=== PATIENT | male | born 1965 | race Caucasian/White ===

== ENCOUNTER 2017-03-15 16:48 | Emergency (ER) | payer SELFPAY ==
[~2017-03-15] VITALS: Ht 177.8 cm; Wt 140.0 kg
[~2017-03-15 16:48] MED LIST: ALLO300T2 PO; BUPR-105 PO; LEVO50TA11 PO; LORA1TAB3 PO; METO25TA6 PO; NITR0.4T39 SL; OMEP20CA10 PO; OXYC-533 PO; PRAV40TA PO; RIVA20TA PO; ZOLP5TAB8 PO
[2017-03-15 16:52] VITALS: Ht 177.8 cm; Wt 140.0 kg
--- OUTSIDE RECORDS SUMMARY | 2017-03-15 16:52 | XMS REPORT ---
Author Author GENERATED, SYSTEM Organization Unknown Address Unknown Phone Unavailable Care Team Providers Care Benefits Manager Name Role Phone UNASSIGNED DOCTOR , DOCTOR PP [phone] Reason For Visit Chief Complaint CHEST PAIN, SOB Social History Functional Status Vital Signs Results Chemistry from 03/23/2015 3:56 AMSODIUM 135 MMOL/L L (136-145 MMOL/L) POTASSIUM 4.2 MMOL/L (3.5-5.1 MMOL/L) CHLORIDE 97 MMOL/L L (98-107 MMOL/L) TCO2 31.4 MMOL/L (21.0-32.0 MMOL/L) ANION GAP 6.6 MMOL/L L (8.0-16.0 MMOL/L) BUN 19 MG/DL H (7-18 MG/DL) CREATININE 1.16 MG/DL H (0.63-1.13 MG/DL) BUN/CREATININE RATIO 16.4 (9.1-17.0 ) GLUCOSE 111 MG/DL H (65-99 MG/DL) GFR EST NON AFR MALAGASY 72 ML/MIN GFRA EST AFR AMER 84 ML/MIN CALCIUM 9.1 MG/DL (8.5-10.1 MG/DL) BILIRUBIN TOTAL 0.38 MG/DL (0.20-1.00 MG/DL) TOTAL PROTEIN 7.5 GM/DL (6.4-8.2 GM/DL) ALBUMIN 3.8 GM/DL (3.4-5.0 GM/DL) GLOBULIN 3.7 GM/DL H (2.3-3.5 GM/DL) A/G RATIO 1.0 MG/DL L (1.5-2.2 MG/DL) ALK PHOS 61 U/L (46-116 U/L) ALT (SGPT) 24 U/L (14-59 U/L) AST (SGOT) 15 U/L (15-37 U/L) TROPONIN-I <0.04 (SEE BELOW ) Hematology from 03/23/2015 3:56 AMWBC 8.9 X10e3/UL (3.6-11.2 X10e3/UL) RBC 4.22 X10e6/UL (4.06-5.63 X10e6/UL) HEMOGLOBIN 13.2 G/DL (12.5-16.3 G/DL) HEMATOCRIT 38.4 % (36.7-47.1 %) MCV 90.9 FL (80.0-100.0 FL) MCH 31.2 PG (27.0-33.0 PG) MCHC 34.3 G/DL (32.0-36.0 G/DL) RDW 13.8 % (12.3-17.0 %) RDWSD 43.3 (37.1-47.8 ) PLATELET 264 X10e3/UL (159-386 X10e3/UL) MPV 7.7 FL (7.4-10.4 FL) AUTOMATED DIFF PERFORMED SEGS 58.1 % LYMPHOCYTES 32.4 % MONOCYTES 7.8 % EOSINOPHILS 1.4 % BASOPHILS 0.3 % ABSOLUTE NEUTROPHILS 5.20 X10e3/UL (1.80-7.80 X10e3/UL) ABSOLUTE LYMPHOCYTES 2.90 X10e3/UL (1.00-3.00 X10e3/UL) ABSOLUTE MONOCYTES 0.70 X10e3/UL (0.30-1.00 X10e3/UL) ABSOLUTE EOSINOPHILS 0.10 X10e3/UL (0.00-0.50 X10e3/UL) ABSOLUTE BASOPHILS 0.00 X10e3/UL (0.00-0.20 X10e3/UL) DX Radiology from 03/23/2015 3:47 AMCHEST 2 VIEWS DATE OF EXAM: Mar 23 2015 4: 02AM Proc: DG 0067 - CHEST 2 VIEWS CPT Code(s): 53952-; ; ; INDICATION / CLINICAL HISTORY: Chest Pain Two views of the chest were obtained and compared to the prior study dated 03/11/2015. FINDINGS: There is unchanged cardiomegaly. The pulmonary vasculature is within normal limits. No consolidating infiltrate, pleural effusion, or pneumothorax is seen. IMPRESSION: Cardiomegaly without acute abnormality. Problems Encounter Diagnosis No relevant problems exist. Additional Problems * Acute Pain Comment:Problem resolved by [facility] Workflow upon Discharge, Status :Resolved. * Atrial Fibrillation Comment:Problem resolved by [facility] Workflow upon Discharge, Status:Resolved. * Chest Pain Comment:Problem resolved by [facility] Workflow upon Discharge, Status :Resolved. * Chest Pain Comment:Problem resolved by [facility] Workflow upon Discharge, Status :Resolved. * Chest Pain Comment:Problem resolved by [facility] Workflow upon Discharge, Status :Resolved. * Chest Pain Comment:Problem resolved by [facility] Workflow upon Discharge, Status :Resolved. * Fall Risk Comment:Problem resolved by [facility] Workflow upon Discharge, Status: Resolved. * Headache Comment:Problem resolved by [facility] Workflow upon Discharge, Status: Resolved. * History of Depression Comment:Problem resolved by [facility] Workflow upon Discharge, Status:Resolved. * History of Gout Comment:Problem resolved by [facility] Workflow upon Discharge, Status:Resolved. * History of Hypertension Comment:Problem resolved by [facility] Workflow upon Discharge, Status:Resolved. * History of Hypertension Comment:Problem resolved by [facility] Workflow upon Discharge, Status:Resolved. * History of Hypothyroidism Comment:Problem resolved by [facility] Workflow upon Discharge, Status:Resolved. * History of Myocardial Infarction Comment:Problem resolved by [facility] Workflow upon Discharge, Status:Resolved. * History of Myocardial Infarction Comment:Problem resolved by [facility] Workflow upon Discharge, Status:Resolved. * History of TIA Comment:Problem resolved by [facility] Workflow upon Discharge, Status:Resolved. * Hx CAD w/ Stent Placement Comment:Problem resolved by [facility] Workflow upon Discharge, Status:Resolved. * Hypercholesterolemia Comment:Problem resolved by [facility] Workflow upon Discharge, Status:Resolved. * Hyperglycemia Comment:Problem resolved by [facility] Workflow upon Discharge, Status:Resolved. * Hyperlipidemia Comment:Problem resolved by [facility] Workflow upon Discharge, Status:Resolved. * Hypothyroidism Comment:Problem resolved by [facility] Workflow upon Discharge, Status:Resolved. * Mobility Impairment Comment:Problem resolved by [facility] Workflow upon Discharge, Status:Resolved. * Rapid Atrial Fibrillation Comment:Problem resolved by [facility] Workflow upon Discharge, Status:Resolved. * Skin Integrity Impairment Risk Comment:Problem resolved by [facility] Workflow upon Discharge, Status:Resolved. * Tobacco Dependence in Remission Comment:Problem resolved by [facility] Workflow upon Discharge, Status:Resolved. Encounters Encounter Diagnosis No relevant problems exist. Plan of Care Procedures * Completed Procedure Code: 37.22 Procedure Name: not valued, on 02/11/2015 12: 00 AM * Completed Procedure Code: 88.53 Procedure Name: not valued, on 02/11/2015 12: 00 AM * Completed Procedure Code: 88.56 Procedure Name: not valued, on 02/11/2015 12: 00 AM Immunizations No immunizations administered or ordered. Hospital Course Hospital Discharge Instructions Allergies, Adverse Reactions, Alerts * Dilaudid causes Itching. * codeine causes Moderate Nausea/Vomiting. * Darvon causes unspecified. * Latex Allergy has not been assessed. * IV Contrast Allergy has not been assessed. * No Known Food Allergies. Medication Medication reconciliation has not been performed.
--- OUTSIDE RECORDS SUMMARY | 2017-03-15 16:53 | XMS REPORT ---
Author Author Stuart Baltazar Organization [facility] Address [address] [place], [place] [address] Care Team Providers Care Brush Finisher Name Role Phone Stuart Baltazar Unavailable [phone] PROBLEMS Type Condition ICD9-CM Code WHB87-DE Code Onset Dates Condition Status SNOMED Code Problem Anxiety 300.00 Active 43731888 Problem Hypothyroidism E03.9 Active 26396124 Problem Hypothyroidism 244.9 Active 87574240 Problem Panic attacks F41.0 Active 14421834 Problem Hyperlipidemia 272.4 Active 21591990 Problem Depression F32.9 Active 073426016 Problem Atrial fibrillation with RVR I48.91 Active 13677090 Problem Chronic anticoagulation Z79.01 Active 156214683 Problem Anxiety about health F41.8 Active 257256445 Problem Insomnia G47.00 Active 444216810 Problem Coronary artery disease 414.00 Active 29885689 Problem Gout 274.9 Active 60669356 Problem Essential hypertension 401.9 Active 57042912 Problem Knee pain, left M25.562 Active 617821800 Problem Coronary artery disease I25.10 Active 47375846 Problem Gout M10.9 Active 48371626 Problem 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 Active 879344172624645 Problem Acute gout 274.01 Active 73031730 Problem Atrial fibrillation 427.31 Active 99392564 Problem Atrial fibrillation with RVR 427.31 Active 69807118 Problem Cellulitis, face 682.0 Active 475938285 Problem Depression 311 Active 565625641 Problem Essential hypertension I10 Active 15310022 Problem Seborrheic dermatitis 690.10 Active 36962695 Problem Chronic anticoagulation V58.61 Active 040559106 ALLERGIES Unknown Allergies SOCIAL HISTORY No smoking Hx information available PLAN OF CARE VITAL SIGNS MEDICATIONS Unknown Medications RESULTS No Results PROCEDURES No Known procedures IMMUNIZATIONS No Known Immunizations
--- OUTSIDE RECORDS SUMMARY | 2017-03-15 16:53 | XMS REPORT ---
Author Author GENERATED, SYSTEM Organization Unknown Address Unknown Phone Unavailable Care Team Providers Care Director Of Physiotherapy Services Name Role Phone UNASSIGNED DOCTOR , DOCTOR PP [phone] Reason For Visit Chief Complaint CHEST PAIN NOS,CHEST PAIN,CHEST PAIN NOS,HISTORY OF TOBACCO USE Social History Functional Status Vital Signs Results Chemistry from 06/03/2015 3:15 PMCOCAINE NEGATIVE (NEG <150 ) PCP NEGATIVE (NEG <25 ) OXYCODONE POSITIVE A (NEG <100 ) *PROPOXYPHENE (NORPROPOXYPHENE) (LAB) NEGATIVE (NEG <300 ) CANNABINOIDS NEGATIVE (NEG <50 ) BENZODIAZEINE POSITIVE A (NEG <150 ) AMPHETAMINE NEGATIVE (NEG <500 ) BARBITURATES NEGATIVE (NEG <200 ) METHAMPHETAMINES POSITIVE A (NEG <500 ) METHADONE (UR) NEGATIVE (NEG <200 ) OPIATES POSITIVE A (NEG <100 ) TRICYCLICS NEGATIVE (NEG <300 ) Chemistry from 06/03/2015 2:43 PMSODIUM 138 MMOL/L (136-145 MMOL/L) POTASSIUM 4.4 MMOL/L (3.5-5.1 MMOL/L) CHLORIDE 103 MMOL/L (98-107 MMOL/L) TCO2 29.7 MMOL/L (21.0-32.0 MMOL/L) ANION GAP 5.3 MMOL/L L (8.0-16.0 MMOL/L) BUN 15 MG/DL (7-18 MG/DL) CREATININE 0.94 MG/DL (0.70-1.30 MG/DL) BUN/CREATININE RATIO 16.0 (9.1-17.0 ) GLUCOSE 112 MG/DL H (65-99 MG/DL) GFR EST NON AFR [place] >90 ML/MIN GFRA EST AFR AMER >90 ML/MIN CALCIUM 8.4 MG/DL L (8.5-10.1 MG/DL) BILIRUBIN TOTAL 0.26 MG/DL (0.20-1.00 MG/DL) TOTAL PROTEIN 7.1 GM/DL (6.4-8.2 GM/DL) ALBUMIN 3.3 GM/DL L (3.4-5.0 GM/DL) GLOBULIN 3.8 GM/DL H (2.3-3.5 GM/DL) A/G RATIO 0.9 MG/DL L (1.5-2.2 MG/DL) ALK PHOS 60 U/L (46-116 U/L) ALT (SGPT) 27 U/L (14-59 U/L) AST (SGOT) 16 U/L (15-37 U/L) LIPASE 79 U/L (73-393 U/L) TROPONIN-I <0.04 (SEE BELOW ) Hematology from 06/03/2015 2:43 PMWBC 9.4 X10e3/UL (3.6-11.2 X10e3/UL) RBC 4.42 X10e6/UL (4.06-5.63 X10e6/UL) HEMOGLOBIN 13.0 G/DL (12.5-16.3 G/DL) HEMATOCRIT 38.8 % (36.7-47.1 %) MCV 87.9 FL (80.0-100.0 FL) MCH 29.4 PG (27.0-33.0 PG) MCHC 33.4 G/DL (32.0-36.0 G/DL) RDW 12.7 % (12.3-17.0 %) PLATELET 280 X10e3/UL (159-386 X10e3/UL) MPV 7.6 FL (7.4-10.4 FL) AUTOMATED DIFF PERFORMED SEGS 66.4 % LYMPHOCYTES 25.3 % MONOCYTES 6.1 % EOSINOPHILS 1.6 % BASOPHILS 0.6 % ABSOLUTE NEUTROPHILS 6.10 X10e3/UL (1.80-7.80 X10e3/UL) ABSOLUTE LYMPHOCYTES 2.40 X10e3/UL (1.00-3.00 X10e3/UL) ABSOLUTE MONOCYTES 0.60 X10e3/UL (0.30-1.00 X10e3/UL) ABSOLUTE EOSINOPHILS 0.20 X10e3/UL (0.00-0.50 X10e3/UL) ABSOLUTE BASOPHILS 0.10 X10e3/UL (0.00-0.20 X10e3/UL) *PLATELET SLIDE REVIEW ADEQUATE (ADEQUATE ) Coagulation from 06/03/2015 2:43 PMPROTHROMBIN TIME 11.1 SECONDS (9.4-11.5 SECONDS) INR 1.1 (0.9-1.1 ) PARTIAL THROMBOPLASTIN TIME <20.0 SECONDS L (23.0-31.0 SECONDS) D-DIMER 0.55 MG/L FEU H (0.00-0.50 MG/L FEU) DX Radiology from 06/03/2015 2:10 PMCHEST 1 VIEW History: Chest Pain Priors: 04/14/2015 Findings: Mild denies cardiomegaly. No acute infiltrate, pneumothorax or pleural effusions identified. Impression: Cardiomegaly without evidence of acute cardiopulmonary process Electronically signed by: Dinh Moeller MD Dictated: 06/03/2015 14:40 CT Scan from 06/03/2015 2:09 PMCT CEREBRAL W/O CONTRAST History: Syncope x3 in the last 3 days. Priors: None. Findings: Ventricles and Extra axial spaces: Normal in size and morphology for the patient's age. Hemorrhage: None. Cerebral parenchyma: Normal. Mass effect/midline shift: None. Brainstem/Cerebellum: Normal. Calvarium: Normal. Visualized Paranasal sinuses/Mastoids: Clear. Impression: Unremarkable CT scan of the head. Electronically signed by: Dinh Moeller MD Dictated: 06/03/2015 14:19 Problems Encounter Diagnosis No relevant problems exist. Additional Problems * Acute Pain Comment:Problem resolved by [facility] Workflow upon Discharge, Status :Resolved. * Acute Pain Comment:Problem resolved by [facility] [...] Discharge Instructions Allergies, Adverse Reactions, Alerts * Percocet causes Mild Itching. * Dilaudid causes Itching. * codeine causes Moderate Nausea/Vomiting. * Darvon causes unspecified. * Latex Allergy has not been assessed. * IV Contrast Allergy has not been assessed. * No Known Food Allergies. Medication Medication reconciliation has not been performed.
--- OUTSIDE RECORDS SUMMARY | 2017-03-15 16:53 | XMS REPORT ---
Author Author GENERATED, SYSTEM Organization Unknown Address Unknown Phone Unavailable Care Team Providers Care Horse And Wagon Driver Name Role Phone UNASSIGNED DOCTOR MD TEZ DOCTOR PP [phone] Reason For Visit Chief Complaint CHEST PAIN/ WEAKNESS Social History Functional Status Vital Signs Results Problems Encounter Diagnosis No relevant problems exist. Additional Problems * Acute Pain Status:Active. * Atrial Fibrillation Status:Active. * Chest Pain Comment:Problem resolved by [facility] Workflow upon Discharge, Status :Resolved. * Chest Pain Comment:Problem resolved by [facility] Workflow upon Discharge, Status :Resolved. * Chest Pain Comment:Problem resolved by [facility] Workflow upon Discharge, Status :Resolved. * Chest Pain Status:Active. * Fall Risk Status:Active. * Headache Comment:Problem resolved by [facility] Workflow [...] Workflow upon Discharge, Status:Resolved. * Mobility Impairment Status:Active. * Rapid Atrial Fibrillation Comment:Problem resolved by [facility] Workflow upon Discharge, Status:Resolved. * Skin Integrity Impairment Risk Status:Active. * Tobacco Dependence in Remission Comment:Problem resolved [...]
--- OUTSIDE RECORDS SUMMARY | 2017-03-15 16:53 | XMS REPORT | Continuity of Care Document ---
Author Author [facility] Organization [facility] Address Unknown Phone Unavailable Support Name Relationship Address Phone JOVAN SUN MD Caregiver [address] [place] [address] Unavailable RACHELE PRYOR MD Caregiver [address] [place] [address] Unavailable SHARMILA VOGT JR Next Of Kin Unknown [phone] Insurance Providers Guarantor Sharmila Vogt Address [address] [place] [address] Email DENIED/NO TO PORTAL Payer Self Pay Subscriber's Name Sharmila Vogt Relationship 18 Self Advance Directives Directive Response Recorded Date/Time Advanced Directives Type None 10/31/16 2:29pm Chief Complaint and Reason for Visit Chief Complaint Psychiatric Problems Reason for Visit [id number] Problems Active Problems Medical Problem Onset Date Status ALLERGIC REACTION TO ROCEPHIN Unknown Acute Medical clearance for psychiatric admission Unknown Acute Past Problems Medical Problem Onset Date Atypical chest pain Unknown Atypical chest pain Unknown Medications Current Home Medications Medication Dose Units Route Directions Days Qty Instructions Start Date Allopurinol 300 Mg Tablet 300 Mg Oral Daily 09/23/16 Bupropion Hcl (Bupropion Hcl Sr) 150 Mg Tablet.er 150 Mg Oral Twice A Day 10/31/16 Levothyroxine Sodium 50 Mcg Tablet 50 Mcg Oral Before Breakfast 09/23/16 Lorazepam 1 Mg Tablet 1 Mg Oral Every 6 Hr Prn as needed for Anxiety 09/23/16 Metoprolol Tartrate 25 Mg Tablet 25 Mg Oral Twice A Day 10/03/16 Nitroglycerin 0.4 Mg Tab.subl 0.4 Mg Sublingual Every 5 Minutes X 3 as needed for Chest Tightness 10/03/16 Omeprazole 20 Mg Capsule.dr 20 Mg Oral Daily 10/03/16 Oxycodone Hcl/Acetaminophen (Oxycodone-Acetaminophen 10-325) 10-325 Tablet 1 Tab Oral Every 6 Hours as needed for Pain 10/03/16 Pravastatin Sodium (Pravachol) 40 Mg Tablet 40 Mg Oral Daily Rivaroxaban (Xarelto) 20 Mg Tablet 20 Mg Oral Daily 10/03/16 Zolpidem Tartrate 5 Mg Tablet 5-10 Mg Oral Bedtime 10/03/16 Past Home Medications Medication Directions Ordered Status Allopurinol 300 Mg Tablet, 300 Mg Oral Daily 10/28/12 Discontinued Allopurinol , 07/25/12 Discontinued Ascorbic Acid (Vitamin C) 1,000 Mg Tablet, 1000 Mg Oral Daily 02/27/13 Discontinued Cholecalciferol (Vitamin D) 1,000 Unit Tablet, 500 Unit Oral Daily 02/27/13 Discontinued Cyanocobalamin (Vitamin B-12) 1,000 Mcg Tablet, 1000 Mcg Oral Daily 02/27/13 Discontinued Ibuprofen 800 Mg Tablet, 800 Mg Oral Every 8 Hours as needed 03/14/13 Discontinued Metoprolol , Oral Daily 07/25/12 Discontinued Prednisone 20 Mg Tablet, 40 Mg Oral Daily 03/14/13 Discontinued Sertraline , 07/25/12 Discontinued Sertraline Hcl (Zoloft) 100 Mg Tablet, 100 Mg Oral Daily 10/28/12 Discontinued Vitamin E Mixed (Vitamin E) 1,000 Unit Capsule, 2000 Unit Oral Daily Discontinued Social History Social History Problem Response Recorded Date/Time Onset Date Status Hx Substance Use No 10/31/2016 2:33pm Not Applicable Not Applicable Hx Alcohol Use Y RARELY 10/31/2016 2:33pm Not Applicable Not Applicable Has the pt used tobacco in the last 12 months Yes 02/27/2013 3:09pm Not Applicable Not Applicable Query Response Start Date Stop Date Smoking Status Former smoker Hospital Discharge Instructions No hospital discharge instructions. Plan of Care Discharge Date 11/01/16 4:37pm Disposition 65 TO PSYCH HOSP/UNIT Condition at Discharge Improved Prescriptions See Medication Section Referrals JOVAN SUN MD Address: [address] [place] [phone] Functional Status No functional status results. Allergies, Adverse Reactions, Alerts Allergen Type Severity Reaction Status Last Updated propoxyphene HCl Allergy Unknown Active 10/31/16 ceftriaxone sodium Allergy Severe TONGUE SWELLING, DIFFICULTY BREATHING Active 10/31/16 Codeine Allergy Unknown Active 10/31/16 Immunizations Query Response on File Recorded Date/Time Hx Influenza Vaccination No 08/05/13 12:44pm Hx Pneumococcal Vaccination No 08/05/13 12:44pm Hx Influenza Vaccination No 08/05/13 12:44pm Influenza Vaccine Hx NO 10/03/16 5:57pm Vital Signs Acute Vital Signs Vital Response Date/Time Temperature (Fahrenheit) 98.1 deg F (96.8 - 99.1) 11/01/2016 4:56pm Temperature (Calculated Celsius) 36.85854 degrees C (36.0 - 37.3) 11/01/2016 4:56pm Pulse Rate (adult) 88 bpm (60 - 100) 11/01/2016 4:56pm Respiratory Rate 16 breaths/min (10 - 20) 11/01/2016 4:56pm O2 Sat by Pulse Oximetry 99 % (90 - 100) 11/01/2016 4:56pm Blood Pressure 146/78 mm Hg 11/01/2016 4:56pm Blood Pressure 136/77 mm Hg 11/01/2016 4:56pm Height (Feet) 5 feet 10/31/2016 2:29pm Height (Inches) 11.00 inches 10/31/2016 2:29pm Weight (Kilograms) 139.300 kg 10/31/2016 2:29pm Body Mass Index (BMI) 42.0 10/31/2016 2:29pm Results Laboratory Results Test Name Result Units Flags Reference Collection Date/Time Result Date/ Time Comments Total Bilirubin 0.40 MG/DL 0.20-1.30 09/23/2016 12:52am 09/23/2016 1: 13am Alkaline Phosphatase 60 U/L 38-126 09/23/2016 12:52am 09/23/2016 1: 13am Total Protein 7.2 G/DL 6.3-8.2 09/23/2016 12:52am 09/23/2016 1:13am Albumin 4.2 G/DL 3.5-5.0 09/23/2016 12:52am 09/23/2016 1:13am Globulin 3.0 G/DL 2.4-3.6 09/23/2016 12:52am 09/23/2016 1:13am Albumin/Globulin Ratio 1.4 RATIO 1.1-2.2 09/23/2016 12:52am 09/23/2016 1:13am Aspartate Amino Transf (AST/SGOT) 34 U/L 17-59 09/23/2016 12:52am 09/23 1:13am Alanine Aminotransferase (ALT/SGPT) 49 U/L 21-72 09/23/2016 12:52am 1:13am Magnesium Level 1.9 MG/DL 1.6-2.3 09/23/2016 12:52am 09/23/2016 1:13am Prothromb Time International Ratio 1.22 H 0.99-1.21 10/03/2016 6:10pm 10/03/2016 6:21pm THERAPUTIC RANGE=2.00-3.00 FOR ANTI-THROMBOSIS THERAPUTIC RANGE=2.50-3.50 FOR IMPLANTED VALVE D-Dimer < 150 NG/ML 0-230 10/03/2016 6:09pm 10/03/2016 7:39pm <230 NG/ ML D-DU=PRESUMPTIVE NEGATIVE FOR PE OR DVT >230 NG/ML D-DU=ADDITIONAL EVAL FOR PE OR DVT RECOMMENDED Troponin I < 0.012 ng/ml 0-0.12 10/03/2016 6:10pm 10/03/2016 6:38pm Troponin values with a difference of 55% increase from orginal troponin value represent a true biological DELTA value. (%increase Calc=Orginal Troponin value, divided by subsequent Troponin value, multiplied by 100) GM-Dyj-C-Type Natriuretic Peptide 75 PG/ML 0-175 10/03/2016 6:10pm 6:38pm Rule in cut points: <50 years old=450; 50-75 years old=900; >75 years old=1800; When utilizing ProBNP rule-in cut points, adjustment for impaired renal function is typically not required. White Blood Count 8.2 T/MM3 4.5-11.0 10/31/2016 3:12pm 10/31/2016 3: 17pm Red Blood Count 4.73 M/MM3 4.50-5.90 10/31/2016 3:12pm 10/31/2016 3: 17pm Hemoglobin 13.9 GM/DL 13.5-17.5 10/31/2016 3:12pm 10/31/2016 3:17pm Hematocrit 41.6 % 41-53 10/31/2016 3:12pm 10/31/2016 3:17pm Mean Corpuscular Volume 87.9 UM3 80-100 10/31/2016 3:10/31/2016 3: 17pm Mean Corpuscular Hemoglobin 29.4 UUG 26-34 10/31/2016 3:2015 3:17pm Mean Corpuscular Hemoglobin Concent 33.4 GM/DL 31-37 10/31/2016 3:10/31/2016 3:17pm RDW Standard Deviation 43.1 FL 36.9-50.2 10/31/2016 3:10/31/2016 3 :17pm Platelet Count 268 T/MM3 130-400 10/31/2016 3:10/31/2016 3:17pm Mean Platelet Volume 9.7 UM3 9.4-12.4 10/31/2016 3:10/31/2016 3: 17pm Neutrophils (%) (Auto) 61.9 % 33-66 10/31/2016 3:10/31/2016 3: 17pm Lymphocytes (%) (Auto) 27.9 % 23-45 10/31/2016 3:10/31/2016 3: 17pm Monocytes (%) (Auto) 8.3 % 0-9.0 10/31/2016 3:10/31/2016 3:17pm Eosinophils (%) (Auto) 1.3 % 0-4 10/31/2016 3:10/31/2016 3:17pm Basophils (%) (Auto) 0.1 % 0-2 10/31/2016 3:10/31/2016 3:17pm Immature Granulocyte % (Auto) 0.5 % 0.0-0.5 10/31/2016 3:2015 3:17pm Absolute Neutrophils (auto) 5.1 T/MM3 1.8-7.7 10/31/2016 3:2015 3:17pm Absolute Lymphocytes (auto) 2.3 T/MM3 1-4.8 10/31/2016 3:2015 3:17pm Absolute Monocytes (auto) 0.7 T/MM3 0-0.8 10/31/2016 3:12p10/31/2016 3:17pm Absolute Eosinophils (auto) 0.1 T/MM3 0-0.5 10/31/2016 3:2015 3:17pm Absolute Basophils (auto) 0.0 T/MM3 0-0.2 10/31/2016 3:10/31/2016 3:17pm Absolute Immature Granulocyte (auto 0.04 T/MM3 H 0.00-0.03 10/31/2016 3: 10/31/2016 3:17pm Icterus Index < 2 0-7 10/31/2016 3:10/31/2016 3:27pm Chemistry Specimen Hemolysis < 15 0-25 10/31/2016 3:10/31/2016 3 :27pm 0-25: Specimen Exhibited No Hemolysis. Turbidity < 20 0-20 10/31/2016 3:10/31/2016 3:27pm Sodium Level 141 MEQ/L 134-144 10/31/2016 3:10/31/2016 3:27pm Potassium Level 4.7 MEQ/L 3.6-5 10/31/2016 3:10/31/2016 3:27pm Chloride Level 103 MEQ/L 98-107 10/31/2016 3:10/31/2016 3:27pm Carbon Dioxide Level 28 MEQ/L 22-30 10/31/2016 3:10/31/2016 3: 27pm Anion Gap 10 MEQ/L 5-15 10/31/2016 3:10/31/2016 3:27pm Blood Urea Nitrogen 14.0 MG/DL 9-10/31/2016 3:10/31/2016 3: 27pm Creatinine 1.0 MG/DL 0.8-1.5 10/31/2016 3:10/31/2016 3:27pm BUN/Creatinine Ratio 14 RATIO 6-10/31/2016 3:10/31/2016 3:27pm Glomerular Filtration Rate Calc 78 10/31/2016 3:10/31/2016 3: 27pm Glucose Level 101 MG/DL 75-110 10/31/2016 3:10/31/2016 3:27pm Calculated Osmolality 272 MOSM/KG 261-280 10/31/2016 3:10/31/2016 3:27pm Calcium Level 9.6 MG/DL 8.4-10.2 10/31/2016 3:12pm 10/31/2016 3:27pm Acetaminophen Level < 10 UG/ML L 10-30 10/31/2016 3:12pm 10/31/2016 4: 47pm TOXIC <4 HR POST INGESTION: >150 MG/L; TOXIC <12 HR POST INGESTION: >50 MG/L Salicylates Level < 1.0 MG/DL L 2-20 10/31/2016 3:12pm 10/31/2016 4: 47pm Alcohol, Quantitative <10 MG/DL <10 10/31/2016 3:12pm 10/31/2016 4: 47pm Thyroid Stimulating Hormone (TSH) 1.97 MIU/L 0.47-4.68 10/31/2016 3: 12pm 10/31/2016 3:56pm Urine Collection Type [place] 10/31/2016 3:56pm 2015 4:05pm Urine Color YELLOW YELLOW 10/31/2016 3:56pm 10/31/2016 4:05pm Urine Turbidity CLEAR CLEAR 10/31/2016 3:56pm 10/31/2016 4:05pm Urine Specific [place] 1.020 1.015-1.025 10/31/2016 3:56pm 2015 4:05pm Urine pH 6.5 5.0-8.0 10/31/2016 3:56pm 10/31/2016 4:05pm Urine Leukocyte Esterase NEGATIVE NEGATIVE 10/31/2016 3:56pm 2015 4:05pm Urine Nitrite NEGATIVE NEGATIVE 10/31/2016 3:56pm 10/31/2016 4:05pm Urine Protein TRACE A NEGATIVE 10/31/2016 3:56pm 10/31/2016 4:05pm Urine Glucose (UA) NEGATIVE NEGATIVE 10/31/2016 3:56pm 10/31/2016 4: 05pm Urine Ketones NEGATIVE NEGATIVE 10/31/2016 3:56pm 10/31/2016 4:05pm Urine Urobilinogen 0.2 EU/DL NORMAL 10/31/2016 3:56pm 10/31/2016 4: 05pm Urine Bilirubin NEGATIVE NEGATIVE 10/31/2016 3:56pm 10/31/2016 4: 05pm Urine Blood NEGATIVE NEGATIVE 10/31/2016 3:56pm 10/31/2016 4:05pm Urinalysis Comment MICROSCOPIC NOT IND. 10/31/2016 3:56pm 2015 4:05pm Procedures Procedure Status Date Provider(s) MRI JNT OF [facility]WR SANDI W/O DYE Completed 08/08/16 THER/PROPH/DIAG INJ IV PUSH Completed 09/23/16 TX/PRO/DX INJ NEW DRUG ADDON Completed 09/23/16 TX/PRO/DX INJ SAME DRUG TERRITORY MANAGER Completed 09/23/16 THER/PROPH/DIAG INJ IV PUSH Completed 10/03/16 TX/PRO/DX INJ NEW DRUG ADDON Completed 10/03/16 Encounters Encounter Location Arrival/Admit Date Discharge/Depart Date Attending Provider Departed Emergency Room [facility] 10/31/16 2:24pm 11/01/16 4: 37pm RACHELE PRYOR MD Departed Emergency Room [facility] 10/03/16 5:48pm 10/03/16 8: 50pm MARCHAVINASH DO Departed Emergency Room [facility] 09/23/16 12:40am 09/23/16 2: 51am JODY PARTIDA MD Registered Clinic [facility] 08/08/16 3:02pm JOVAN SUN MD Recent Diagnosis
--- OUTSIDE RECORDS SUMMARY | 2017-03-15 16:53 | XMS REPORT ---
Author Author GENERATED, SYSTEM Organization Unknown Address Unknown Phone Unavailable Care Team Providers Care Buckram Sewer Name Role Phone UNASSIGNED DOCTOR , DOCTOR PP [phone] Reason For Visit Reason for Visit from 03/12/2015 1:32 AM:* Pt Stated Reason for Adm : Afib and chest pain Chief Complaint AFIB CP Social History Social History from 03/13/2015 10:34 AM:* Tobacco Use? : Former Smoker Social History from 03/12/2015 1:32 AM:* Tobacco Use? : Former Smoker Functional Status Functional Status from 03/13/2015 7:45 AM:* LOC : Alert * Oriented To : Person,Place,Time,Event * Weight Bearing Status : Full * Assist Level : Independent * # Assists : Independent Functional Status from 03/12/2015 7:54 PM:* LOC : Alert * Oriented To : Person,Place,Time,Event * Weight Bearing Status : Full * Assist Level : Independent * # Assists : Independent Functional Status from 03/12/2015 8:10 AM:* LOC : Alert * Oriented To : Person,Place,Time,Event * Weight Bearing Status : Full * Assist Level : Independent * # Assists : Independent Functional Status from 03/12/2015 1:32 AM:* LOC : Alert * Oriented To : Person,Place,Time,Event * Weight Bearing Status : Full * Assist Level : Partial * # Assists : 1 Vital Signs Hospital Vital Signs from 03/13/2015 7:28 AM:* Height : 5/11 ft,in * Temperature : 97.6 F * Pulse : 52 * Respirations : 20 * BP : 151/79 Hospital Vital Signs from 03/13/2015 3:10 AM:* Height : 5/11 ft,in * Temperature : 97.6 F * Pulse : 61 * Respirations : 20 * BP : 108/54 Hospital Vital Signs from 03/12/2015 9:15 PM:* Height : 5/11 ft,in * Pulse : 60 * Respirations : 20 * BP : 132/72 Hospital Vital Signs from 03/12/2015 7:54 PM:* Heart Rate : 65 Hospital Vital Signs from 03/12/2015 7:00 PM:* Heart Rate : 51 Hospital Vital Signs from 03/12/2015 6:00 PM:* Heart Rate : 60 Hospital Vital Signs from 03/12/2015 5:00 PM:* Heart Rate : 56 Hospital Vital Signs from 03/12/2015 4:45 PM:* Heart Rate : 55 Hospital Vital Signs from 03/12/2015 4:30 PM:* Heart Rate : 54 Hospital Vital Signs from 03/12/2015 4:15 PM:* Heart Rate : 55 Hospital Vital Signs from 03/12/2015 4:00 PM:* Heart Rate : 52 Hospital Vital Signs from 03/12/2015 3:45 PM:* Heart Rate : 57 Hospital Vital Signs from 03/12/2015 3:30 PM:* Heart Rate : 56 Hospital Vital Signs from 03/12/2015 2:45 PM:* Heart Rate : 0 * Resp Rate : 13 * Systolic BP (mmHg) : 110 * Diastolic BP (mmHg) : 74 * Mean BP (mmHg) : 85 Hospital Vital Signs from 03/12/2015 12:15 PM:* Heart Rate : 63 * Resp Rate : 18 Hospital Vital Signs from 03/12/2015 9:00 AM:* Weight : 137.5/ kg * Height : 5/11 ft,in Hospital Vital Signs from 03/12/2015 8:15 AM:* Temp : 96.8 * Heart Rate : 51 * Systolic BP (mmHg) : 102 * Diastolic BP (mmHg) : 69 * Mean BP (mmHg) : 81 * O2 Saturation (%) : 96 Hospital Vital Signs from 03/12/2015 8:10 AM:* Heart Rate : 54 Hospital Vital Signs from 03/12/2015 6:15 AM:* Heart Rate : 60 * O2 Saturation (%) : 98 Hospital Vital Signs from 03/12/2015 6:00 AM:* Heart Rate : 60 * Systolic BP (mmHg) : 132 * Diastolic BP (mmHg) : 80 * Mean BP (mmHg) : 96 * O2 Saturation (%) : 98 Hospital Vital Signs from 03/12/2015 5:45 AM:* Heart Rate : 55 * O2 Saturation (%) : 98 Hospital Vital Signs from 03/12/2015 5:30 AM:* Heart Rate : 53 * O2 Saturation (%) : 96 Hospital Vital Signs from 03/12/2015 5:15 AM:* Heart Rate : 59 * O2 Saturation (%) : 95 Hospital Vital Signs from 03/12/2015 5:00 AM:* Heart Rate : 63 * Resp Rate : 21 * Systolic BP (mmHg) : 137 * Diastolic BP (mmHg) : 82 * Mean BP (mmHg) : 98 * O2 Saturation (%) : 97 Hospital Vital Signs from 03/12/2015 4:45 AM:* Heart Rate : 62 * O2 Saturation (%) : 92 Hospital Vital Signs from 03/12/2015 4:30 AM:* Heart Rate : 60 * O2 Saturation (%) : 95 Hospital Vital Signs from 03/12/2015 4:15 AM:* Heart Rate : 67 * O2 Saturation (%) : 94 Hospital Vital Signs from 03/12/2015 4:00 AM:* Heart Rate : 58 * Resp Rate : 17 * Systolic BP (mmHg) : 122 * Diastolic BP (mmHg) : 72 * Mean BP (mmHg) : 87 * O2 Saturation (%) : 98 Hospital Vital Signs from 03/12/2015 3:45 AM:* Heart Rate : 58 * Systolic BP (mmHg) : 95 * Diastolic BP (mmHg) : 59 * Mean BP (mmHg) : 71 * O2 Saturation (%) : 98 Hospital Vital Signs from 03/12/2015 3:30 AM:* Heart Rate : 63 * O2 Saturation (%) : 98 Hospital Vital Signs from 03/12/2015 3:15 AM:* Heart Rate : 60 * O2 Saturation (%) : 95 Hospital Vital Signs from 03/12/2015 3:00 AM:* Heart Rate : 69 * O2 Saturation (%) : 97 Hospital Vital Signs from 03/12/2015 2:30 AM:* Heart Rate : 67 * Systolic BP (mmHg) : 121 * Diastolic BP (mmHg) : 77 * Mean BP (mmHg) : 90 * O2 Saturation (%) : 99 Hospital Vital Signs from 03/12/2015 2:15 AM:* Heart Rate : 63 * Systolic BP (mmHg) : 111 * Diastolic BP (mmHg) : 79 * Mean BP (mmHg) : 89 * O2 Saturation (%) : 98 Hospital Vital Signs from 03/12/2015 2:00 AM:* Temp : 98.2 * Heart Rate : 65 * Resp Rate : 19 * Systolic BP (mmHg) : 116 * Diastolic BP (mmHg) : 78 * Mean BP (mmHg) : 94 * O2 Saturation (%) : 98 Hospital Vital Signs from 03/12/2015 1:45 AM:* Heart Rate : 66 * Systolic BP (mmHg) : 119 * Diastolic BP (mmHg) : 82 * Mean BP (mmHg) : 94 * O2 Saturation (%) : 97 Hospital Vital Signs from 03/12/2015 1:32 AM:* Weight : 137.5/ kg * Height : 5/11 ft,in Results Chemistry from 03/12/2015 10:00 AMCOCAINE NEGATIVE (NEG <150 ) PCP NEGATIVE (NEG <25 ) OXYCODONE NEGATIVE (NEG <100 ) *PROPOXYPHENE (NORPROPOXYPHENE) (LAB) NEGATIVE (NEG <300 ) CANNABINOIDS NEGATIVE (NEG <50 ) BENZODIAZEINE NEGATIVE (NEG <150 ) AMPHETAMINE NEGATIVE (NEG <500 ) BARBITURATES NEGATIVE (NEG <200 ) METHAMPHETAMINES NEGATIVE (NEG <500 ) METHADONE (UR) NEGATIVE (NEG <200 ) OPIATES POSITIVE A (NEG <100 ) TRICYCLICS NEGATIVE (NEG <300 ) Problems Encounter Diagnosis * Acute Pain Comment:Problem resolved by [facility] Workflow upon Discharge, Status :Resolved. * Atrial Fibrillation Status:Active. * Chest Pain Status:Active. * Fall Risk Comment:Problem resolved by [facility] Workflow upon Discharge, Status: Resolved. * Mobility Impairment Comment:Problem resolved by [facility] Workflow upon Discharge, Status:Resolved. * Skin Integrity Impairment Risk Comment:Problem resolved by [facility] Workflow upon Discharge, Status:Resolved. Additional Problems * Headache Comment:Problem resolved by [facility] Workflow [...] Workflow upon Discharge, Status:Resolved. Encounters Encounter Diagnosis * Acute Pain Comment:Problem resolved by [facility] Workflow upon Discharge, Status :Resolved. * Atrial Fibrillation Status:Active. * Chest Pain Status:Active. * Fall Risk Comment:Problem resolved by [facility] Workflow upon Discharge, Status: Resolved. * Mobility Impairment Comment:Problem resolved by [facility] Workflow upon Discharge, Status:Resolved. * Skin Integrity Impairment Risk Comment:Problem resolved by [facility] Workflow upon Discharge, Status:Resolved. Plan of Care Follow-up Appointments from 03/13/2015 10:34 AM:* #1 Office appointment: : Dr. Caban-call for appt in 1-2 weeks * Address # 1 : [facility]: [facility] [place], [place]- or Treatment Plan from 03/12/2015 1:15 PM:* Care Management Note : Patient has no current insurance provider per facesheet in document imaging.Patient admitted to ICU due to a fib and chest pain. Patient treated with nitro paste, IV diltiazem, lovenox, and cardio consult. Plan of care is expected to exceed 2 midnights at this time. Procedures * Completed Procedure Code: 37.22 Procedure Name: not valued, on 02/11/2015 12: 00 AM * Completed Procedure Code: 88.53 Procedure Name: not valued, on 02/11/2015 12: 00 AM * Completed Procedure Code: 88.56 Procedure Name: not valued, on 02/11/2015 12: 00 AM Immunizations No immunizations administered or ordered. Hospital Course Hospital Discharge Instructions How to care for yourself at home from 03/13/2015 10:34 AM:* Discharge Activity : Activity as tolerated * Discharge Diet : Modification as given by physician * Discharge Diet: : cardiac * Call your doctor if: : Fever over 101 F or severe chills,Chest pain or other unexplained symptoms,Tingling or numbness develops,A sudden increase or decrease in weight,You have persistent or worsening symptoms,If you have Heart Failure and you gain 3 pounds within 1 week or your symptoms worsen. (Weigh at home tomorrow morning) * Specific Discharge Teaching Instructions provided: : No * Discharge on Warfarin : No Allergies, Adverse Reactions, Alerts * Dilaudid causes Itching. * codeine causes Moderate Nausea/Vomiting. * Darvon causes unspecified. * No Latex Allergy. * No IV Contrast Allergy. * No Known Food Allergies. Medication It is the responsibility of the patient or patient technology sales representative to confirm the list of medications with either the patient's personal care provider or the patient's follow-up care provider to ensure the patient has an appropriate list of medications to take at home. Discharge medications New medications* flecainide 50 mg Tablet, Ordered By: KARI PHILLIPS APRN Directions: 1 tablet oral twice a day Continued medications* aspirin 325 mg Tablet, Ordered By: KARI PHILLIPS APRN Directions: 1 tablet oral daily every morning Additional Instructions: PHARMACIST: TO BE STARTED TOMORROW (DO NOT CHANGE START DATE/TIME). * atorvastatin (Lipitor) 20 mg Tablet, Ordered By: KARI PHILLIPS APRN Directions: 1 tablet oral daily at bedtime * metoprolol tartrate 50 mg Tablet, Ordered By: KARI PHILLIPS APRN Directions: 1 tablet oral twice a day every morning and at bedtime Additional Instructions: Dr PRAKASH Caban's office is resp for refills * allopurinol 300 mg Tablet, Ordered By: MAC MERLOS RN Directions: 1 tablet oral daily * levothyroxine (Synthroid) 50 mcg Tablet, Ordered By: MAC MERLOS RN Directions: 1 tablet oral daily every morning * sertraline (Zoloft) 50 mg Tablet, Ordered By: MAC MERLOS RN Directions: 1 tablet oral daily every evening * isosorbide mononitrate 60 mg Tablet Extended Release 24 hr, Ordered By: KARI PHILLIPS APRN Directions: 1 tablet oral daily every morning Additional Instructions: Dr PRAKASH Caban's office is resp for refills Stopped medications* None
--- OUTSIDE RECORDS SUMMARY | 2017-03-15 16:53 | XMS REPORT ---
Author Author GENERATED, SYSTEM Organization Unknown Address Unknown Phone Unavailable Care Team Providers Care Smokehouse Worker Name Role Phone UNASSIGNED DOCTORMD DOCTOR PP [phone] Reason For Visit Reason for Visit from 06/29/2014 1:34 AM:* Pt Stated Reason for Adm : Stabbing chest pain. Chief Complaint CHEST PAIN Social History Social History from 06/29/2014 1:34 AM:* Tobacco Use? : Former Smoker Functional Status Functional Status from 06/29/2014 9:25 AM:* LOC : Alert * Oriented To : Person,Place,Time,Event * Weight Bearing Status : Full * Assist Level : Partial * # Assists : 1 Functional Status from 06/29/2014 1:34 AM:* LOC : Alert * Oriented To : Person,Place,Time,Event * Weight Bearing Status : Full * Assist Level : Independent * # Assists : Independent Vital Signs Hospital Vital Signs from 06/29/2014 12:15 PM:* Height : 5/11 ft,in * Temperature : 96.8 F * Pulse : 67 * Respirations : 18 * BP : 147/84 Hospital Vital Signs from 06/29/2014 9:25 AM:* Heart Rate : 84 Hospital Vital Signs from 06/29/2014 8:45 AM:* Weight : 132.9/ kg * Height : 5/11 ft,in Hospital Vital Signs from 06/29/2014 1:36 AM:* Weight : 132.9/ kg * Height : 5/11 ft,in * Temperature : 96.6 F * Pulse : 86 * Respirations : 20 * BP : 131/75 Hospital Vital Signs from 06/29/2014 1:34 AM:* Weight : 132.9/ kg * Height : 5/11 ft,in Results Chemistry from 06/29/2014 11:31 AMTROPONIN-I <0.04 (SEE BELOW ) Chemistry from 06/29/2014 5:03 AMEST AVG GLUCOSE 139.9 gm/dl TROPONIN-I <0.04 (SEE BELOW ) TSH 7.83 UIU/ML H (0.34-4.82 UIU/ML) LDL (DIRECT) CHOLESTEROL 128 MG/DL H (0-99 MG/DL) CK 135 U/L (39-308 U/L) CKMB 1.6 NG/ML (0.0-3.6 NG/ML) HEMOGLOBIN A1C 6.5 % H (4.5-6.2 %) Problems Encounter Diagnosis * Chest Pain Comment:Problem resolved by [facility] Workflow upon Discharge, Status :Resolved. * Headache Comment:Problem resolved by [facility] Workflow [...] upon Discharge, Status:Resolved. Encounters Encounter Diagnosis * Chest Pain Comment:Problem resolved by [facility] Workflow upon Discharge, Status :Resolved. * Headache Comment:Problem resolved by [facility] Workflow [...] Workflow upon Discharge, Status:Resolved. Plan of Care Treatment Plan from 06/29/2014 9:43 AM:* Care Management Note : Admitted appropriately as outpatient observation. Stress test pending. Will follow. Procedures No relevant procedures performed. Immunizations No immunizations administered or ordered. Hospital Course Hospital Discharge Instructions Allergies, Adverse Reactions, Alerts * codeine causes Moderate Nausea/Vomiting. * Darvon causes unspecified. * No Latex Allergy. * No IV Contrast Allergy. * No Known Food Allergies. Medication It is the responsibility of the patient or patient member services representative to confirm the list of medications with either the patient's personal care provider or the patient's follow-up care provider to ensure the patient has an appropriate list of medications to take at home. Preliminary list - medication reconciliation not completed. Discharge medications New medications* oxyCODONE-acetaminophen (Percocet) 10 mg-325 mg Tablet, Ordered By: RAVEN INIGUEZ MD Directions: 2 tablet oral every four hours PRN pain Continued medications* levothyroxine 50 mcg Tablet, Ordered By: RAVEN INIGUEZ MD Directions: 1 tablet oral daily before breakfast * sertraline (Zoloft) 100 mg Tablet, Ordered By: RAVEN INIGUEZ MD Directions: 1 tablet oral daily Stopped medications* None
--- OUTSIDE RECORDS SUMMARY | 2017-03-15 16:53 | XMS REPORT ---
Author Author Stuart Baltazar Organization [facility] Address [address] [place], [place] [id number] Care Team Providers Care Garage Mechanic Name Role Phone Giovanny Stuart Unavailable [phone] PROBLEMS Type Condition ICD9-CM Code [id number] Code Onset Dates Condition Status SNOMED Code Problem Anxiety 300.00 Active 30247401 Problem Hypothyroidism 244.9 Active 38366605 Problem Panic attacks F41.0 Active 67904518 Problem Hyperlipidemia 272.4 Active 16966691 Problem Depression F32.9 Active 931305498 Problem Essential hypertension 401.9 Active 30245147 Problem Chronic anticoagulation Z79.01 Active 960547280 Problem Coronary artery disease I25.10 Active 05427345 Problem Atrial fibrillation with RVR I48.91 Active 75834369 Problem Chronic pain G89.29 Active 01070578 Problem Anxiety about health F41.8 Active 061153690 Problem Atrial fibrillation with RVR 427.31 Active 51433382 Problem Coronary artery disease 414.00 Active 02777502 Problem Gout 274.9 Active 09076178 Problem 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 Active 290555026529614 Problem Knee pain, left M25.562 Active 139550647 Problem Insomnia G47.00 Active 347437163 Problem Gout M10.9 Active 41544327 Problem Atrial fibrillation 427.31 Active 77491973 Problem Seborrheic dermatitis 690.10 Active 74489743 Problem Cellulitis, face 682.0 Active 653683307 Problem Acute gout 274.01 Active 00930612 Problem Essential hypertension I10 Active 59082151 Problem Hypothyroidism E03.9 Active 65045007 Problem Chronic anticoagulation V58.61 Active 941201726 Problem Depression 311 Active 864616230 ALLERGIES Unknown Allergies SOCIAL HISTORY No smoking Hx information available PLAN OF CARE VITAL SIGNS MEDICATIONS Medication Instructions Dosage Frequency Start Date End Date Duration Status Duloxetine HCl 60 MG Orally Once a day 1 capsule 24h Nov, 30 days Active RESULTS No Results PROCEDURES No Known procedures IMMUNIZATIONS No Known Immunizations
--- OUTSIDE RECORDS SUMMARY | 2017-03-15 16:54 | XMS REPORT ---
Author Author GENERATED, SYSTEM Organization Unknown Address Unknown Phone Unavailable Care Team Providers Care Flying Shear Operator Name Role Phone MD CORINNE, JOVAN [phone] Reason For Visit Reason for Visit from 01/02/2016 5:24 PM:* Pt Stated Reason for Adm : Chest pain Chief Complaint ACS AFIB Social History Social History from 01/03/2016 3:07 PM:* Tobacco Use? : Former Smoker Social History from 01/02/2016 5:24 PM:* Tobacco Use? : Former Smoker Functional Status Functional Status from 01/03/2016 10:06 AM:* LOC : Alert * Oriented To : Person,Place,Time,Event * Weight Bearing Status : Full * Assist Level : Partial * # Assists : 1 Functional Status from 01/03/2016 8:23 AM:* LOC : Alert * Oriented To : Person,Place,Time,Event * Weight Bearing Status : Full * Assist Level : Partial * # Assists : 1 Functional Status from 01/02/2016 8:15 PM:* LOC : Alert * Oriented To : Person,Place,Time * Weight Bearing Status : Full * Assist Level : Partial * # Assists : 1 Functional Status from 01/02/2016 5:24 PM:* LOC : Alert * Oriented To : Person,Place,Time,Event * Weight Bearing Status : Full * Assist Level : Partial * # Assists : Independent Vital Signs Hospital Vital Signs from 01/03/2016 3:19 PM:* Height : 5/10 ft,in * Temperature : 98.2 F * Pulse : 60 * Respirations : 20 * BP : 140/72 Hospital Vital Signs from 01/03/2016 9:50 AM:* Height : 5/10 ft,in * Pulse : 70 * BP : 103/57 Hospital Vital Signs from 01/03/2016 9:45 AM:* Height : 5/10 ft,in * Pulse : 61 * BP : 119/63 Hospital Vital Signs from 01/03/2016 8:41 AM:* Height : 5/10 ft,in Hospital Vital Signs from 01/03/2016 7:03 AM:* Height : 5/10 ft,in * Temperature : 96.4 F * Pulse : 71 * Respirations : 20 * BP : 125/59 Hospital Vital Signs from 01/03/2016 6:52 AM:* Weight : 145.7/ kg * Height : 5/10 ft,in Hospital Vital Signs from 01/03/2016 2:40 AM:* Height : 5/10 ft,in * Temperature : 97.6 F * Pulse : 70 * Respirations : 18 * BP : 136/70 Hospital Vital Signs from 01/02/2016 10:10 PM:* Height : 5/10 ft,in * Pulse : 77 * Respirations : 18 * BP : 114/63 Hospital Vital Signs from 01/02/2016 8:15 PM:* Heart Rate : 73 Hospital Vital Signs from 01/02/2016 7:25 PM:* Height : 5/10 ft,in * Temperature : 97.0 F * Pulse : 79 * Respirations : 18 * BP : 134/70 Hospital Vital Signs from 01/02/2016 5:24 PM:* Weight : 138.7/ kg * Height : 5/10 ft,in Hospital Vital Signs from 01/02/2016 5:09 PM:* Weight : 138.7/ kg * Height : 5/10 ft,in * Temperature : 96.7 F * Pulse : 105 * Respirations : 20 * BP : 147/87 Results Chemistry from 01/03/2016 1:17 PMTROPONIN-I <0.017 NG/ML (0.000-0.056 NG/ML) Chemistry from 01/03/2016 3:36 AMTROPONIN-I <0.017 NG/ML (0.000-0.056 NG/ML) Chemistry from 01/02/2016 9:34 PMTROPONIN-I <0.017 NG/ML (0.000-0.056 NG/ML) Chemistry from 01/02/2016 5:34 PMSODIUM 139 MMOL/L (136-145 MMOL/L) POTASSIUM 4.4 MMOL/L (3.5-5.1 MMOL/L) CHLORIDE 103 MMOL/L (98-107 MMOL/L) TCO2 30.7 MMOL/L (21.0-32.0 MMOL/L) *ANION GAP 5.3 MMOL/L L (8.0-16.0 MMOL/L) BUN 15 MG/DL (7-18 MG/DL) CREATININE 1.04 MG/DL (0.70-1.30 MG/DL) *BUN/CREATININE RATIO 14.4 (9.1-17.0 ) GLUCOSE 86 MG/DL (65-99 MG/DL) CALCIUM 8.9 MG/DL (8.5-10.1 MG/DL) TROPONIN-I <0.017 NG/ML (0.000-0.056 NG/ML) TSH 4.547 UIU/ML (0.340-4.820 UIU/ML) Hematology from 01/03/2016 3:36 AMWBC 7.4 X10e3/UL (3.6-11.2 X10e3/UL) RBC 4.69 X10e6/UL (4.06-5.63 X10e6/UL) HEMOGLOBIN 13.7 G/DL (12.5-16.3 G/DL) HEMATOCRIT 41.8 % (36.7-47.1 %) *MCV 89.1 FL (80.0-100.0 FL) *MCH 29.2 PG (27.0-33.0 PG) *MCHC 32.8 G/DL (32.0-36.0 G/DL) *RDW 14.3 % (12.3-17.0 %) *RDWSD 44.2 (37.1-47.8 ) PLATELET 247 X10e3/UL (159-386 X10e3/UL) *MPV 8.0 FL (7.4-10.4 FL) AUTOMATED DIFF PERFORMED SEGS 56.1 % *LYMPHOCYTES 33.8 % *MONOCYTES 7.9 % *EOSINOPHILS 1.8 % *BASOPHILS 0.4 % *ABSOLUTE NEUTROPHILS 4.10 X10e3/UL (1.80-7.80 X10e3/UL) *ABSOLUTE LYMPHOCYTES 2.50 X10e3/UL (1.00-3.00 X10e3/UL) *ABSOLUTE MONOCYTES 0.60 X10e3/UL (0.30-1.00 X10e3/UL) *ABSOLUTE EOSINOPHILS 0.10 X10e3/UL (0.00-0.50 X10e3/UL) *ABSOLUTE BASOPHILS 0.00 X10e3/UL (0.00-0.20 X10e3/UL) Coagulation from 01/03/2016 3:36 AM*PROTHROMBIN TIME 51.6 SECONDS H (9.4-11.5 SECONDS) *INR 4.5 HH (0.9-1.1 ) Problems Encounter Diagnosis * Chest Pain Status:Active. * Coronary Arteriosclerosis Status:Active. * Fall Risk Status:Active. * Hypertensive Disorder Status:Active. * Mobility Impairment Status:Active. * Paroxysmal Atrial Fibrillation Status:Active. Additional Problems * Acute Pain Comment:Problem resolved by [facility] Workflow upon Discharge, Status :Resolved. * Acute Pain Comment:Problem resolved by [facility] Workflow upon Discharge, Status :Resolved. * Acute Pain Comment:Problem resolved by [facility] Workflow upon Discharge, Status :Resolved. * Atrial Fibrillation Comment:Problem resolved by [facility] Workflow upon Discharge, Status:Resolved. * Headache Comment:Problem resolved by [facility] Workflow [...] Status:Resolved. Encounters Encounter Diagnosis * Chest Pain Status:Active. * Coronary Arteriosclerosis Status:Active. * Fall Risk Status:Active. * Hypertensive Disorder Status:Active. * Mobility Impairment Status:Active. * Paroxysmal Atrial Fibrillation Status:Active. Plan of Care Follow-up Appointments from 01/03/2016 3:07 PM:* #1 Office appointment: : Dr. White * #1 Date/Time : 01/04/2016 2:00 PM * Address # 1 : [facility] [place]- or * #2 Office appointment: : INR at lab of your choice * #2 Date/Time : 01/04/2016 7:00 AM Treatment Plan from 01/03/2016 8:24 AM:* Care Management Note : Patient was admitted as observation d/t chest pain and A Fib. Patient was c/o nausea, vomiting, lightheadedness, and sweats. EMS gave 3 NTG and Morphine x1. Patient was found to be in A Fib with RVR in the 150's EMS treated with a vagal maneuver. Patient was placed on tele, cardio consulted, and symptoms being monitoring. Work up is in progress, and CM will continue to follow. Procedures * Completed Procedure Code: 37.22 Procedure Name: not valued, on 02/11/2015 12: 00 AM * Completed Procedure Code: 88.53 Procedure Name: not valued, on 02/11/2015 12: 00 AM * Completed Procedure Code: 88.56 Procedure Name: not valued, on 02/11/2015 12: 00 AM Immunizations No immunizations administered or ordered. Hospital Course Hospital Discharge Instructions How to care for yourself at home from 01/03/2016 3:07 PM:* Discharge Activity : Activity as tolerated * Discharge Diet : As before hospitalization * Call your doctor if: : Fever over 101 F or severe chills,Chest pain or other unexplained symptoms,Tingling or numbness develops,A sudden increase or decrease in weight,You have persistent or worsening symptoms,If you have Heart Failure and you gain 3 pounds within 1 week or your symptoms worsen. (Weigh at home tomorrow morning) * Specific Discharge Teaching Instructions provided: : Yes * Specific Discharge Teaching Instructions Reviewed: : Coumadin Teaching * Discharge on Warfarin : Yes * Appointment for INR : 01/04/2016 Allergies, Adverse Reactions, Alerts * Zofran (as hydrochloride) causes "throat feels swollen". Onset Acute. * codeine causes Moderate Nausea/Vomiting. * Darvon causes unspecified. * No Latex Allergy. * No IV Contrast Allergy. * No Known Food Allergies. Medication It is the responsibility of the patient or patient volunteer patient representative to confirm the list of medications with either the patient's personal care provider or the patient's follow-up care provider to ensure the patient has an appropriate list of medications to take at home. Discharge medications Continued medications* allopurinol 300 mg Tablet, Ordered By: JILLIAN TO, SEED CUTTER Directions: 1 tablet oral daily * flecainide 50 mg Tablet, Ordered By: JILLIAN TO, SEED CUTTER Directions: 1 tablet oral twice a day * indomethacin 50 mg Capsule, Ordered By: JILLIAN TO, SEED CUTTER Directions: 1 capsule oral twice a day PRN pain * levothyroxine (Synthroid) 50 mcg Tablet, Ordered By: JILLIAN TO, SEED CUTTER Directions: 1 tablet oral daily every morning * LORazepam (Ativan) 0.5 mg Tablet, Ordered By: JILLIAN TO, SEED CUTTER Directions: 1 tablet oral daily PRN anxiety * metoprolol tartrate 50 mg Tablet, Ordered By: JILLIAN TO SEED CUTTER Directions: 1 tablet oral twice a day every morning and at bedtime Additional Instructions: Dr PRAKASH Caban's office is resp for refills * pantoprazole (ProTONIX) 40 mg tablet,delayed release (DR/EC), Ordered By: JILLIAN TO APRN Directions: 1 tablet oral daily before breakfast * pravastatin 40 mg Tablet, Ordered By: JILLIAN TO SEED CUTTER Directions: 1 tablet oral daily at bedtime * sertraline (Zoloft) 100 mg Tablet, Ordered By: JILLIAN TO, SEED CUTTER Directions: 1 tablet oral daily every evening * temazepam 30 mg Capsule, Ordered By: JILLIAN TO, SEED CUTTER Directions: 1 capsule oral daily at bedtime * warfarin 4 mg Tablet, Ordered By: JILLIAN TO, SEED CUTTER Directions: 1 tablet oral daily Additional Instructions: takes 4 followed by 8 mg for 3 days, then 4 mg for one day followed by 8 mg for 3 days Stopped medications* None
--- OUTSIDE RECORDS SUMMARY | 2017-03-15 16:54 | XMS REPORT ---
Author Author Dixie French [facility] Address [address] [place] [address] Care Team Providers Care Towerman Name Role Phone Dixie French Unavailable [phone] PROBLEMS Type Condition ICD9-CM Code [id number] Code Onset Dates Condition Status SNOMED Code Assessment Grief F43.20 Nov, Active 578979876 Assessment Anxiety as acute reaction to exceptional stress F41.1 Nov, Active 89871493 Assessment Major depressive disorder with current active episode F32.9 Nov, Active 50427473 Problem Anxiety 300.00 Active 89163001 Problem Hypothyroidism E03.9 Active 62148887 Problem Hypothyroidism 244.9 Active 98540666 Problem Panic attacks F41.0 Active 28702221 Problem Hyperlipidemia 272.4 Active 49127376 Problem Depression F32.9 Active 518364662 Problem Atrial fibrillation with RVR I48.91 Active 22728370 Problem Chronic anticoagulation Z79.01 Active 113150913 Problem Anxiety about health F41.8 Active 950002486 Problem Insomnia G47.00 Active 964182618 Problem Coronary artery disease 414.00 Active 91413971 Problem Gout 274.9 Active 52028832 Problem Essential hypertension 401.9 Active 26913300 Problem Knee pain, left M25.562 Active 258531273 Problem Coronary artery disease I25.10 Active 49803241 Problem Gout M10.9 Active 39231830 Problem 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 Active 204507594334248 Problem Acute gout 274.01 Active 64746106 Problem Atrial fibrillation 427.31 Active 04680590 Problem Atrial fibrillation with RVR 427.31 Active 25724562 Problem Cellulitis, face 682.0 Active 161494129 Problem Depression 311 Active 226367247 Problem Essential hypertension I10 Active 22037744 Problem Seborrheic dermatitis 690.10 Active 04728011 Problem Chronic anticoagulation V58.61 Active 049663355 ALLERGIES Unknown Allergies SOCIAL HISTORY No smoking Hx information available PLAN OF CARE VITAL SIGNS MEDICATIONS Medication Instructions Dosage Frequency Start Date End Date Duration Status Xarelto 20 MG Orally Once a day 1 tablet with food 24h 14 Aug, 2016 30 day(s) Active BuPROPion HCl (SR) 150 MG Orally Twice a day 1 tablet 12h Oct, 30 day(s) Active Zolpidem Tartrate 5 MG Orally at bedtime 1-2 tablets as needed Jun, 15 days Active Metoprolol Tartrate 25 MG Orally Twice a day 1 tablet 12h Jun, 90 days Active Omeprazole 20 MG Orally Once a day 1 capsule 24h 90 Active Pravastatin Sodium 40 MG Orally Once a day 1 tablet 24h 18 Apr, 2015 90 days Active Percocet 10-325 MG Orally every 6 hrs 1 tablet as needed 6h 04 Feb, 2016 15 days Active Physical Therapy eval and treat as directed March, Active Flecainide Acetate 50 MG Orally every 12 hrs 1 tablet 12h 90 Active Lorazepam 1 Orally twice a day 1 tablet 12h 15 days Active Allopurinol 300 MG Orally Once a day 1 tablet 24h 16 May, 2017 90 days Active Levothyroxine Sodium 50 MCG Orally Once a day 1 tablet 24h 30 Active RESULTS No Results PROCEDURES Procedure Date Ordered Related Diagnosis Body Site Behavior Re-Assessment Nov 08, 2016 IMMUNIZATIONS No Known Immunizations
--- OUTSIDE RECORDS SUMMARY | 2017-03-15 16:54 | XMS REPORT ---
Author Author GENERATED, SYSTEM Organization Unknown Address Unknown Phone Unavailable Care Team Providers Care Junior Loan Processor Name Role Phone MD CORINNE, JOVAN PP [phone] Reason For Visit Chief Complaint ATRIAL FLUTTER WITH CHEST PAIN Social History Functional Status Vital Signs Results [...]
--- OUTSIDE RECORDS SUMMARY | 2017-03-15 16:55 | XMS REPORT ---
Author Author Stuart Baltazar Organization [facility] Address [address] [place], [place] [id number] Care Team Providers Care Grip Name Role Phone Giovanny Stuart Unavailable [phone] PROBLEMS Type Condition ICD9-CM Code [id number] Code Onset Dates Condition Status SNOMED Code Problem Anxiety 300.00 Active 40026840 Problem Hypothyroidism 244.9 Active 12107395 Problem Panic attacks F41.0 Active 27541301 Problem Hyperlipidemia 272.4 Active 74555088 Problem Depression F32.9 Active 308713280 Problem Essential hypertension 401.9 Active 43071397 Problem Chronic anticoagulation Z79.01 Active 155770514 Problem Coronary artery disease I25.10 Active 56008157 Problem Atrial fibrillation with RVR I48.91 Active 59747837 Problem Chronic pain G89.29 Active 14933352 Problem Anxiety about health F41.8 Active 362846252 Problem Atrial fibrillation with RVR 427.31 Active 66166958 Problem Coronary artery disease 414.00 Active 34916725 Problem Gout 274.9 Active 32497538 Problem 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 Active 145823775243126 Problem Knee pain, left M25.562 Active 091905440 Problem Insomnia G47.00 Active 708576225 Problem Gout M10.9 Active 04624922 Problem Atrial fibrillation 427.31 Active 86653770 Problem Seborrheic dermatitis 690.10 Active 86420469 Problem Cellulitis, face 682.0 Active 621954829 Problem Acute gout 274.01 Active 25241754 Problem Essential hypertension I10 Active 23319738 Problem Hypothyroidism E03.9 Active 02673370 Problem Chronic anticoagulation V58.61 Active 973936535 Problem Depression 311 Active 957162890 ALLERGIES Unknown Allergies SOCIAL HISTORY No smoking Hx information available PLAN OF CARE VITAL SIGNS MEDICATIONS Medication Instructions Dosage Frequency Start Date End Date Duration Status Percocet 10-325 MG Orally every 6 hrs 1 tablet as needed 6h Feb, 15 days Active RESULTS No Results PROCEDURES No Known procedures IMMUNIZATIONS No Known Immunizations
--- OUTSIDE RECORDS SUMMARY | 2017-03-15 16:55 | XMS REPORT ---
Author Author GENERATED, SYSTEM Organization Unknown Address Unknown Phone Unavailable Care Team Providers Care Marine Machinist Name Role Phone UNASSIGNED DOCTOR , DOCTOR PP [phone] Reason For Visit Chief Complaint CHEST PAIN/WEAKNESS Social History Functional Status Vital Signs Results Chemistry from 02/23/2015 6:55 PMSODIUM 136 MMOL/L (136-145 MMOL/L) POTASSIUM 3.8 MMOL/L (3.5-5.1 MMOL/L) CHLORIDE 99 MMOL/L (98-107 MMOL/L) TCO2 27.2 MMOL/L (21.0-32.0 MMOL/L) ANION GAP 9.8 MMOL/L (8.0-16.0 MMOL/L) BUN 19 MG/DL H (7-18 MG/DL) CREATININE 1.16 MG/DL H (0.63-1.13 MG/DL) BUN/CREATININE RATIO 16.4 (9.1-17.0 ) GLUCOSE 103 MG/DL H (65-99 MG/DL) GFR EST NON AFR [place] [facility]AN 72 ML/MIN GFRA EST AFR AMER 84 ML/MIN CALCIUM 9.2 MG/DL (8.5-10.1 MG/DL) MAGNESIUM 1.9 MG/DL (1.8-2.4 MG/DL) TROPONIN-I <0.04 (SEE BELOW ) TSH 3.35 UIU/ML (0.34-4.82 UIU/ML) Hematology from 02/23/2015 6:55 PMWBC 11.1 X10e3/UL (3.6-11.2 X10e3/UL) RBC 4.69 X10e6/UL (4.06-5.63 X10e6/UL) HEMOGLOBIN 14.3 G/DL (12.5-16.3 G/DL) HEMATOCRIT 42.5 % (36.7-47.1 %) MCV 90.6 FL (80.0-100.0 FL) MCH 30.6 PG (27.0-33.0 PG) MCHC 33.7 G/DL (32.0-36.0 G/DL) RDW 13.9 % (12.3-17.0 %) RDWSD 43.3 (37.1-47.8 ) PLATELET 286 X10e3/UL (159-386 X10e3/UL) MPV 8.1 FL (7.4-10.4 FL) AUTOMATED DIFF PERFORMED SEGS 63.8 % LYMPHOCYTES 29.0 % MONOCYTES 6.3 % EOSINOPHILS 0.7 % BASOPHILS 0.2 % ABSOLUTE NEUTROPHILS 7.10 X10e3/UL (1.80-7.80 X10e3/UL) ABSOLUTE LYMPHOCYTES 3.20 X10e3/UL H (1.00-3.00 X10e3/UL) ABSOLUTE MONOCYTES 0.70 X10e3/UL (0.30-1.00 X10e3/UL) ABSOLUTE EOSINOPHILS 0.10 X10e3/UL (0.00-0.50 X10e3/UL) ABSOLUTE BASOPHILS 0.00 X10e3/UL (0.00-0.20 X10e3/UL) Coagulation from 02/23/2015 6:55 PMPROTHROMBIN TIME 10.0 SECONDS (9.4-11.5 SECONDS) INR 1.0 (0.9-1.1 ) PARTIAL THROMBOPLASTIN TIME 22.4 SECONDS (21.0-30.0 SECONDS) Problems Encounter Diagnosis No relevant problems exist. Additional Problems * Chest Pain Comment:Problem resolved by So[facility] [...] relevant problems exist. Plan of Care Procedures No relevant procedures performed. Immunizations No [...]
--- OUTSIDE RECORDS SUMMARY | 2017-03-15 16:55 | XMS REPORT ---
Author Author Stuart Baltazar Organization [facility] Address [address] [place], [place] [address] Care Team Providers Care Quality Nurse Name Role Phone Stuart Baltazar Unavailable [phone] PROBLEMS Type Condition ICD9-CM Code [id number] Code Onset Dates Condition Status SNOMED Code Problem Anxiety 300.00 Active 57832264 Problem Hypothyroidism E03.9 Active 09941270 Problem Hypothyroidism 244.9 Active 80769695 Problem Panic attacks F41.0 Active 21778603 Problem Hyperlipidemia 272.4 Active 65844252 Problem Depression F32.9 Active 015342397 Problem Atrial fibrillation with RVR I48.91 Active 01388299 Problem Chronic anticoagulation Z79.01 Active 439746534 Problem Anxiety about health F41.8 Active 429846034 Problem Insomnia G47.00 Active 201755416 Problem Coronary artery disease 414.00 Active 84025217 Problem Gout 274.9 Active 06398127 Problem Essential hypertension 401.9 Active 92790504 Problem Knee pain, left M25.562 Active 754883548 Problem Coronary artery disease I25.10 Active 78545259 Problem Gout M10.9 Active 68971900 Problem 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 Active 401607722082518 Problem Acute gout 274.01 Active 01490987 Problem Atrial fibrillation 427.31 Active 53827431 Problem Atrial fibrillation with RVR 427.31 Active 43965131 Problem Cellulitis, face 682.0 Active 711538289 Problem Depression 311 Active 611497461 Problem Essential hypertension I10 Active 76524720 Problem Seborrheic dermatitis 690.10 Active 20776140 Problem Chronic anticoagulation V58.61 Active 048051928 ALLERGIES Unknown Allergies SOCIAL HISTORY No smoking Hx information available PLAN OF CARE VITAL SIGNS MEDICATIONS Unknown Medications RESULTS No Results PROCEDURES No Known procedures IMMUNIZATIONS No Known Immunizations
--- OUTSIDE RECORDS SUMMARY | 2017-03-15 16:55 | XMS REPORT ---
Author Author Stuart Baltazar Organization [facility] Address [address] [place], [place] [address] Care Team Providers Care Industrial Seamstress Name Role Phone Giovanny Stuart Unavailable [phone] PROBLEMS Type Condition ICD9-CM Code ATV38-ZM Code Onset Dates Condition Status SNOMED Code Assessment Essential hypertension I10 Oct, Active 35123374 Problem Anxiety 300.00 Active 49087885 Problem Hypothyroidism E03.9 Active 92777935 Problem Hypothyroidism 244.9 Active 35759829 Problem Panic attacks F41.0 Active 34063149 Problem Hyperlipidemia 272.4 Active 17735731 Problem Depression F32.9 Active 609222534 Problem Atrial fibrillation with RVR I48.91 Active 00184333 Problem Chronic anticoagulation Z79.01 Active 590528979 Problem Anxiety about health F41.8 Active 440670212 Problem Insomnia G47.00 Active 990263522 Problem Coronary artery disease 414.00 Active 47572213 Problem Gout 274.9 Active 10529899 Problem Essential hypertension 401.9 Active 67311532 Problem Knee pain, left M25.562 Active 091696521 Problem Coronary artery disease I25.10 Active 16703547 Problem Gout M10.9 Active 07422249 Problem 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 Active 926535437437272 Problem Acute gout 274.01 Active 14220110 Problem Atrial fibrillation 427.31 Active 63639598 Problem Atrial fibrillation with RVR 427.31 Active 58292359 Problem Cellulitis, face 682.0 Active 353743083 Problem Depression 311 Active 575610596 Problem Essential hypertension I10 Active 16358558 Problem Seborrheic dermatitis 690.10 Active 64606995 Problem Chronic anticoagulation V58.61 Active 894990861 ALLERGIES Substance Reaction Event Type Date Status Darvon breathing difficulty Drug Allergy Oct, Active Codeine Phosphate stomach upset Drug Allergy Oct, Active SOCIAL HISTORY No smoking Hx information available PLAN OF CARE VITAL SIGNS Height 5 ft 10 in in 2016-10-17 Weight 304.8 lbs 2016-10-17 BMI 43.73 kg/m2 2016-10-17 Temperature 97.5 degrees Fahrenheit 2016-10-17 Heart Rate 70 /min 2016-10-17 Respiratory Rate 18 /min 2016-10-17 Blood pressure systolic 120 mm Hg 2016-10-17 Blood pressure diastolic 80 mm Hg 2016-10-17 MEDICATIONS Medication Instructions Dosage Frequency Start Date End Date Duration Status BuPROPion HCl (SR) 150 MG Orally Twice a day 1 tablet 12h Oct, 30 day(s) Active Levothyroxine Sodium 50 MCG Orally Once a day 1 tablet 24h 30 Active Allopurinol 300 MG Orally Once a day 1 tablet 24h 16 May, 2017 90 days Active Lorazepam 1 Orally twice a day 1 tablet 12h 15 days Active Metoprolol Tartrate 25 MG Orally Twice a day 1 tablet 12h Jun, 90 days Active Percocet 10-325 MG Orally every 6 hrs 1 tablet as needed 6h 04 Feb, 2016 15 days Active Flecainide Acetate 50 MG Orally every 12 hrs 1 tablet 12h 90 Active Pravastatin Sodium 40 MG Orally Once a day 1 tablet 24h 18 Apr, 2015 90 days Active Omeprazole 20 MG Orally Once a day 1 capsule 24h 90 Active Physical Therapy eval and treat as directed March, Active Zolpidem Tartrate 5 MG Orally at bedtime 1-2 tablets as needed Jun, 15 days Active Xarelto 20 MG Orally Once a day 1 tablet with food 24h Aug, 30 day(s) Active RESULTS No Results PROCEDURES Procedure Date Ordered Related Diagnosis Body Site OFFICE VISIT EST PATIENT LEVEL 3 Oct 17, 2016 IMMUNIZATIONS No Known Immunizations
--- OUTSIDE RECORDS SUMMARY | 2017-03-15 16:55 | XMS REPORT ---
Author Author GENERATED, SYSTEM Organization Unknown Address Unknown Phone Unavailable Care Team Providers Care Deportation Examiner Name Role Phone UNASSIGNED DOCTOR , DOCTOR PP [phone] Reason For Visit Chief Complaint CHEST PAIN Social History Functional Status Vital Signs Results Chemistry from 03/23/2015 7:35 AMSODIUM 137 MMOL/L (136-145 MMOL/L) POTASSIUM 4.5 MMOL/L (3.5-5.1 MMOL/L) CHLORIDE 98 MMOL/L (98-107 MMOL/L) TCO2 30.7 MMOL/L (21.0-32.0 MMOL/L) ANION GAP 8.3 MMOL/L (8.0-16.0 MMOL/L) BUN 19 MG/DL H (7-18 MG/DL) CREATININE 1.12 MG/DL (0.63-1.13 MG/DL) BUN/CREATININE RATIO 17.0 (9.1-17.0 ) GLUCOSE 107 MG/DL H (65-99 MG/DL) CALCIUM 9.1 MG/DL (8.5-10.1 MG/DL) MAGNESIUM 1.7 MG/DL L (1.8-2.4 MG/DL) TROPONIN-I <0.04 (SEE BELOW ) Hematology from 03/23/2015 7:35 AMWBC 8.2 X10e3/UL (3.6-11.2 X10e3/UL) RBC 4.27 X10e6/UL (4.06-5.63 X10e6/UL) HEMOGLOBIN 13.1 G/DL (12.5-16.3 G/DL) HEMATOCRIT 37.9 % (36.7-47.1 %) MCV 88.6 FL (80.0-100.0 FL) MCH 30.7 PG (27.0-33.0 PG) MCHC 34.6 G/DL (32.0-36.0 G/DL) RDW 12.7 % (12.3-17.0 %) PLATELET 274 X10e3/UL (159-386 X10e3/UL) MPV 8.1 FL (7.4-10.4 FL) AUTOMATED DIFF PERFORMED SEGS 57.9 % LYMPHOCYTES 32.0 % MONOCYTES 7.3 % EOSINOPHILS 1.3 % BASOPHILS 1.5 % ABSOLUTE NEUTROPHILS 4.80 X10e3/UL (1.80-7.80 X10e3/UL) ABSOLUTE LYMPHOCYTES 2.60 X10e3/UL (1.00-3.00 X10e3/UL) ABSOLUTE MONOCYTES 0.60 X10e3/UL (0.30-1.00 X10e3/UL) ABSOLUTE EOSINOPHILS 0.10 X10e3/UL (0.00-0.50 X10e3/UL) ABSOLUTE BASOPHILS 0.10 X10e3/UL (0.00-0.20 X10e3/UL) Coagulation from 03/23/2015 7:35 AMPROTHROMBIN TIME 10.4 SECONDS (9.4-11.5 SECONDS) INR 1.0 (0.9-1.1 ) PARTIAL THROMBOPLASTIN TIME 26.7 SECONDS (23.0-31.0 SECONDS) Problems Encounter Diagnosis No relevant problems [...]
--- OUTSIDE RECORDS SUMMARY | 2017-03-15 16:55 | XMS REPORT ---
Author Author GENERATED, SYSTEM Organization Unknown Address Unknown Phone Unavailable Care Team Providers Care Blow Molding Machine Operator Name Role Phone MD CORINNE, JOVAN PP [phone] Reason For Visit Chief Complaint 786.50, CHEST PAIN Social History Functional Status Vital [...]
--- OUTSIDE RECORDS SUMMARY | 2017-03-15 16:55 | XMS REPORT ---
Author Author GENERATED, SYSTEM Organization Unknown Address Unknown Phone Unavailable Care Team Providers Care Insurance Sales Representative Name Role Phone UNASSIGNED DOCTOR MD TEZ DOCTOR PP [phone] Reason For Visit Reason for Visit from 08/26/2014 8:12 PM:* Pt Stated Reason for Adm : Chest Pain Chief Complaint CHEST PAIN Social History Social History from 08/27/2014 3:53 PM:* Tobacco Use? : Former Smoker Social History from 08/26/2014 8:12 PM:* Tobacco Use? : Former Smoker Functional Status Functional Status from 08/27/2014 7:37 AM:* LOC : Alert * Oriented To : Person,Place,Time,Event * Weight Bearing Status : Full * Assist Level : Partial * # Assists : 1 Functional Status from 08/26/2014 8:12 PM:* LOC : Alert * Oriented To : Person,Place,Time * Weight Bearing Status : Full * Assist Level : Partial * # Assists : 1 Vital Signs Hospital Vital Signs from 08/27/2014 2:40 PM:* Height : 5/11 ft,in * Temperature : 96.2 F * Pulse : 63 * Respirations : 18 * BP : 129/75 Hospital Vital Signs from 08/27/2014 11:56 AM:* Height : 5/11 ft,in * Temperature : 96.5 F * Pulse : 62 * Respirations : 18 * BP : 119/73 Hospital Vital Signs from 08/27/2014 10:21 AM:* Height : 5/11 ft,in Hospital Vital Signs from 08/27/2014 7:42 AM:* Height : 5/11 ft,in * Temperature : 96.0 F * Pulse : 63 * Respirations : 18 * BP : 105/59 Hospital Vital Signs from 08/27/2014 7:37 AM:* Heart Rate : 65 Hospital Vital Signs from 08/27/2014 3:24 AM:* Height : 5/11 ft,in * Temperature : 97.2 F * Pulse : 71 * Respirations : 20 * BP : 118/71 Hospital Vital Signs from 08/26/2014 11:19 PM:* Height : 5/11 ft,in * Pulse : 84 * BP : 118/72 Hospital Vital Signs from 08/26/2014 10:50 PM:* Height : 5/11 ft,in * Temperature : 97.4 F * Pulse : 80 * Respirations : 22 * BP : 132/80 Hospital Vital Signs from 08/26/2014 10:07 PM:* Height : 5/11 ft,in * Temperature : 97.8 F * Pulse : 85 * Respirations : 20 * BP : 136/89 Hospital Vital Signs from 08/26/2014 8:25 PM:* Weight : 136.1/ kg * Height : 5/11 ft,in * Temperature : 97.6 F * Pulse : 100 * Respirations : 20 * BP : 122/69 Hospital Vital Signs from 08/26/2014 8:12 PM:* Weight : 136.1/ kg * Height : 5/11 ft,in Results Chemistry from 08/27/2014 8:32 AMTROPONIN-I <0.04 (SEE BELOW ) Chemistry from 08/27/2014 2:51 AMTROPONIN-I <0.04 (SEE BELOW ) CHOLESTEROL 248 MG/DL H (50-199 MG/DL) TRIGLYCERIDES 610 MG/DL H (0-149 MG/DL) HDL CHOLESTEROL 39 MG/DL L (40-60 MG/DL) LDL (DIRECT) CHOLESTEROL 149 MG/DL H (0-99 MG/DL) Echocardiology from 08/27/2014 12:00 AMEchocardiogram See also the report from this date Nuclear Medicine from 08/26/2014 8:37 PMMYOCARDIAL PERFUSION PHARMACOLOGICAL DATE OF EXAM: Aug 27 2014 10:38AM Proc: [id number] - MYOCARDIAL PERF PHARMACOLOGICAL CPT Code(s): 84489-; ; ; INDICATION / CLINICAL HISTORY: Chest Pain TECHNIQUE: The patient received 10.5 mCi of Tc 99m Myoview and SPECT imaging of the heart was performed. Non-exercise stress was then performed with 0.4 mg of Lexiscan intravenously. The patient was reinjected with 31.9 mCi of Tc 99m Myoview and repeat gated SPECT imaging of the heart was performed. The left ventricular ejection fraction was calculated. FINDINGS: No fixed or reversible perfusion abnormalities are identified. No gross wall motion abnormalities are seen. The left ventricular ejection fraction is mildly decreased and measures 50%. IMPRESSION: 1. No scintigraphic evidence of stress-induced ischemia. 2. Mildly decreased left ventricular ejection fraction of 50%. Problems Encounter Diagnosis * Chest Pain Status:Active. * History of Hypertension Status:Active. * History of Myocardial Infarction Status:Active. * History of TIA Status:Active. * Hx CAD w/ Stent Placement Status:Active. * Hypercholesterolemia Status:Active. * Hyperlipidemia Status:Active. * Hypothyroidism Status:Active. * Tobacco Dependence in Remission Status:Active. Additional Problems * Headache Comment:Problem resolved by [...] Encounter Diagnosis * Chest Pain Status:Active. * History of Hypertension Status:Active. * History of Myocardial Infarction Status:Active. * History of TIA Status:Active. * Hx CAD w/ Stent Placement Status:Active. * Hypercholesterolemia Status:Active. * Hyperlipidemia Status:Active. * Hypothyroidism Status:Active. * Tobacco Dependence in Remission Status:Active. Plan of Care Follow-up Appointments from 08/27/2014 3:53 PM:* #1 Office appointment: : Follow up with your primary care provider in 7-10 days Treatment Plan from 08/27/2014 9:43 AM:* Care Management Note : Admitted appropriately as outpatient observation with chest pain. EKG and Troponins X 3 are negative. Will follow for inpatient criteria. Procedures No relevant procedures performed. Immunizations No immunizations administered or ordered. Hospital Course Hospital Discharge Instructions How to care for yourself at home from 08/27/2014 3:53 PM:* Discharge Activity : Activity as tolerated * Discharge Diet : Modification as given by physician * Discharge Diet: : Low Fat, Low Cholesterol * Call your doctor if: : Fever over 101 F or severe chills,Chest pain or other unexplained symptoms,Tingling or numbness develops,A sudden increase or decrease in weight,You have persistent or worsening symptoms * Specific Discharge Teaching Instructions provided: : No * Discharge on Warfarin : No Allergies, Adverse Reactions, Alerts * Dilaudid causes Itching. * codeine causes Moderate Nausea/Vomiting. * Darvon causes unspecified. * No Latex Allergy. * No IV Contrast Allergy. * No Known Food Allergies. Medication It is the responsibility of the patient or patient sales representative electric service to confirm the list of medications with either the patient's personal care provider or the patient's follow-up care provider to ensure the patient has an appropriate list of medications to take at home. Discharge medications New medications* metoprolol tartrate 25 mg Tablet, Ordered By: MARIJAOSE STROUD MD Directions: 0.5 tablet oral twice a day * atorvastatin 40 mg Tablet, Ordered By: MARIAJOSE STROUD MD Directions: 1 tablet oral daily at bedtime * aspirin 81 mg tablet,delayed release (DR/EC), Ordered By: MARIAJOSE STROUD MD Directions: 1 tablet oral daily Additional Instructions: PHARMACIST: TO BE STARTED TOMORROW (DO NOT CHANGE START DATE/TIME). Continued medications* levothyroxine 50 mcg Tablet, Ordered By: MARIAJOSE STROUD MD Directions: 1 tablet oral daily every evening * sertraline (Zoloft) 100 mg Tablet, Ordered By: MARIAJOSE STROUD MD Directions: 1 tablet oral daily every evening Stopped medications* None
--- OUTSIDE RECORDS SUMMARY | 2017-03-15 16:56 | XMS REPORT ---
Author Author GENERATED, SYSTEM Organization Unknown Address Unknown Phone Unavailable Care Team Providers Care Parking Garage Manager Name Role Phone UNASSIGNED DOCTOR , DOCTOR PP [phone] Reason For Visit Reason for Visit from 04/14/2015 5:47 PM:* Pt Stated Reason for Adm : chest pain Chief Complaint ACS Social History Social History from 04/14/2015 5:47 PM:* Tobacco Use? : Never Smoker Functional Status Functional Status from 04/15/2015 12:56 AM:* LOC : Alert * Oriented To : Person,Place,Time,Event * Weight Bearing Status : Full * Assist Level : Independent * # Assists : Independent Functional Status from 04/14/2015 9:00 PM:* LOC : Alert * Oriented To : Person,Place,Time,Event * Weight Bearing Status : Full * Assist Level : Independent * # Assists : Independent Functional Status from 04/14/2015 5:47 PM:* LOC : Alert * Oriented To : Person,Place,Time,Event * Weight Bearing Status : Full * Assist Level : Partial * # Assists : 1 Vital Signs Hospital Vital Signs from 04/15/2015 2:50 AM:* Height : 5/11 ft,in * Pulse : 82 * BP : 163/70 Hospital Vital Signs from 04/15/2015 12:56 AM:* Heart Rate : 88 Hospital Vital Signs from 04/15/2015 12:50 AM:* Weight : 142.0/ kg * Height : 5/11 ft,in Hospital Vital Signs from 04/14/2015 9:55 PM:* Height : 5/11 ft,in * Temperature : 97.1 F * Pulse : 79 * Respirations : 20 * BP : 127/77 Hospital Vital Signs from 04/14/2015 9:00 PM:* Heart Rate : 77 Hospital Vital Signs from 04/14/2015 7:41 PM:* Height : 5/11 ft,in * Temperature : 97.0 F * Pulse : 76 * Respirations : 18 * BP : 121/69 Hospital Vital Signs from 04/14/2015 5:47 PM:* Weight : 140.5/ kg * Height : 5/11 ft,in Hospital Vital Signs from 04/14/2015 5:25 PM:* Weight : 140.5/ kg * Height : 5/11 ft,in * Temperature : 96.9 F * Pulse : 78 * Respirations : 18 * BP : 133/73 Results Chemistry from 04/14/2015 9:50 PMTROPONIN-I <0.04 (SEE BELOW ) Problems Encounter Diagnosis * Acute Pain Comment:Problem resolved by [facility] Workflow upon Discharge, Status :Resolved. Additional Problems * Atrial Fibrillation Comment:Problem resolved by [facility] [...] by [facility] Workflow upon Discharge, Status :Resolved. Plan of Care Procedures * Completed Procedure [...] Allergy. * No Known Food Allergies. Medication Medication reconciliation has not been performed.
--- OUTSIDE RECORDS SUMMARY | 2017-03-15 16:56 | XMS REPORT ---
Author Author GENERATED, SYSTEM Organization Unknown Address Unknown Phone Unavailable Care Team Providers Care Machine Stone Polisher Name Role Phone UNASSIGNED DOCTOR , DOCTOR PP [phone] Reason For Visit Chief Complaint SOB Social History Functional Status Vital Signs Results Chemistry from 04/07/2015 3:39 AMSODIUM 138 MMOL/L (136-145 MMOL/L) POTASSIUM 4.4 MMOL/L (3.5-5.1 MMOL/L) CHLORIDE 102 MMOL/L (98-107 MMOL/L) TCO2 29.3 MMOL/L (21.0-32.0 MMOL/L) ANION GAP 6.7 MMOL/L L (8.0-16.0 MMOL/L) BUN 16 MG/DL (7-18 MG/DL) CREATININE 0.90 MG/DL (0.63-1.13 MG/DL) BUN/CREATININE RATIO 17.8 H (9.1-17.0 ) GLUCOSE 126 MG/DL H (65-99 MG/DL) GFR EST NON AFR MALIAN >90 ML/MIN GFRA EST AFR AMER >90 ML/MIN CALCIUM 9.0 MG/DL (8.5-10.1 MG/DL) BILIRUBIN TOTAL 0.22 MG/DL (0.20-1.00 MG/DL) TOTAL PROTEIN 7.2 GM/DL (6.4-8.2 GM/DL) ALBUMIN 3.4 GM/DL (3.4-5.0 GM/DL) GLOBULIN 3.8 GM/DL H (2.3-3.5 GM/DL) A/G RATIO 0.9 MG/DL L (1.5-2.2 MG/DL) ALK PHOS 65 U/L (46-116 U/L) ALT (SGPT) 29 U/L (14-59 U/L) AST (SGOT) 15 U/L (15-37 U/L) MAGNESIUM 1.8 MG/DL (1.8-2.4 MG/DL) URIC ACID 8.8 MG/DL H (3.5-7.2 MG/DL) TROPONIN-I <0.04 (SEE BELOW ) B-TYPE NATRIURETIC PROTEIN 52 PG/ML (1-100 PG/ML) TSH 7.11 UIU/ML H (0.34-4.82 UIU/ML) THYROXINE FREE 0.89 NG/DL (0.59-1.19 NG/DL) Hematology from 04/07/2015 3:39 AMWBC 9.5 X10e3/UL (3.6-11.2 X10e3/UL) RBC 4.29 X10e6/UL (4.06-5.63 X10e6/UL) HEMOGLOBIN 13.0 G/DL (12.5-16.3 G/DL) HEMATOCRIT 38.8 % (36.7-47.1 %) MCV 90.3 FL (80.0-100.0 FL) MCH 30.2 PG (27.0-33.0 PG) MCHC 33.4 G/DL (32.0-36.0 G/DL) RDW 13.6 % (12.3-17.0 %) RDWSD 42.9 (37.1-47.8 ) PLATELET 275 X10e3/UL (159-386 X10e3/UL) MPV 7.9 FL (7.4-10.4 FL) AUTOMATED DIFF PERFORMED SEGS 56.8 % LYMPHOCYTES 34.1 % MONOCYTES 6.7 % EOSINOPHILS 1.9 % BASOPHILS 0.5 % ABSOLUTE NEUTROPHILS 5.40 X10e3/UL (1.80-7.80 X10e3/UL) ABSOLUTE LYMPHOCYTES 3.30 X10e3/UL H (1.00-3.00 X10e3/UL) ABSOLUTE MONOCYTES 0.60 X10e3/UL (0.30-1.00 X10e3/UL) ABSOLUTE EOSINOPHILS 0.20 X10e3/UL (0.00-0.50 X10e3/UL) ABSOLUTE BASOPHILS 0.00 X10e3/UL (0.00-0.20 X10e3/UL) Coagulation from 04/07/2015 3:39 AMPROTHROMBIN TIME 9.8 SECONDS (9.4-11.5 SECONDS) INR 0.9 (0.9-1.1 ) PARTIAL THROMBOPLASTIN TIME 23.9 SECONDS (23.0-31.0 SECONDS) D-DIMER 0.37 MG/L FEU (0.00-0.50 MG/L FEU) DX Radiology from 04/07/2015 3:24 AMCHEST 1 VIEW (Preliminary Result)DATE OF EXAM: Apr 07 2015 3:32AM Proc: DG [id number] - CHEST 1 VIEW CPT Code(s): 22170-; ; ; INDICATION / CLINICAL HISTORY: Shortness of breath. COMPARISON: 03/23/15. FINDINGS: The cardiac silhouette is mildly enlarged. The pulmonary vasculature is within normal limits. There are no acute infiltrates or effusions. IMPRESSION: No acute cardiopulmonary disease. Problems Encounter Diagnosis No relevant problems exist. [...]
--- OUTSIDE RECORDS SUMMARY | 2017-03-15 16:56 | XMS REPORT ---
Author Author GENERATED, SYSTEM Organization Unknown Address Unknown Phone Unavailable Care Team Providers Care Assurance Officer Name Role Phone UNASSIGNED DOCTOR , DOCTOR PP [phone] Reason For Visit Reason for Visit from 02/10/2015 1:43 AM:* Pt Stated Reason for Adm : chest pain Chief Complaint AFIB, REFACTORY NEW ONSET Social History Social History from 02/11/2015 2:10 PM:* Tobacco Use? : Former Smoker Social History from 02/10/2015 1:43 AM:* Tobacco Use? : Former Smoker Functional Status Functional Status from 02/11/2015 7:49 AM:* LOC : Alert * Oriented To : Person,Place,Time,Event * Weight Bearing Status : Full * Assist Level : Dependent * # Assists : Independent Functional Status from 02/10/2015 8:05 PM:* LOC : Alert * Oriented To : Person,Place,Time,Event * Weight Bearing Status : Full * Assist Level : Partial * # Assists : 1 Functional Status from 02/10/2015 8:30 AM:* LOC : Alert * Oriented To : Person,Place,Time,Event * Weight Bearing Status : Full * Assist Level : Independent * # Assists : Independent Functional Status from 02/10/2015 1:43 AM:* LOC : Alert * Oriented To : Person,Place,Time,Event * Weight Bearing Status : Full * Assist Level : Partial * # Assists : 1 Vital Signs Hospital Vital Signs from 02/11/2015 11:00 AM:* Temp : 97.2 * Heart Rate : 78 * Resp Rate : 18 * Systolic BP (mmHg) : 119 * Diastolic BP (mmHg) : 67 * Mean BP (mmHg) : 85 * O2 Saturation (%) : 98 Hospital Vital Signs from 02/11/2015 9:30 AM:* Systolic BP (mmHg) : 131 * Diastolic BP (mmHg) : 81 * Mean BP (mmHg) : 99 Hospital Vital Signs from 02/11/2015 9:00 AM:* Systolic BP (mmHg) : 126 * Diastolic BP (mmHg) : 88 * Mean BP (mmHg) : 96 Hospital Vital Signs from 02/11/2015 8:45 AM:* Systolic BP (mmHg) : 142 * Diastolic BP (mmHg) : 115 * Mean BP (mmHg) : 120 Hospital Vital Signs from 02/11/2015 7:30 AM:* Temp : 98.1 * Heart Rate : 76 * Resp Rate : 16 * Systolic BP (mmHg) : 122 * Diastolic BP (mmHg) : 69 * Mean BP (mmHg) : 83 * O2 Saturation (%) : 96 [facility] Vital Signs from 02/11/2015 4:35 AM:* Weight : 136.4/ kg * Height : 5/11 ft,in Hospital Vital Signs from 02/10/2015 8:05 PM:* Heart Rate : 65 Hospital Vital Signs from 02/10/2015 11:30 AM:* Temp : 98.1 * Heart Rate : 69 * Resp Rate : 18 * Systolic BP (mmHg) : 157 * Diastolic BP (mmHg) : 83 * Mean BP (mmHg) : 117 * O2 Saturation (%) : 94 [facility] Vital Signs from 02/10/2015 11:15 AM:* Heart Rate : 69 * Resp Rate : 27 [facility] Vital Signs from 02/10/2015 11:00 AM:* Heart Rate : 72 * Resp Rate : 27 [facility] Vital Signs from 02/10/2015 10:45 AM:* Heart Rate : 59 * Resp Rate : 26 [facility] Vital Signs from 02/10/2015 10:30 AM:* Heart Rate : 64 * Resp Rate : 17 [facility] Vital Signs from 02/10/2015 10:15 AM:* Heart Rate : 62 * Resp Rate : 18 [facility] Vital Signs from 02/10/2015 10:00 AM:* Heart Rate : 66 * Resp Rate : 19 [facility] Vital Signs from 02/10/2015 9:45 AM:* Heart Rate : 61 * Resp Rate : 15 [facility] Vital Signs from 02/10/2015 9:30 AM:* Heart Rate : 59 * Resp Rate : 12 [facility] Vital Signs from 02/10/2015 9:15 AM:* Heart Rate : 63 * Resp Rate : 14 [facility] Vital Signs from 02/10/2015 9:00 AM:* Heart Rate : 65 * Resp Rate : 17 Hospital Vital Signs from 02/10/2015 8:45 AM:* Temp : 98.3 * Heart Rate : 61 * Resp Rate : 15 * Systolic BP (mmHg) : 149 * Diastolic BP (mmHg) : 99 * Mean BP (mmHg) : 108 * O2 Saturation (%) : 95 [facility] Vital Signs from 02/10/2015 8:00 AM:* Heart Rate : 59 * Resp Rate : 15 * Systolic BP (mmHg) : 152 * Diastolic BP (mmHg) : 95 * Mean BP (mmHg) : 102 * O2 Saturation (%) : 95 [facility] Vital Signs from 02/10/2015 7:46 AM:* Weight : 136.0/ kg * Height : 5/11 ft,in Hospital Vital Signs from 02/10/2015 6:15 AM:* Heart Rate : 60 * Resp Rate : 22 * Systolic BP (mmHg) : 125 * Diastolic BP (mmHg) : 82 * Mean BP (mmHg) : 97 * O2 Saturation (%) : 93 [facility] Vital Signs from 02/10/2015 6:00 AM:* Heart Rate : 70 * Resp Rate : 13 * O2 Saturation (%) : 94 [facility] Vital Signs from 02/10/2015 5:45 AM:* Heart Rate : 66 * Resp Rate : 16 * O2 Saturation (%) : 94 [facility] Vital Signs from 02/10/2015 5:30 AM:* Heart Rate : 70 * Resp Rate : 14 * O2 Saturation (%) : 93 [facility] Vital Signs from 02/10/2015 5:15 AM:* Heart Rate : 64 * Resp Rate : 14 * O2 Saturation (%) : 93 [facility] Vital Signs from 02/10/2015 5:00 AM:* Heart Rate : 65 * Resp Rate : 18 * Systolic BP (mmHg) : 39 * Diastolic BP (mmHg) : 21 * Mean BP (mmHg) : 27 [facility] Vital Signs from 02/10/2015 4:45 AM:* Heart Rate : 59 * Resp Rate : 18 * O2 Saturation (%) : 94 [facility] Vital Signs from 02/10/2015 4:30 AM:* Heart Rate : 67 * Resp Rate : 32 * Systolic BP (mmHg) : 107 * Diastolic BP (mmHg) : 80 * Mean BP (mmHg) : 88 * O2 Saturation (%) : 94 [facility] Vital Signs from 02/10/2015 4:15 AM:* Heart Rate : 62 * Resp Rate : 28 * O2 Saturation (%) : 94 [facility] Vital Signs from 02/10/2015 4:00 AM:* Heart Rate : 64 * Resp Rate : 16 * O2 Saturation (%) : 91 [facility] Vital Signs from 02/10/2015 3:45 AM:* Resp Rate : 16 * O2 Saturation (%) : 93 [facility] Vital Signs from 02/10/2015 3:30 AM:* Heart Rate : 64 * Resp Rate : 13 * Systolic BP (mmHg) : 111 * Diastolic BP (mmHg) : 53 * Mean BP (mmHg) : 75 * O2 Saturation (%) : 92 [facility] Vital Signs from 02/10/2015 3:15 AM:* Heart Rate : 67 * Resp Rate : 24 * O2 Saturation (%) : 91 [facility] Vital Signs from 02/10/2015 3:00 AM:* Heart Rate : 64 * Resp Rate : 24 * Systolic BP (mmHg) : 113 * Diastolic BP (mmHg) : 70 * Mean BP (mmHg) : 84 * O2 Saturation (%) : 92 [facility] Vital Signs from 02/10/2015 2:46 AM:* Pulse : 78 [facility] Vital Signs from 02/10/2015 2:45 AM:* Heart Rate : 76 * Resp Rate : 19 * O2 Saturation (%) : 94 [facility] Vital Signs from 02/10/2015 2:30 AM:* Systolic BP (mmHg) : 116 * Diastolic BP (mmHg) : 65 * Mean BP (mmHg) : 78 [facility] Vital Signs from 02/10/2015 2:15 AM:* Temp : 97.3 * Heart Rate : 80 * Resp Rate : 30 * O2 Saturation (%) : 89 Hospital Vital Signs from 02/10/2015 1:43 AM:* Weight : 136.0/ kg * Height : 5/11 ft,in Results Chemistry from 02/10/2015 11:14 AMTROPONIN-I <0.04 (SEE BELOW ) Chemistry from 02/10/2015 5:01 AMSODIUM 136 MMOL/L (136-145 MMOL/L) POTASSIUM 4.2 MMOL/L (3.5-5.1 MMOL/L) CHLORIDE 101 MMOL/L (98-107 MMOL/L) TCO2 27.2 MMOL/L (21.0-32.0 MMOL/L) ANION GAP 7.8 MMOL/L L (8.0-16.0 MMOL/L) BUN 17 MG/DL (7-18 MG/DL) CREATININE 1.09 MG/DL (0.63-1.13 MG/DL) BUN/CREATININE RATIO 15.6 (9.1-17.0 ) GLUCOSE 110 MG/DL H (65-99 MG/DL) GFR EST NON AFR THAI 78 ML/MIN GFRA EST AFR AMER >90 ML/MIN CALCIUM 8.5 MG/DL (8.5-10.1 MG/DL) EST AVG GLUCOSE 131.2 gm/dl TROPONIN-I 0.04 (SEE BELOW ) TSH 1.74 UIU/ML (0.34-4.82 UIU/ML) CHOLESTEROL 187 MG/DL (50-199 MG/DL) TRIGLYCERIDES 188 MG/DL H (0-149 MG/DL) HDL CHOLESTEROL 59 MG/DL (40-60 MG/DL) LDL (CALCULATED) CHOL 90 MG/DL (0-99 MG/DL) HEMOGLOBIN A1C 6.2 % (4.5-6.2 %) Hematology from 02/10/2015 5:01 AMWBC 10.7 X10e3/UL (3.6-11.2 X10e3/UL) RBC 4.57 X10e6/UL (4.06-5.63 X10e6/UL) HEMOGLOBIN 14.1 G/DL (12.5-16.3 G/DL) HEMATOCRIT 41.2 % (36.7-47.1 %) MCV 90.1 FL (80.0-100.0 FL) MCH 30.9 PG (27.0-33.0 PG) MCHC 34.3 G/DL (32.0-36.0 G/DL) RDW 13.7 % (12.3-17.0 %) RDWSD 43.3 (37.1-47.8 ) PLATELET 285 X10e3/UL (159-386 X10e3/UL) MPV 7.7 FL (7.4-10.4 FL) AUTOMATED DIFF PERFORMED SEGS 62.3 % LYMPHOCYTES 28.3 % MONOCYTES 8.7 % EOSINOPHILS 0.5 % BASOPHILS 0.2 % ABSOLUTE NEUTROPHILS 6.70 X10e3/UL (1.80-7.80 X10e3/UL) ABSOLUTE LYMPHOCYTES 3.00 X10e3/UL (1.00-3.00 X10e3/UL) ABSOLUTE MONOCYTES 0.90 X10e3/UL (0.30-1.00 X10e3/UL) ABSOLUTE EOSINOPHILS 0.10 X10e3/UL (0.00-0.50 X10e3/UL) ABSOLUTE BASOPHILS 0.00 X10e3/UL (0.00-0.20 X10e3/UL) Coagulation from 02/11/2015 5:54 AMPARTIAL THROMBOPLASTIN TIME 65.1 SECONDS H ( 21.0-30.0 SECONDS) Coagulation from 02/11/2015 1:04 AMPARTIAL THROMBOPLASTIN TIME 85.5 SECONDS H ( 21.0-30.0 SECONDS) Coagulation from 02/10/2015 7:13 PMPARTIAL THROMBOPLASTIN TIME 31.6 SECONDS H ( 21.0-30.0 SECONDS) Echocardiology from 02/11/2015 12:00 AMEchocardiogram See also the report from this date Problems Encounter Diagnosis * Chest Pain Comment:Problem resolved by [facility] Workflow upon Discharge, Status :Resolved. * Rapid Atrial Fibrillation Comment:Problem resolved by [...] [facility] Workflow upon Discharge, Status :Resolved. * Rapid Atrial Fibrillation Comment:Problem resolved by [facility] Workflow upon Discharge, Status:Resolved. Plan of Care Follow-up Appointments from 02/11/2015 2:10 PM:* #1 Office appointment: : * #1 Date/Time : 03/11/2015 1:00 PM * Address # 1 : [facility]: [address] [place]- [phone] or Treatment Plan from 02/11/2015 10:35 AM:* Care Management Note : Attempted to visit patient but was sleeping soundly. No family here at this time. Reviewed chart. See patient is from home with spouse and anticipate he will return home. Do not anticipate any discharge needs. SW to follow. Treatment Plan from 02/10/2015 12:54 PM:* Care Management Note : Patient admitted into the ICU due to Rapid A Fib (WF=[id number] in ER) and Chest Pain. Patient currently being treated with cardizem drip, Heparin drip, IVF, Digoxin IV x2, and cardio consult. Plan of care is expected to exceed 2 midnights at this time. Patient has no current insurance provider per facesheet in document imaging. Procedures No relevant procedures performed. Immunizations No immunizations administered or ordered. Hospital Course Hospital Discharge Instructions How to care for yourself at home from 02/11/2015 2:10 PM:* Discharge Activity : Do not engage in sports, heavy work or heavy lifting until your physician gives permission * Discharge Diet : Modification as given by physician * Discharge Diet: : Heart heathly diet, low sodium, low fat, low chol * Remove dressing in: : this evening * Call your doctor if: : Fever [...] * Specific Discharge Teaching Instructions Reviewed: : Cardiology Post Catherization Instructions * Discharge on Warfarin : No Allergies, Adverse Reactions, Alerts * Dilaudid causes Itching. * codeine causes Moderate Nausea/Vomiting. * Darvon causes unspecified. * No Latex Allergy. * No IV Contrast Allergy. * No Known Food Allergies. Medication It is the responsibility of the patient or patient veterans service representative to confirm the list of medications with either the patient's personal care provider or the patient's follow-up care provider to ensure the patient has an appropriate list of medications to take at home. Discharge medications New medications* metoprolol tartrate 25 mg Tablet, Ordered By: KAMILLE MONTGOMERY APRN Directions: 1 tablet oral twice a day Additional Instructions: Dr PRAKASH Caban's office is resp for refills * isosorbide mononitrate 30 mg Tablet Extended Release 24 hr, Ordered By: KAMILLE MONTGOMERY APRN Directions: 1 tablet oral daily Additional Instructions: Dr PRAKASH Caban's office is resp for refills * atorvastatin (Lipitor) 20 mg Tablet, Ordered By: MARIAJOSE CABAN MD Directions: 1 tablet oral daily at bedtime Continued medications* aspirin 325 mg Tablet, Ordered By: KAMILLE MONTGOMERY APRN Directions: 1 tablet oral daily every morning Additional Instructions: PHARMACIST: TO BE STARTED TOMORROW (DO NOT CHANGE START DATE/TIME). * levothyroxine (Synthroid) 50 mcg Tablet, Ordered By: MARIAJOSE CABAN MD Directions: 1 tablet oral daily every morning * sertraline (Zoloft) 50 mg Tablet, Ordered By: MARIAJOSE CABAN MD Directions: 1 tablet oral daily every evening Stopped medications* predniSONE Directions: 10 mg oral daily
--- OUTSIDE RECORDS SUMMARY | 2017-03-15 16:57 | XMS REPORT ---
Author Author GENERATED, SYSTEM Organization Unknown Address Unknown Phone Unavailable Care Team Providers Care Wire Lather Name Role Phone MD CORINNE, JOVAN [phone] Reason For Visit Reason for Visit from 12/14/2015 5:19 PM:* Pt Stated Reason for Adm : Chest Pain Chief Complaint CHEST PAINS Social History Social History from 12/16/2015 2:06 PM:* Tobacco Use? : Former Smoker Social History from 12/14/2015 5:19 PM:* Tobacco Use? : Former Smoker Functional Status Functional Status from 12/16/2015 9:55 AM:* LOC : Alert * Oriented To : Person,Place,Time,Event * Weight Bearing Status : Full * Assist Level : Partial * # Assists : 1 Functional Status from 12/15/2015 7:59 PM:* LOC : Alert * Oriented To : Person,Place,Time,Event * Weight Bearing Status : Full * Assist Level : Partial * # Assists : 1 Functional Status from 12/15/2015 8:03 AM:* LOC : Alert * Oriented To : Person,Place,Time,Event * Weight Bearing Status : Full * Assist Level : Independent * # Assists : 1 Functional Status from 12/14/2015 8:12 PM:* LOC : Alert * Oriented To : Person,Place,Time * Weight Bearing Status : Full * Assist Level : Independent * # Assists : Independent Functional Status from 12/14/2015 5:19 PM:* LOC : Alert * Oriented To : Person,Place,Time * Weight Bearing Status : Full * Assist Level : Partial * # Assists : 1 Vital Signs Hospital Vital Signs from 12/16/2015 11:05 AM:* Height : 5/10 ft,in * Temperature : 95.9 F * Pulse : 64 * Respirations : 20 * BP : 138/72 Hospital Vital Signs from 12/16/2015 9:55 AM:* Heart Rate : 62 Hospital Vital Signs from 12/16/2015 7:28 AM:* Weight : 142.3/ kg * Height : 5/10 ft,in Hospital Vital Signs from 12/16/2015 7:24 AM:* Height : 5/10 ft,in * Temperature : 95.8 F * Pulse : 61 * Respirations : 20 * BP : 131/60 Hospital Vital Signs from 12/16/2015 3:25 AM:* Height : 5/10 ft,in * Temperature : 97.0 F * Pulse : 56 * Respirations : 20 * BP : 134/69 Hospital Vital Signs from 12/16/2015 12:37 AM:* Heart Rate : 60 Hospital Vital Signs from 12/15/2015 10:06 PM:* Height : 5/10 ft,in * Temperature : 97.5 F * Pulse : 73 * Respirations : 20 * BP : 175/125 Hospital Vital Signs from 12/15/2015 9:00 PM:* Height : 5/10 ft,in * Temperature : 97.4 F * Pulse : 71 * Respirations : 20 * BP : 138/77 Hospital Vital Signs from 12/15/2015 7:59 PM:* Heart Rate : 70 Hospital Vital Signs from 12/15/2015 7:27 PM:* Height : 5/10 ft,in * Temperature : 97.8 F * Pulse : 75 * Respirations : 20 * BP : 138/74 Hospital Vital Signs from 12/15/2015 3:20 PM:* Height : 5/10 ft,in * Temperature : 96.5 F * Pulse : 68 * Respirations : 18 * BP : 120/75 Hospital Vital Signs from 12/15/2015 10:51 AM:* Height : 5/10 ft,in * Temperature : 95.4 F * Pulse : 73 * Respirations : 20 * BP : 150/72 Hospital Vital Signs from 12/15/2015 9:25 AM:* Height : 5/10 ft,in Hospital Vital Signs from 12/15/2015 8:03 AM:* Heart Rate : 83 Hospital Vital Signs from 12/15/2015 7:21 AM:* Height : 5/10 ft,in * Temperature : 96.5 F * Pulse : 76 * Respirations : 18 * BP : 142/80 Hospital Vital Signs from 12/15/2015 3:29 AM:* Weight : 145.5/ kg * Height : 5/10 ft,in * Temperature : 97.0 F * Pulse : 83 * Respirations : 20 * BP : 133/78 Hospital Vital Signs from 12/14/2015 9:34 PM:* Height : 5/10 ft,in * Temperature : 96.8 F * Pulse : 76 * Respirations : 20 * BP : 177/87 Hospital Vital Signs from 12/14/2015 7:11 PM:* Height : 5/10 ft,in * Temperature : 97.0 F * Pulse : 62 * Respirations : 20 * BP : 157/74 Hospital Vital Signs from 12/14/2015 5:19 PM:* Weight : 142.3/ kg * Height : 5/10 ft,in Hospital Vital Signs from 12/14/2015 5:06 PM:* Weight : 142.3/ kg * Height : 5/10 ft,in * Temperature : 96.2 F * Pulse : 54 * Respirations : 20 * BP : 124/64 Results Chemistry from 12/16/2015 1:17 AMSODIUM 140 MMOL/L (136-145 MMOL/L) POTASSIUM 4.6 MMOL/L (3.5-5.1 MMOL/L) CHLORIDE 105 MMOL/L (98-107 MMOL/L) TCO2 30.1 MMOL/L (21.0-32.0 MMOL/L) *ANION GAP 4.9 MMOL/L L (8.0-16.0 MMOL/L) BUN 19 MG/DL H (7-18 MG/DL) CREATININE 1.22 MG/DL (0.70-1.30 MG/DL) *BUN/CREATININE RATIO 15.6 (9.1-17.0 ) GLUCOSE 115 MG/DL H (65-99 MG/DL) *GFR EST NON AFR ETHIOPIAN 68 ML/MIN *GFRA EST AFR AMER 78 ML/MIN CALCIUM 8.5 MG/DL (8.5-10.1 MG/DL) TROPONIN-I 0.049 NG/ML (0.000-0.056 NG/ML) Chemistry from 12/15/2015 8:23 PMTROPONIN-I 0.097 NG/ML H (0.000-0.056 NG/ML) Chemistry from 12/15/2015 6:21 PMTROPONIN-I 0.128 NG/ML H (0.000-0.056 NG/ML) Chemistry from 12/15/2015 12:51 PMTROPONIN-I 0.024 NG/ML (0.000-0.056 NG/ML) Chemistry from 12/15/2015 1:03 AMSODIUM 140 MMOL/L (136-145 MMOL/L) POTASSIUM 3.9 MMOL/L (3.5-5.1 MMOL/L) CHLORIDE 104 MMOL/L (98-107 MMOL/L) TCO2 29.8 MMOL/L (21.0-32.0 MMOL/L) *ANION GAP 6.2 MMOL/L L (8.0-16.0 MMOL/L) BUN 18 MG/DL (7-18 MG/DL) CREATININE 1.10 MG/DL (0.70-1.30 MG/DL) *BUN/CREATININE RATIO 16.4 (9.1-17.0 ) GLUCOSE 121 MG/DL H (65-99 MG/DL) *GFR EST NON AFR ETHIOPIAN 77 ML/MIN *GFRA EST AFR AMER 89 ML/MIN CALCIUM 8.8 MG/DL (8.5-10.1 MG/DL) TROPONIN-I <0.017 NG/ML (0.000-0.056 NG/ML) CHOLESTEROL 176 MG/DL (50-199 MG/DL) TRIGLYCERIDES 257 MG/DL H (0-149 MG/DL) HDL CHOLESTEROL 40 MG/DL (40-60 MG/DL) *LDL (CALCULATED) CHOL 85 MG/DL (0-99 MG/DL) Chemistry from 12/14/2015 8:12 PMTROPONIN-I <0.017 NG/ML (0.000-0.056 NG/ML) Hematology from 12/16/2015 1:17 AMWBC 6.1 X10e3/UL (3.6-11.2 X10e3/UL) RBC 4.37 X10e6/UL (4.06-5.63 X10e6/UL) HEMOGLOBIN 12.7 G/DL (12.5-16.3 G/DL) HEMATOCRIT 39.2 % (36.7-47.1 %) *MCV 89.8 FL (80.0-100.0 FL) *MCH 29.1 PG (27.0-33.0 PG) *MCHC 32.4 G/DL (32.0-36.0 G/DL) *RDW 14.4 % (12.3-17.0 %) *RDWSD 45.5 (37.1-47.8 ) PLATELET 223 X10e3/UL (159-386 X10e3/UL) *MPV 8.0 FL (7.4-10.4 FL) AUTOMATED DIFF PERFORMED SEGS 58.7 % *LYMPHOCYTES 31.3 % *MONOCYTES 7.4 % *EOSINOPHILS 2.4 % *BASOPHILS 0.2 % *ABSOLUTE NEUTROPHILS 3.60 X10e3/UL (1.80-7.80 X10e3/UL) *ABSOLUTE LYMPHOCYTES 1.90 X10e3/UL (1.00-3.00 X10e3/UL) *ABSOLUTE MONOCYTES 0.50 X10e3/UL (0.30-1.00 X10e3/UL) *ABSOLUTE EOSINOPHILS 0.10 X10e3/UL (0.00-0.50 X10e3/UL) *ABSOLUTE BASOPHILS 0.00 X10e3/UL (0.00-0.20 X10e3/UL) Hematology from 12/15/2015 1:03 AMWBC 7.0 X10e3/UL (3.6-11.2 X10e3/UL) RBC 4.51 X10e6/UL (4.06-5.63 X10e6/UL) HEMOGLOBIN 13.1 G/DL (12.5-16.3 G/DL) HEMATOCRIT 40.6 % (36.7-47.1 %) *MCV 89.9 FL (80.0-100.0 FL) *MCH 29.0 PG (27.0-33.0 PG) *MCHC 32.3 G/DL (32.0-36.0 G/DL) *RDW 14.4 % (12.3-17.0 %) *RDWSD 45.5 (37.1-47.8 ) PLATELET 241 X10e3/UL (159-386 X10e3/UL) *MPV 8.0 FL (7.4-10.4 FL) AUTOMATED DIFF PERFORMED SEGS 54.6 % *LYMPHOCYTES 37.5 % *MONOCYTES 5.9 % *EOSINOPHILS 1.8 % *BASOPHILS 0.2 % *ABSOLUTE NEUTROPHILS 3.80 X10e3/UL (1.80-7.80 X10e3/UL) *ABSOLUTE LYMPHOCYTES 2.60 X10e3/UL (1.00-3.00 X10e3/UL) *ABSOLUTE MONOCYTES 0.40 X10e3/UL (0.30-1.00 X10e3/UL) *ABSOLUTE EOSINOPHILS 0.10 X10e3/UL (0.00-0.50 X10e3/UL) *ABSOLUTE BASOPHILS 0.00 X10e3/UL (0.00-0.20 X10e3/UL) Coagulation from 12/16/2015 12:45 PM*PROTHROMBIN TIME 15.7 SECONDS H (9.4-11.5 SECONDS) *INR 1.5 H (0.9-1.1 ) Coagulation from 12/15/2015 2:01 PM*PROTHROMBIN TIME 18.5 SECONDS H (9.4-11.5 SECONDS) *INR 1.7 H (0.9-1.1 ) Echocardiology from 12/15/2015 12:00 AMEchocardiogram See also the report from this date Echocardiogram See also the report from this date Stress EKG Report See also the report from this date Stress EKG from 12/15/2015 12:00 AMStress EKG Report See also the report from this date Problems Encounter Diagnosis * Acute Pain Status:Active. * Chest Pain Status:Active. * Coronary Arteriosclerosis Status:Active. * Fall Risk Status:Active. * Hypertensive Disorder Status:Active. * Mobility Impairment Status:Active. * Paroxysmal Atrial Fibrillation Status:Active. Additional Problems * Atrial Fibrillation Comment:Problem resolved [...] Status:Resolved. Encounters Encounter Diagnosis * Acute Pain Status:Active. * Chest Pain Status:Active. * Coronary Arteriosclerosis Status:Active. * Fall Risk Status:Active. * Hypertensive Disorder Status:Active. * Mobility Impairment Status:Active. * Paroxysmal Atrial Fibrillation Status:Active. Plan of Care Follow-up Appointments from 12/16/2015 2:06 PM:* #1 Office appointment: : Dr Guillaume * #1 Date/Time : 12/24/2015 2:15 PM * Address # 1 : [place] * #2 Office appointment: : [place]o bob w/ PCP in 1 to 2 weekscall to schedule * Address # 2 : [facility]: [address], [facility] Treatment Plan from 12/15/2015 1:40 PM:* Care Management Note : Attempted to visit patient. Patient asleep. Will try to see later. Treatment Plan from 12/15/2015 11:10 AM:* Care Management Note : Patient was admitted as observation d/t chest pain. Troponin's and CXR were negative. EKG shows SR. Patient placed on tele, and will have an ECHO and Dobutamine stress echo checked. Anticipate a discharge later today if work up is negative. CM will continue to follow. Procedures * [...] to care for yourself at home from 12/16/2015 2:06 PM:* Discharge Activity : Activity as tolerated,May Shower,Do not engage in sports, heavy work or heavy lifting until your physician gives permission * Discharge Diet : Modification as given by physician * Discharge Diet: : low fat, low cholesterol, low sodium * Call your doctor if: : Fever [...] : No * Discharge on Warfarin : Yes * Appointment for INR : 12-24-2015 Allergies, Adverse Reactions, Alerts * codeine causes Moderate Nausea/Vomiting. * Darvon causes unspecified. * No Latex Allergy. * No IV Contrast Allergy. * No Known Food Allergies. Medication It is the responsibility of the patient or patient medical field representative to confirm the list of medications with either the patient's personal care provider or the patient's follow-up care provider to ensure the patient has an appropriate list of medications to take at home. Discharge medications New medications* aspirin 81 mg tablet,chewable, Ordered By: CARON VILLALTA Directions: 1 tablet oral daily * pantoprazole (ProTONIX) 40 mg tablet,delayed release (/STEVAN), Ordered By: SANDRA FLEMING PA-C Directions: 1 tablet oral daily before breakfast Continued medications* allopurinol 300 mg Tablet, Ordered By: SANDRA FLEMING PA-C Directions: 1 tablet oral daily * LORazepam (Ativan) 0.5 mg Tablet, Ordered By: SANDRA FLEMING PA-C Directions: 1 tablet oral daily PRN anxiety * temazepam 30 mg Capsule, Ordered By: SANDRA FLEMING PA-C Directions: 2 capsule oral daily at bedtime * flecainide 50 mg Tablet, Ordered By: SANDRA FLEMING PA-C Directions: 1 tablet oral twice a day * metoprolol tartrate 50 mg Tablet, Ordered By: SANDRA FLEMING PA-C Directions: 1 tablet oral twice a day every morning and at bedtime Additional Instructions: Dr PRAKASH Caban's office is resp for refills * indomethacin 50 mg Capsule, Ordered By: SANDRA FLEMING PA-C Directions: 1 capsule oral twice a day PRN pain * levothyroxine (Synthroid) 50 mcg Tablet, Ordered By: SANDRA FLEMING PA-C Directions: 1 tablet oral daily every morning * pravastatin 40 mg Tablet, Ordered By: SANDRA FLEMING PA-C Directions: 1 tablet oral daily at bedtime * sertraline (Zoloft) 100 mg Tablet, Ordered By: SANDRA FLEMING PA-C Directions: 1 tablet oral daily every evening * oxyCODONE 10 mg Tablet, Ordered By: SANDRA FLEMING PA-C Directions: 1 tablet oral every four hours PRN pain Changed medications* warfarin 4 mg Tablet, Ordered By: SANDRA FLEMING PA-C Directions: 1 tablet oral daily Additional Instructions: takes 4 followed by 8 mg for 3 days, then 4 mg for one day followed by 8 mg for 3 days * LORazepam (Ativan) 0.5 mg Tablet, Ordered By: SANDRA FLEMING PA-C Directions: 1 tablet oral twice a day PRN anxiety Additional Instructions: DO NOT TAKE WITHIN 8 HOURS OF TEMAZEPAM Stopped medications* None
--- OUTSIDE RECORDS SUMMARY | 2017-03-15 16:57 | XMS REPORT ---
Author Author GENERATED, SYSTEM Organization Unknown Address Unknown Phone Unavailable Care Team Providers Care Carpet Repairer Name Role Phone MD CORINNE, [facility] [phone] Reason For Visit Chief Complaint CHEST PAIN Social History Functional Status Vital Signs Results Chemistry from 08/17/2015 8:50 PM*COCAINE NEGATIVE (NEG <150 ) *PCP NEGATIVE (NEG <25 ) *OXYCODONE NEGATIVE (NEG <100 ) *PROPOXYPHENE (NORPROPOXYPHENE) NEGATIVE (NEG <300 ) *CANNABINOIDS NEGATIVE (NEG <50 ) *BENZODIAZEINE POSITIVE A (NEG <150 ) *AMPHETAMINE NEGATIVE (NEG <500 ) *BARBITURATES NEGATIVE (NEG <200 ) *METHAMPHETAMINES NEGATIVE (NEG <500 ) *METHADONE (UR) NEGATIVE (NEG <200 ) *OPIATES (LAB) POSITIVE A (NEG <100 ) *TRICYCLICS NEGATIVE (NEG <300 ) Chemistry from 08/17/2015 6:45 PMSODIUM 137 MMOL/L (136-145 MMOL/L) POTASSIUM 3.9 MMOL/L (3.5-5.1 MMOL/L) CHLORIDE 101 MMOL/L (98-107 MMOL/L) TCO2 28.3 MMOL/L (21.0-32.0 MMOL/L) *ANION GAP 7.7 MMOL/L L (8.0-16.0 MMOL/L) BUN 13 MG/DL (7-18 MG/DL) CREATININE 1.14 MG/DL (0.70-1.30 MG/DL) *BUN/CREATININE RATIO 11.4 (9.1-17.0 ) GLUCOSE 127 MG/DL H (65-99 MG/DL) *GFR EST NON AFR NORWEGIAN 74 ML/MIN *GFRA EST AFR AMER 85 ML/MIN CALCIUM 9.0 MG/DL (8.5-10.1 MG/DL) BILIRUBIN TOTAL 0.33 MG/DL (0.20-1.00 MG/DL) TOTAL PROTEIN 7.7 GM/DL (6.4-8.2 GM/DL) ALBUMIN 3.8 GM/DL (3.4-5.0 GM/DL) *GLOBULIN 3.9 GM/DL H (2.3-3.5 GM/DL) *A/G RATIO 1.0 MG/DL L (1.5-2.2 MG/DL) ALK PHOS 73 U/L (46-116 U/L) ALT (SGPT) 33 U/L (14-59 U/L) AST (SGOT) 25 U/L (15-37 U/L) TROPONIN-I <0.04 (SEE BELOW ) B-TYPE NATRIURETIC PROTEIN 171 PG/ML H (1-100 PG/ML) Hematology from 08/17/2015 6:45 PMWBC 10.7 X10e3/UL (3.6-11.2 X10e3/UL) RBC 4.98 X10e6/UL (4.06-5.63 X10e6/UL) HEMOGLOBIN 14.2 G/DL (12.5-16.3 G/DL) HEMATOCRIT 43.5 % (36.7-47.1 %) MCV 87.5 FL (80.0-100.0 FL) MCH 28.6 PG (27.0-33.0 PG) MCHC 32.7 G/DL (32.0-36.0 G/DL) RDW 14.7 % (12.3-17.0 %) PLATELET 296 X10e3/UL (159-386 X10e3/UL) MPV 8.2 FL (7.4-10.4 FL) AUTOMATED DIFF PERFORMED SEGS 72.1 % LYMPHOCYTES 20.4 % MONOCYTES 5.2 % EOSINOPHILS 1.3 % BASOPHILS 1.0 % ABSOLUTE NEUTROPHILS 7.70 X10e3/UL (1.80-7.80 X10e3/UL) ABSOLUTE LYMPHOCYTES 2.20 X10e3/UL (1.00-3.00 X10e3/UL) ABSOLUTE MONOCYTES 0.60 X10e3/UL (0.30-1.00 X10e3/UL) ABSOLUTE EOSINOPHILS 0.10 X10e3/UL (0.00-0.50 X10e3/UL) ABSOLUTE BASOPHILS 0.10 X10e3/UL (0.00-0.20 X10e3/UL) Urinalysis from 08/17/2015 8:50 PM*URINE COLOR STRAW (STRAW/YELL/DK YELL ) *URINE APPEARANCE CLEAR (CLEAR ) URINE PH 8.0 (5.0-8.0 ) URINE SPECIFIC GRAVITY 1.015 (<=1.005->=1.030 ) *URINE GLUCOSE (LAB) NEGATIVE MG/DL (NEGATIVE MG/DL) *URINE BILIRUBIN NEGATIVE (NEGATIVE ) *URINE KETONES NEGATIVE MG/DL (NEGATIVE MG/DL) *URINE BLOOD NEGATIVE (NEGATIVE ) *URINE PROTEIN NEGATIVE MG/DL (NEGATIVE MG/DL) *URINE UROBILINOGEN 0.2 EU/DL (0.2-1.0 EU/DL) *URINE NITRITES (LAB) NEGATIVE (NEGATIVE ) *URINE LEUKOCYTES NEGATIVE (NEGATIVE ) Coagulation from 08/17/2015 6:45 PM*PROTHROMBIN TIME 18.5 SECONDS H (9.4-11.5 SECONDS) *INR 1.7 H (0.9-1.1 ) PARTIAL THROMBOPLASTIN TIME 32.9 SECONDS H (23.0-31.0 SECONDS) D-DIMER <0.19 MG/L FEU (0.00-0.50 MG/L FEU) Problems Encounter Diagnosis No relevant problems exist. [...]
--- OUTSIDE RECORDS SUMMARY | 2017-03-15 16:57 | XMS REPORT ---
Author Author GENERATED, SYSTEM Organization Unknown Address Unknown Phone Unavailable Care Team Providers Care Sales Contractor Name Role Phone MD CORINNE, JOVAN PP [phone] Reason For Visit Chief Complaint FALL, LT KNEE PAIN Social History Functional Status Vital Signs [...] [facility] Workflow upon Discharge, Status :Resolved. * Angina Comment:Problem resolved by [facility] Workflow upon Discharge, Status: Resolved. * Atrial Fibrillation Comment:Problem resolved by Soarian [...] Soarian Workflow upon Discharge, Status :Resolved. * Coronary Arteriosclerosis Comment:Problem resolved by [facility] Workflow upon Discharge, Status:Resolved. * Coronary Arteriosclerosis Comment:Problem resolved by [facility] Workflow upon Discharge, Status:Resolved. * Fall Risk Comment:Problem resolved by [facility] Workflow upon Discharge, Status: Resolved. * Fall Risk Comment:Problem resolved by So[facility] Workflow upon Discharge, Status: Resolved. * Fall Risk Comment:Problem resolved by So[facility] Workflow upon Discharge, Status: Resolved. * Fall Risk Comment:Problem resolved by Soarian [...] by [facility] Workflow upon Discharge, Status:Resolved. * Hypertensive Disorder Comment:Problem resolved by [facility] Workflow upon Discharge, Status:Resolved. * Hypertensive Disorder Comment:Problem resolved by [facility] Workflow upon Discharge, Status:Resolved. * Hypothyroidism Comment:Problem resolved by [facility] Workflow upon Discharge, Status:Resolved. * Mobility Impairment Comment:Problem resolved by [facility] Workflow upon Discharge, Status:Resolved. * Mobility Impairment Comment:Problem resolved by So[facility] Workflow upon Discharge, Status:Resolved. * Mobility Impairment Comment:Problem resolved by Soarian Workflow upon Discharge, Status:Resolved. * Palpitations Comment:Problem resolved by Soarian Workflow upon Discharge, Status:Resolved. * Paroxysmal Atrial Fibrillation Comment:Problem resolved by Soarian Workflow upon Discharge, Status:Resolved. * Paroxysmal Atrial Fibrillation Comment:Problem resolved by Soarian Workflow upon Discharge, Status:Resolved. * Rapid Atrial Fibrillation Comment:Problem resolved by Soarian Workflow upon Discharge, Status:Resolved. * Skin Integrity Impairment Risk Comment:Problem resolved by Soarian Workflow upon Discharge, Status:Resolved. * Tobacco Dependence in Remission Comment:Problem resolved by Soarian Workflow upon Discharge, Status:Resolved. Encounters Encounter Diagnosis No relevant problems exist. Plan of Care Procedures * Completed Procedure Code: 3I244N6 Procedure Name: not valued, on 02/17/2016 12 :00 AM * Completed Procedure Code: [id number] Procedure Name: not valued, on 02/17/2016 12 :00 AM * Completed Procedure Code: Q1834MM Procedure Name: not valued, on 02/17/2016 12 :00 AM * Completed Procedure Code: 37.22 Procedure Name: not valued, on 02/11/2015 12: 00 AM * Completed Procedure Code: 88.53 Procedure Name: not valued, on 02/11/2015 12: 00 AM * Completed Procedure Code: 88.56 Procedure Name: not valued, on 02/11/2015 12: 00 AM Immunizations No immunizations administered or ordered. Hospital Course Hospital Discharge Instructions Allergies, Adverse Reactions, Alerts * Zofran (as hydrochloride) causes "throat feels swollen". Onset Acute. * codeine causes Moderate Nausea/Vomiting. * Darvon causes unspecified. * Latex Allergy has not been assessed. * IV Contrast Allergy has not been assessed. * No Known Food Allergies. Medication Medication reconciliation has not been performed.
--- OUTSIDE RECORDS SUMMARY | 2017-03-15 16:58 | XMS REPORT ---
Author Author Dixie French [facility] Address [address] [place] [address] Care Team Providers Care Receiving Distribution Station Operator Name Role Phone Dixie French Unavailable [phone] PROBLEMS Type Condition ICD9-CM Code VGM35-AX Code Onset Dates Condition Status SNOMED Code Assessment Grief F43.20 Oct, Active 039578879 Assessment Anxiety as acute reaction to exceptional stress F41.1 Oct, Active 82873327 Assessment Major depressive disorder with current active episode F32.9 Oct, Active 89710716 Problem Anxiety 300.00 Active 17244295 Problem Hypothyroidism E03.9 Active 81038258 Problem Hypothyroidism 244.9 Active 13934651 Problem Panic attacks F41.0 Active 82009258 Problem Hyperlipidemia 272.4 Active 59693197 Problem Depression F32.9 Active 463585585 Problem Atrial fibrillation with RVR I48.91 Active 81300544 Problem Chronic anticoagulation Z79.01 Active 483849435 Problem Anxiety about health F41.8 Active 380409315 Problem Insomnia G47.00 Active 787499942 Problem Coronary artery disease 414.00 Active 70988772 Problem Gout 274.9 Active 73988794 Problem Essential hypertension 401.9 Active 22157045 Problem Knee pain, left M25.562 Active 852868042 Problem Coronary artery disease I25.10 Active 89321646 Problem Gout M10.9 Active 57052692 Problem 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 Active 878104045406194 Problem Acute gout 274.01 Active 00106941 Problem Atrial fibrillation 427.31 Active 41815814 Problem Atrial fibrillation with RVR 427.31 Active 30800910 Problem Cellulitis, face 682.0 Active 583188416 Problem Depression 311 Active 789772973 Problem Essential hypertension I10 Active 42049217 Problem Seborrheic dermatitis 690.10 Active 85320388 Problem Chronic anticoagulation V58.61 Active 911340671 ALLERGIES Unknown Allergies SOCIAL HISTORY No smoking Hx information available PLAN OF CARE VITAL SIGNS MEDICATIONS Medication Instructions Dosage Frequency Start Date End Date Duration Status Allopurinol 300 MG Orally Once a day 1 tablet 24h 16 May, 2017 90 days Active Sertraline HCl 100 MG Orally Once a day 1 tablet 24h Jul, 30 day(s) Active Flecainide Acetate 50 MG Orally every 12 hrs 1 tablet 12h 90 Active Levothyroxine Sodium 50 MCG Orally Once a day 1 tablet 24h 30 Active Omeprazole 20 MG Orally Once a day 1 capsule 24h 90 Active Percocet 10-325 MG Orally every 6 hrs 1 tablet as needed 6h Feb, 15 days Active Duloxetine HCl 30 MG Orally once a day 1 capsule 24h Jul, 30 day(s) Active Lorazepam 1 Orally twice a day 1 tablet 12h 15 days Active Metoprolol Tartrate 25 MG Orally Twice a day 1 tablet 12h Jun, 90 days Active Pravastatin Sodium 40 MG Orally Once a day 1 tablet 24h 18 Apr, 2015 90 days Active Zolpidem Tartrate 5 MG Orally at bedtime 1-2 tablets as needed Jun, 15 days Active Physical Therapy eval and treat as directed March, Active Lovenox 40 MG/0.4ML Subcutaneous Once a day 0.4 ml 24h Sep, 30 day(s) Active Xarelto 20 MG Orally Once a day 1 tablet with food 24h Aug, 30 day(s) Active RESULTS No Results PROCEDURES Procedure Date Ordered Related Diagnosis Body Site PSYTX PT&/FAMILY 60 MINUTES Oct 17, 2016 IMMUNIZATIONS No Known Immunizations
--- OUTSIDE RECORDS SUMMARY | 2017-03-15 16:58 | XMS REPORT ---
Author Whitney Levin Organization [employer] Address Unknown Phone Unavailable Care Team Providers Care Regional Loss Prevention Manager Name Role Phone Whitney Pabon CP Unavailable Allergies No Known Allergies Problems Problem Type Condition Code Onset Dates Condition Status Problem Depression 311 Active Assessment Insomnia G47.00 Active Problem Essential hypertension I10 Active Problem Anxiety 300.00 Active Problem Hypothyroidism E03.9 Active Problem Depression F32.9 Active Problem Panic attacks F41.0 Active Problem Gout M10.9 Active Problem 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 Active Problem Essential hypertension 401.9 Active Problem Hyperlipidemia 272.4 Active Problem Insomnia G47.00 Active Problem Hypothyroidism 244.9 Active Problem Atrial fibrillation with RVR I48.91 Active Problem Chronic anticoagulation Z79.01 Active Problem Knee pain, left M25.562 Active Problem Coronary artery disease I25.10 Active Problem Atrial fibrillation with RVR 427.31 Active Problem Cellulitis, face 682.0 Active Problem Gout 274.9 Active Problem Coronary artery disease 414.00 Active Problem Seborrheic dermatitis 690.10 Active Problem Chronic anticoagulation V58.61 Active Problem Acute gout 274.01 Active Problem Atrial fibrillation 427.31 Active Medications Medication Code System Code Instructions Start Date End Date Status Dosage Omeprazole [facility] 68497840527 20 MG Orally Once a day 1 capsule Flecainide Acetate [facility] 30331293795 50 MG Orally every 12 hrs 1 tablet Percocet [facility] [address]-45 10-325 MG Orally every 6 hrs February 07, 2016 1 tablet as needed Zolpidem Tartrate [facility] [address]-96 5 MG Orally at bedtime Jun 21, 2016 1-2 tablets as needed Results No Known Results Summary Purpose [employer] Submission
--- OUTSIDE RECORDS SUMMARY | 2017-03-15 16:58 | XMS REPORT ---
Author Author GENERATED, SYSTEM Organization Unknown Address Unknown Phone Unavailable Care Team Providers Care Php Wordpress Developer Name Role Phone MD CORINNE, JOVAN [phone] Reason For Visit Reason for Visit from 02/15/2016 7:21 PM:* Pt Stated Reason for Adm : unstable angina R/O ACS Chief Complaint UNSTABLE ANGINA PALPITATIONS. Social History Social History from 02/17/2016 4:47 PM:* Tobacco Use? : Former Smoker Social History from 02/15/2016 7:21 PM:* Tobacco Use? : Former Smoker Functional Status Functional Status from 02/17/2016 7:37 AM:* LOC : Alert * Oriented To : Person,Place,Time,Event * Weight Bearing Status : Full * Assist Level : Independent * # Assists : Independent Functional Status from 02/16/2016 7:40 PM:* LOC : Alert * Oriented To : Person,Place,Time,Event * Weight Bearing Status : Full * Assist Level : Independent * # Assists : Independent Functional Status from 02/16/2016 7:15 AM:* LOC : Alert * Oriented To : Person,Place,Time,Event * Weight Bearing Status : Full * Assist Level : Independent * # Assists : 1 Functional Status from 02/15/2016 7:21 PM:* LOC : Alert * Oriented To : Person,Place,Time,Event * Weight Bearing Status : Full * Assist Level : Independent * # Assists : 1 Vital Signs Hospital Vital Signs from 02/17/2016 2:30 PM:* Heart Rate : 63 * Systolic BP (mmHg) : 139 * Diastolic BP (mmHg) : 82 * Mean BP (mmHg) : 89 * O2 Saturation (%) : 98 Hospital Vital Signs from 02/17/2016 2:15 PM:* Heart Rate : 65 * Systolic BP (mmHg) : 132 * Diastolic BP (mmHg) : 73 * Mean BP (mmHg) : 94 * O2 Saturation (%) : 97 Hospital Vital Signs from 02/17/2016 2:00 PM:* Heart Rate : 63 * Resp Rate : 16 * Systolic BP (mmHg) : 116 * Diastolic BP (mmHg) : 85 * Mean BP (mmHg) : 103 * O2 Saturation (%) : 97 Hospital Vital Signs from 02/17/2016 1:45 PM:* Heart Rate : 60 * Resp Rate : 12 * Systolic BP (mmHg) : 114 * Diastolic BP (mmHg) : 76 * Mean BP (mmHg) : 89 * O2 Saturation (%) : 96 Hospital Vital Signs from 02/17/2016 1:30 PM:* Heart Rate : 60 * Resp Rate : 16 * Systolic BP (mmHg) : 120 * Diastolic BP (mmHg) : 79 * Mean BP (mmHg) : 91 * O2 Saturation (%) : 97 Hospital Vital Signs from 02/17/2016 1:15 PM:* Heart Rate : 62 * Resp Rate : 16 * Systolic BP (mmHg) : 107 * Diastolic BP (mmHg) : 61 * Mean BP (mmHg) : 77 * O2 Saturation (%) : 98 [facility] Vital Signs from 02/17/2016 1:02 PM:* Temp : 98.2 * Heart Rate : 64 * Resp Rate : 16 * Systolic BP (mmHg) : 122 * Diastolic BP (mmHg) : 73 * Mean BP (mmHg) : 89 * O2 Saturation (%) : 96 Hospital Vital Signs from 02/17/2016 10:00 AM:* Heart Rate : 65 * Resp Rate : 16 * Systolic BP (mmHg) : 149 * Diastolic BP (mmHg) : 74 * Mean BP (mmHg) : 97 * O2 Saturation (%) : 98 [facility] Vital Signs from 02/17/2016 7:37 AM:* Heart Rate : 65 Hospital Vital Signs from 02/17/2016 7:00 AM:* Temp : 98.8 * Heart Rate : 65 * Resp Rate : 16 * Systolic BP (mmHg) : 133 * Diastolic BP (mmHg) : 70 * Mean BP (mmHg) : 84 * O2 Saturation (%) : 96 Hospital Vital Signs from 02/17/2016 6:00 AM:* Heart Rate : 64 Hospital Vital Signs from 02/17/2016 5:53 AM:* Weight : 141.5/ kg * Height : 5/11 ft,in Hospital Vital Signs from 02/17/2016 5:00 AM:* Heart Rate : 70 Hospital Vital Signs from 02/17/2016 4:00 AM:* Heart Rate : 68 * Systolic BP (mmHg) : 127 * Diastolic BP (mmHg) : 73 * Mean BP (mmHg) : 83 Hospital Vital Signs from 02/17/2016 3:00 AM:* Temp : 96.8 * Heart Rate : 66 Hospital Vital Signs from 02/17/2016 2:00 AM:* Heart Rate : 63 Hospital Vital Signs from 02/17/2016 1:00 AM:* Heart Rate : 67 * Systolic BP (mmHg) : 121 * Diastolic BP (mmHg) : 64 * Mean BP (mmHg) : 90 [facility] Vital Signs from 02/17/2016 12:00 AM:* Heart Rate : 70 * Systolic BP (mmHg) : 140 * Diastolic BP (mmHg) : 78 * Mean BP (mmHg) : 106 [facility] Vital Signs from 02/16/2016 11:30 PM:* Heart Rate : 78 Hospital Vital Signs from 02/16/2016 11:00 PM:* Temp : 97.5 * Heart Rate : 65 * Resp Rate : 13 * Systolic BP (mmHg) : 126 * Diastolic BP (mmHg) : 73 * Mean BP (mmHg) : 87 * O2 Saturation (%) : 95 Hospital Vital Signs from 02/16/2016 10:30 PM:* Heart Rate : 67 * Resp Rate : 19 * O2 Saturation (%) : 96 [facility] Vital Signs from 02/16/2016 10:00 PM:* Heart Rate : 71 * Resp Rate : 23 * Systolic BP (mmHg) : 132 * Diastolic BP (mmHg) : 82 * Mean BP (mmHg) : 101 * O2 Saturation (%) : 96 [facility] Vital Signs from 02/16/2016 9:30 PM:* Heart Rate : 64 * Resp Rate : 11 * Systolic BP (mmHg) : 135 * Diastolic BP (mmHg) : 93 * Mean BP (mmHg) : 114 * O2 Saturation (%) : 97 [facility] Vital Signs from 02/16/2016 9:00 PM:* Heart Rate : 64 * Resp Rate : 13 * Systolic BP (mmHg) : 138 * Diastolic BP (mmHg) : 80 * Mean BP (mmHg) : 91 * O2 Saturation (%) : 96 [facility] Vital Signs from 02/16/2016 8:30 PM:* Heart Rate : 64 * Resp Rate : 14 * Systolic BP (mmHg) : 125 * Diastolic BP (mmHg) : 78 * Mean BP (mmHg) : 89 * O2 Saturation (%) : 96 [facility] Vital Signs from 02/16/2016 8:00 PM:* Heart Rate : 66 * Resp Rate : 20 * O2 Saturation (%) : 95 [facility] Vital Signs from 02/16/2016 7:30 PM:* Heart Rate : 64 * Resp Rate : 19 * Systolic BP (mmHg) : 126 * Diastolic BP (mmHg) : 96 * Mean BP (mmHg) : 101 * O2 Saturation (%) : 95 [facility] Vital Signs from 02/16/2016 7:00 PM:* Temp : 97.7 * Heart Rate : 68 * Resp Rate : 16 * Systolic BP (mmHg) : 156 * Diastolic BP (mmHg) : 67 * Mean BP (mmHg) : 91 * O2 Saturation (%) : 95 [facility] Vital Signs from 02/16/2016 6:30 PM:* Heart Rate : 63 * Resp Rate : 13 * Systolic BP (mmHg) : 95 * Diastolic BP (mmHg) : 69 * Mean BP (mmHg) : 82 [facility] Vital Signs from 02/16/2016 6:00 PM:* Heart Rate : 66 * Resp Rate : 29 * Systolic BP (mmHg) : 120 * Diastolic BP (mmHg) : 66 * Mean BP (mmHg) : 74 * O2 Saturation (%) : 95 [facility] Vital Signs from 02/16/2016 5:30 PM:* Heart Rate : 79 * Resp Rate : 20 * Systolic BP (mmHg) : 138 * Diastolic BP (mmHg) : 66 * Mean BP (mmHg) : 87 * O2 Saturation (%) : 95 [facility] Vital Signs from 02/16/2016 4:30 PM:* Heart Rate : 70 * Resp Rate : 19 * Systolic BP (mmHg) : 121 * Diastolic BP (mmHg) : 95 * Mean BP (mmHg) : 107 * O2 Saturation (%) : 96 [facility] Vital Signs from 02/16/2016 4:00 PM:* Heart Rate : 76 * Resp Rate : 15 * Systolic BP (mmHg) : 153 * Diastolic BP (mmHg) : 77 * Mean BP (mmHg) : 101 * O2 Saturation (%) : 94 [facility] Vital Signs from 02/16/2016 3:30 PM:* Heart Rate : 70 * Resp Rate : 13 * Systolic BP (mmHg) : 129 * Diastolic BP (mmHg) : 78 * Mean BP (mmHg) : 94 * O2 Saturation (%) : 95 [facility] Vital Signs from 02/16/2016 3:00 PM:* Heart Rate : 72 * Resp Rate : 14 * Systolic BP (mmHg) : 134 * Diastolic BP (mmHg) : 90 * Mean BP (mmHg) : 109 * O2 Saturation (%) : 96 [facility] Vital Signs from 02/16/2016 2:30 PM:* Heart Rate : 70 * Resp Rate : 18 * Systolic BP (mmHg) : 152 * Diastolic BP (mmHg) : 83 * Mean BP (mmHg) : 98 * O2 Saturation (%) : 98 [facility] Vital Signs from 02/16/2016 2:15 PM:* Weight : 139.8/ kg * Height : 5/11 ft,in Hospital Vital Signs from 02/16/2016 2:00 PM:* Heart Rate : 71 * Resp Rate : 50 * Systolic BP (mmHg) : 141 * Diastolic BP (mmHg) : 125 * Mean BP (mmHg) : 131 * O2 Saturation (%) : 87 [facility] Vital Signs from 02/16/2016 1:30 PM:* Heart Rate : 67 * Resp Rate : 18 * Systolic BP (mmHg) : 143 * Diastolic BP (mmHg) : 83 * Mean BP (mmHg) : 104 * O2 Saturation (%) : 93 [facility] Vital Signs from 02/16/2016 1:00 PM:* Heart Rate : 72 * Resp Rate : 23 * Systolic BP (mmHg) : 151 * Diastolic BP (mmHg) : 75 * Mean BP (mmHg) : 92 * O2 Saturation (%) : 95 [facility] Vital Signs from 02/16/2016 12:30 PM:* Heart Rate : 76 * Resp Rate : 20 * Systolic BP (mmHg) : 118 * Diastolic BP (mmHg) : 77 * Mean BP (mmHg) : 90 * O2 Saturation (%) : 95 [facility] Vital Signs from 02/16/2016 12:00 PM:* Temp : 98.1 * Heart Rate : 71 * Resp Rate : 12 * Systolic BP (mmHg) : 110 * Diastolic BP (mmHg) : 70 * Mean BP (mmHg) : 89 [facility] Vital Signs from 02/16/2016 11:45 AM:* Heart Rate : 71 * Resp Rate : 12 * Systolic BP (mmHg) : 115 * Diastolic BP (mmHg) : 68 * Mean BP (mmHg) : 78 [facility] Vital Signs from 02/16/2016 11:30 AM:* Heart Rate : 74 * Resp Rate : 28 * Systolic BP (mmHg) : 190 * Diastolic BP (mmHg) : 98 * Mean BP (mmHg) : 131 [facility] Vital Signs from 02/16/2016 11:00 AM:* Heart Rate : 74 * Resp Rate : 16 * Systolic BP (mmHg) : 151 * Diastolic BP (mmHg) : 138 * Mean BP (mmHg) : 143 * O2 Saturation (%) : 96 [facility] Vital Signs from 02/16/2016 10:45 AM:* Heart Rate : 84 * Resp Rate : 21 * Systolic BP (mmHg) : 140 * Diastolic BP (mmHg) : 101 * Mean BP (mmHg) : 117 * O2 Saturation (%) : 94 [facility] Vital Signs from 02/16/2016 10:30 AM:* Heart Rate : 80 * Resp Rate : 18 * Systolic BP (mmHg) : 122 * Diastolic BP (mmHg) : 65 * Mean BP (mmHg) : 85 * O2 Saturation (%) : 95 [facility] Vital Signs from 02/16/2016 10:00 AM:* Heart Rate : 76 * Resp Rate : 28 * Systolic BP (mmHg) : 122 * Diastolic BP (mmHg) : 73 * Mean BP (mmHg) : 94 * O2 Saturation (%) : 94 [facility] Vital Signs from 02/16/2016 9:45 AM:* Heart Rate : 77 * Resp Rate : 11 * Systolic BP (mmHg) : 122 * Diastolic BP (mmHg) : 71 * Mean BP (mmHg) : 83 * O2 Saturation (%) : 92 [facility] Vital Signs from 02/16/2016 9:30 AM:* Heart Rate : 77 * Resp Rate : 15 * Systolic BP (mmHg) : 122 * Diastolic BP (mmHg) : 77 * Mean BP (mmHg) : 88 * O2 Saturation (%) : 93 [facility] Vital Signs from 02/16/2016 9:15 AM:* Heart Rate : 77 * Resp Rate : 15 * Systolic BP (mmHg) : 112 * Diastolic BP (mmHg) : 68 * Mean BP (mmHg) : 80 * O2 Saturation (%) : 94 [facility] Vital Signs from 02/16/2016 9:00 AM:* Heart Rate : 78 * Resp Rate : 13 * Systolic BP (mmHg) : 111 * Diastolic BP (mmHg) : 73 * Mean BP (mmHg) : 81 * O2 Saturation (%) : 94 [facility] Vital Signs from 02/16/2016 8:45 AM:* Heart Rate : 75 * Resp Rate : 15 * Systolic BP (mmHg) : 168 * Diastolic BP (mmHg) : 56 * Mean BP (mmHg) : 104 * O2 Saturation (%) : 94 [facility] Vital Signs from 02/16/2016 8:30 AM:* Heart Rate : 76 * Resp Rate : 14 * Systolic BP (mmHg) : 122 * Diastolic BP (mmHg) : 68 * Mean BP (mmHg) : 83 * O2 Saturation (%) : 90 [facility] Vital Signs from 02/16/2016 8:15 AM:* Heart Rate : 75 * Resp Rate : 12 * Systolic BP (mmHg) : 118 * Diastolic BP (mmHg) : 70 * Mean BP (mmHg) : 83 * O2 Saturation (%) : 84 [facility] Vital Signs from 02/16/2016 8:00 AM:* Heart Rate : 79 * Resp Rate : 15 * Systolic BP (mmHg) : 129 * Diastolic BP (mmHg) : 82 * Mean BP (mmHg) : 108 * O2 Saturation (%) : 93 [facility] Vital Signs from 02/16/2016 7:45 AM:* Heart Rate : 89 * Resp Rate : 19 * Systolic BP (mmHg) : 130 * Diastolic BP (mmHg) : 72 * Mean BP (mmHg) : 84 * O2 Saturation (%) : 93 [facility] Vital Signs from 02/16/2016 7:15 AM:* Temp : 98.3 * Heart Rate : 76 * Heart Rate : 78 * Resp Rate : 13 * Systolic BP (mmHg) : 128 * Diastolic BP (mmHg) : 70 * Mean BP (mmHg) : 85 * O2 Saturation (%) : 93 [facility] Vital Signs from 02/16/2016 7:00 AM:* Heart Rate : 82 * Resp Rate : 20 * Systolic BP (mmHg) : 120 * Diastolic BP (mmHg) : 64 * Mean BP (mmHg) : 77 [facility] Vital Signs from 02/16/2016 6:30 AM:* Heart Rate : 77 * Resp Rate : 17 * Systolic BP (mmHg) : 124 * Diastolic BP (mmHg) : 78 * Mean BP (mmHg) : 92 * O2 Saturation (%) : 92 [facility] Vital Signs from 02/16/2016 6:15 AM:* Heart Rate : 78 * Resp Rate : 17 * Systolic BP (mmHg) : 124 * Diastolic BP (mmHg) : 74 * Mean BP (mmHg) : 96 * O2 Saturation (%) : 94 [facility] Vital Signs from 02/16/2016 6:00 AM:* Heart Rate : 76 * Resp Rate : 13 * Systolic BP (mmHg) : 121 * Diastolic BP (mmHg) : 69 * Mean BP (mmHg) : 86 * O2 Saturation (%) : 93 [facility] Vital Signs from 02/16/2016 5:45 AM:* Heart Rate : 76 * Resp Rate : 22 * Systolic BP (mmHg) : 145 * Diastolic BP (mmHg) : 91 * Mean BP (mmHg) : 114 * O2 Saturation (%) : 94 [facility] Vital Signs from 02/16/2016 5:30 AM:* Heart Rate : 78 * Resp Rate : 12 * Systolic BP (mmHg) : 114 * Diastolic BP (mmHg) : 66 * Mean BP (mmHg) : 82 * O2 Saturation (%) : 92 [facility] Vital Signs from 02/16/2016 5:15 AM:* Heart Rate : 87 * Resp Rate : 16 * Systolic BP (mmHg) : 128 * Diastolic BP (mmHg) : 63 * Mean BP (mmHg) : 90 [facility] Vital Signs from 02/16/2016 5:00 AM:* Heart Rate : 79 * Resp Rate : 20 * Systolic BP (mmHg) : 141 * Diastolic BP (mmHg) : 67 * Mean BP (mmHg) : 87 [facility] Vital Signs from 02/16/2016 4:45 AM:* Heart Rate : 88 * Resp Rate : 33 * Systolic BP (mmHg) : 130 * Diastolic BP (mmHg) : 72 * Mean BP (mmHg) : 81 [facility] Vital Signs from 02/16/2016 4:30 AM:* Heart Rate : 80 * Resp Rate : 13 * Systolic BP (mmHg) : 146 * Diastolic BP (mmHg) : 80 * Mean BP (mmHg) : 98 [facility] Vital Signs from 02/16/2016 4:15 AM:* Heart Rate : 83 * Resp Rate : 30 [facility] Vital Signs from 02/16/2016 4:00 AM:* Heart Rate : 78 * Resp Rate : 10 * Systolic BP (mmHg) : 105 * Diastolic BP (mmHg) : 69 * Mean BP (mmHg) : 78 [facility] Vital Signs from 02/16/2016 3:45 AM:* Heart Rate : 82 * Resp Rate : 17 * Systolic BP (mmHg) : 130 * Diastolic BP (mmHg) : 75 * Mean BP (mmHg) : 86 [facility] Vital Signs from 02/16/2016 3:30 AM:* Heart Rate : 93 * Resp Rate : 23 * Systolic BP (mmHg) : 134 * Diastolic BP (mmHg) : 69 * Mean BP (mmHg) : 95 [facility] Vital Signs from 02/16/2016 3:15 AM:* Heart Rate : 86 * Resp Rate : 27 * Systolic BP (mmHg) : 101 * Diastolic BP (mmHg) : 67 * Mean BP (mmHg) : 83 [facility] Vital Signs from 02/16/2016 3:00 AM:* Temp : 98.1 * Heart Rate : 81 * Resp Rate : 16 * Systolic BP (mmHg) : 114 * Diastolic BP (mmHg) : 67 * Mean BP (mmHg) : 83 [facility] Vital Signs from 02/16/2016 2:45 AM:* Heart Rate : 78 * Resp Rate : 14 * Systolic BP (mmHg) : 116 * Diastolic BP (mmHg) : 54 * Mean BP (mmHg) : 70 [facility] Vital Signs from 02/16/2016 2:30 AM:* Heart Rate : 82 * Resp Rate : 19 * Systolic BP (mmHg) : 123 * Diastolic BP (mmHg) : 95 * Mean BP (mmHg) : 109 * O2 Saturation (%) : 89 [facility] Vital Signs from 02/16/2016 2:15 AM:* Heart Rate : 71 * Resp Rate : 11 * Systolic BP (mmHg) : 125 * Diastolic BP (mmHg) : 72 * Mean BP (mmHg) : 93 * O2 Saturation (%) : 90 [facility] Vital Signs from 02/16/2016 2:00 AM:* Heart Rate : 69 * Resp Rate : 16 * Systolic BP (mmHg) : 126 * Diastolic BP (mmHg) : 87 * Mean BP (mmHg) : 105 * O2 Saturation (%) : 93 [facility] Vital Signs from 02/16/2016 1:45 AM:* Heart Rate : 96 * Resp Rate : 21 * Systolic BP (mmHg) : 145 * Diastolic BP (mmHg) : 71 * Mean BP (mmHg) : 102 [facility] Vital Signs from 02/16/2016 1:30 AM:* Heart Rate : 71 * Resp Rate : 27 * O2 Saturation (%) : 94 [facility] Vital Signs from 02/16/2016 1:15 AM:* Heart Rate : 71 * Resp Rate : 10 [facility] Vital Signs from 02/16/2016 1:00 AM:* Heart Rate : 71 * Resp Rate : 23 * Systolic BP (mmHg) : 137 * Diastolic BP (mmHg) : 86 * Mean BP (mmHg) : 112 * O2 Saturation (%) : 93 [facility] Vital Signs from 02/16/2016 12:45 AM:* Heart Rate : 69 * Resp Rate : 15 * Systolic BP (mmHg) : 110 * Diastolic BP (mmHg) : 75 * Mean BP (mmHg) : 86 * O2 Saturation (%) : 93 [facility] Vital Signs from 02/16/2016 12:30 AM:* Heart Rate : 75 * Resp Rate : 15 * O2 Saturation (%) : 89 [facility] Vital Signs from 02/16/2016 12:15 AM:* Heart Rate : 76 * Resp Rate : 20 * O2 Saturation (%) : 94 [facility] Vital Signs from 02/16/2016 12:00 AM:* Resp Rate : 19 * Systolic BP (mmHg) : 130 * Diastolic BP (mmHg) : 95 * Mean BP (mmHg) : 107 * O2 Saturation (%) : 94 [facility] Vital Signs from 02/15/2016 11:45 PM:* Heart Rate : 68 * Resp Rate : 11 * Systolic BP (mmHg) : 126 * Diastolic BP (mmHg) : 76 * Mean BP (mmHg) : 96 * O2 Saturation (%) : 94 [facility] Vital Signs from 02/15/2016 11:30 PM:* Heart Rate : 67 * Resp Rate : 14 * Systolic BP (mmHg) : 118 * Diastolic BP (mmHg) : 61 * Mean BP (mmHg) : 90 * O2 Saturation (%) : 94 [facility] Vital Signs from 02/15/2016 11:15 PM:* Heart Rate : 67 * Resp Rate : 12 * Systolic BP (mmHg) : 118 * Diastolic BP (mmHg) : 78 * Mean BP (mmHg) : 95 * O2 Saturation (%) : 96 [facility] Vital Signs from 02/15/2016 11:00 PM:* Heart Rate : 65 * Resp Rate : 18 * Systolic BP (mmHg) : 118 * Diastolic BP (mmHg) : 75 * Mean BP (mmHg) : 82 * O2 Saturation (%) : 94 [facility] Vital Signs from 02/15/2016 10:45 PM:* Heart Rate : 68 * Resp Rate : 19 * O2 Saturation (%) : 94 [facility] Vital Signs from 02/15/2016 10:30 PM:* Heart Rate : 70 * Resp Rate : 17 * O2 Saturation (%) : 94 [facility] Vital Signs from 02/15/2016 10:15 PM:* Heart Rate : 68 * Resp Rate : 17 * Systolic BP (mmHg) : 97 * Diastolic BP (mmHg) : 70 * Mean BP (mmHg) : 85 * O2 Saturation (%) : 95 [facility] Vital Signs from 02/15/2016 10:00 PM:* Heart Rate : 66 * Resp Rate : 18 * Systolic BP (mmHg) : 118 * Diastolic BP (mmHg) : 83 * Mean BP (mmHg) : 89 * O2 Saturation (%) : 94 [facility] Vital Signs from 02/15/2016 9:45 PM:* Heart Rate : 67 * Resp Rate : 20 [facility] Vital Signs from 02/15/2016 9:30 PM:* Heart Rate : 66 * Resp Rate : 15 [facility] Vital Signs from 02/15/2016 9:15 PM:* Heart Rate : 68 * Resp Rate : 18 * Systolic BP (mmHg) : 117 * Diastolic BP (mmHg) : 69 * Mean BP (mmHg) : 83 [facility] Vital Signs from 02/15/2016 9:00 PM:* Heart Rate : 77 * Resp Rate : 15 * Systolic BP (mmHg) : 107 * Diastolic BP (mmHg) : 72 * Mean BP (mmHg) : 88 [facility] Vital Signs from 02/15/2016 8:45 PM:* Heart Rate : 68 * Resp Rate : 17 Results Chemistry from 02/16/2016 5:54 AMTROPONIN-I <0.017 NG/ML (0.000-0.056 NG/ML) CHOLESTEROL 166 MG/DL (50-199 MG/DL) TRIGLYCERIDES 267 MG/DL H (0-149 MG/DL) HDL CHOLESTEROL 39 MG/DL L (40-60 MG/DL) *LDL (CALCULATED) CHOL 74 MG/DL (0-99 MG/DL) Chemistry from 02/15/2016 11:37 PMTROPONIN-I <0.017 NG/ML (0.000-0.056 NG/ML) Chemistry from 02/15/2016 6:50 PMTROPONIN-I <0.017 NG/ML (0.000-0.056 NG/ML) CK 105 U/L (39-308 U/L) Coagulation from 02/17/2016 3:45 AM*PROTHROMBIN TIME 14.1 SECONDS H (9.4-11.5 SECONDS) *INR 1.3 H (0.9-1.1 ) Coagulation from 02/16/2016 5:54 AM*PROTHROMBIN TIME 30.8 SECONDS H (9.4-11.5 SECONDS) *INR 2.8 H (0.9-1.1 ) Coagulation from 02/15/2016 6:50 PMD-DIMER <0.19 MG/L FEU (0.00-0.50 MG/L FEU) DX Radiology from 02/16/2016 4:40 AMCHEST 1 VIEW History: Chest Pain Priors: Chest x-ray 02/15/2016 Findings: The heart size and pulmonary vasculature are within normal limits. There has been development of a mild right basilar opacity, suspicious for atelectasis however early pneumonia is not excluded. No significant pleural effusion or pneumothorax is seen. Impression: Development of a mild right basilar opacity, suspicious for atelectasis however early pneumonia is not excluded. Clinical correlation is suggested. Electronically signed by: Leandra Cade MD Dictated: 02/16/2016 11:01 CT Scan from 02/16/2016 10:18 [facility] CHEST (CTA) History: Chest Pain . Technique: Post contrast images were performed after the administration of 95 milliliters of Isovue intravenous contrast. 3 dimensional reconstructions were performed by the technologist. Priors: 06/08/15 Findings: Heart Size: Normal. Aorta: Intact and normal in size. Mediastinum and Gricel: There are few normal size mediastinal lymph nodes. There is no lymphadenopathy. Pulmonary Arteries: Opacification the more distal pulmonary arteries is suboptimal. No filling defects to suggest pulmonary embolus are demonstrated. Pleura: There is minimal linear opacity in the right lower lobe, similar to the prior study and likely related to scarring. Very mild ground-glass opacities in both lungs may be related to mild degree of pulmonary edema. Pulmonary parenchyma: No consolidation or dominant measurable mass. Upper abdomen: Unremarkable. Impression: No pulmonary embolus is demonstrated although evaluation of more distal pulmonary arteries is somewhat limited. Linear opacity right lower lobe is similar to the prior study likely related scarring. Very mild ground-glass opacities. This can be seen with mild pulmonary edema. Electronically signed by: Emerson Biswas MD Dictated: 02/16/2016 11:19 Problems Encounter Diagnosis * Acute Pain Status:Active. * Angina Status:Active. * Fall Risk Status:Active. * Palpitations Status:Active. Additional Problems * Atrial Fibrillation Comment:Problem [...] Encounter Diagnosis * Acute Pain Status:Active. * Angina Status:Active. * Fall Risk Status:Active. * Palpitations Status:Active. Plan of Care Follow-up Appointments from 02/17/2016 4:47 PM:* #1 Office appointment: : Dr. Baltazar * #1 Date/Time : 02/28/2016 9:00 AM * Address # 1 : [facility]: [facility] * #2 Office appointment: : [place] * #2 Date/Time : 08/15/2016 3:00 PM * Address # 2 : [place] Treatment Plan from 02/17/2016 12:24 PM:* Care Management Note : Patient having heart cath today. SW notified of POC. Care Management will continue to follow. Treatment Plan from 02/16/2016 1:20 PM:* Care Management Note : Patient is Inpatient status in an ICU bed. Patient was seen in ER with complaints of chest pain. Patient has a significant cardiac history with 5 AMIs. Patient is currently being treated with NTG drip with titrations, NPO, IVF @125, home medications PO, and mephyton PO x1. Abnormal labs: INR- 3.0. Echo pending results. CXR shows Development of a mild right basilar opacity, suspicious for atelectasis however early pneumonia is not excluded. CTA shows no pulmonary embolus is demonstrated although evaluation of more distal pulmonary arteries is somewhat limited. Linear opacity right lower lobe is similar to the prior study likely related scarring. Very mild ground-glass opacities. This can be seen with mild pulmonary edema. VSS on 2L/NC and NSR on telemetry. Plan is for heart cath in AM. SW notified of POC. Care Management will continue to follow. Procedures * Completed [...] to care for yourself at home from 02/17/2016 4:47 PM:* Discharge Activity : Activity as tolerated,May Shower,Do not engage in sports, heavy work or heavy lifting until your physician gives permission * Discharge Diet : Modification as given by physician * Discharge Diet: : cardiac * Discharge Wound Care : Keep dressings dry,Change dressings as necessary, Notify your physician if the following develops: redness, swelling, drainage or color of drainage changes, odor or increased pain. * Call your doctor if: : Fever [...] Catherization Instructions * Discharge on Warfarin : Yes * Appointment for INR : as directed Allergies, Adverse Reactions, Alerts * Zofran (as hydrochloride) causes "throat feels swollen". Onset Acute. * codeine causes Moderate Nausea/Vomiting. * Darvon causes unspecified. * No Latex Allergy. * No IV Contrast Allergy. * No Known Food Allergies. Medication It is the responsibility of the patient or patient customer care representative to confirm the list of medications with either the patient's personal care provider or the patient's follow-up care provider to ensure the patient has an appropriate list of medications to take at home. Discharge medications Continued medications* allopurinol 300 mg Tablet, Ordered By: RUT SEAY RN Directions: 1 tablet oral daily * flecainide 50 mg Tablet, Ordered By: RUT SEAY RN Directions: 1 tablet oral twice a day * indomethacin 50 mg Capsule, Ordered By: RUT SEAY RN Directions: 1 capsule oral daily PRN pain * levothyroxine (Synthroid) 50 mcg Tablet, Ordered By: RUT SEAY RN Directions: 1 tablet oral daily every morning * metoprolol tartrate 50 mg Tablet, Ordered By: RUT SEAY RN Directions: 1 tablet oral twice a day every morning and at bedtime * pravastatin 40 mg Tablet, Ordered By: RUT SEAY RN Directions: 1 tablet oral daily at bedtime * sertraline (Zoloft) 200 mg Tablet, Ordered By: RUT SEAY RN Directions: 1 tablet oral daily every evening * warfarin 10 mg Tablet, Ordered By: RUT SEAY RN Directions: 1 tablet oral daily Changed medications* omeprazole 40 mg capsule,delayed release(/EC), Ordered By : RUT SEAY RN Directions: 1 capsule oral daily before breakfast Stopped medications* None
--- OUTSIDE RECORDS SUMMARY | 2017-03-15 16:58 | XMS REPORT ---
Author Author GENERATED, SYSTEM Organization Unknown Address Unknown Phone Unavailable Care Team Providers Care Curber Name Role Phone MD CORINNE, JOVAN PP [phone] Reason For Visit Chief Complaint CHEST PAIN [...]
--- OUTSIDE RECORDS SUMMARY | 2017-03-15 16:59 | XMS REPORT ---
Author Author Stuart Baltazar Organization [facility] Address [address] [place], [place] [address] Care Team Providers Care Citrix Systems Administrator Name Role Phone Stuart Baltazar Unavailable [phone] PROBLEMS Type Condition ICD9-CM Code XEB10-PE Code Onset Dates Condition Status SNOMED Code Problem Anxiety 300.00 Active 74607681 Problem Hypothyroidism E03.9 Active 81002820 Problem Hypothyroidism 244.9 Active 71700633 Problem Panic attacks F41.0 Active 86226535 Problem Hyperlipidemia 272.4 Active 02995648 Problem Depression F32.9 Active 870727764 Problem Atrial fibrillation with RVR I48.91 Active 64832229 Problem Chronic anticoagulation Z79.01 Active 953293911 Problem Anxiety about health F41.8 Active 875316460 Problem Insomnia G47.00 Active 762977819 Problem Coronary artery disease 414.00 Active 44598905 Problem Gout 274.9 Active 58374935 Problem Essential hypertension 401.9 Active 68968147 Problem Knee pain, left M25.562 Active 959625683 Problem Coronary artery disease I25.10 Active 22537800 Problem Gout M10.9 Active 96656332 Problem 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 Active 803873726883503 Problem Acute gout 274.01 Active 02006279 Problem Atrial fibrillation 427.31 Active 10652503 Problem Atrial fibrillation with RVR 427.31 Active 21476879 Problem Cellulitis, face 682.0 Active 493703759 Problem Depression 311 Active 273243484 Problem Essential hypertension I10 Active 30810561 Problem Seborrheic dermatitis 690.10 Active 94491102 Problem Chronic anticoagulation V58.61 Active 854813355 ALLERGIES Unknown Allergies SOCIAL HISTORY No smoking Hx information available PLAN OF CARE VITAL SIGNS MEDICATIONS Unknown Medications RESULTS No Results PROCEDURES No Known procedures IMMUNIZATIONS No Known Immunizations
--- OUTSIDE RECORDS SUMMARY | 2017-03-15 16:59 | XMS REPORT ---
Author Author Stuart Baltazar Organization [facility] Address [address] [place], [place] [address] Care Team Providers Care Line Haul Driver Name Role Phone Stuart Baltazar Unavailable [phone] PROBLEMS Type Condition ICD9-CM Code STR27-LH Code Onset Dates Condition Status SNOMED Code Problem Anxiety 300.00 Active 09942377 Problem Hypothyroidism E03.9 Active 50642850 Problem Hypothyroidism 244.9 Active 10274062 Problem Panic attacks F41.0 Active 813581486 Problem Hyperlipidemia 272.4 Active 64092305 Problem Depression F32.9 Active 436117716 Problem Atrial fibrillation with RVR I48.91 Active 47755613 Problem Chronic anticoagulation Z79.01 Active 398271783 Problem Anxiety about health F41.8 Active 081888106 Problem Insomnia G47.00 Active 998018673 Problem Coronary artery disease 414.00 Active 47808267 Problem Gout 274.9 Active 88080052 Problem Essential hypertension 401.9 Active 70137803 Problem Knee pain, left M25.562 Active 295220782 Problem Coronary artery disease I25.10 Active 95074616 Problem Gout M10.9 Active 29461654 Problem 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 Active 033274776817680 Problem Acute gout 274.01 Active 79532759 Problem Atrial fibrillation 427.31 Active 38380847 Problem Atrial fibrillation with RVR 427.31 Active 70417336 Problem Cellulitis, face 682.0 Active 250091878 Problem Depression 311 Active 731682293 Problem Essential hypertension I10 Active 62394600 Problem Seborrheic dermatitis 690.10 Active 30767735 Problem Chronic anticoagulation V58.61 Active 872043840 ALLERGIES Unknown Allergies SOCIAL HISTORY No smoking Hx information available PLAN OF CARE VITAL SIGNS MEDICATIONS Medication Instructions Dosage Frequency Start Date End Date Duration Status Trazodone HCl 100 MG Orally at bedtime 2 tablets Nov, 30 day( s) Active Duloxetine HCl 60 MG Orally Once a day 1 capsule 24h Nov, 30 day(s) Active Xarelto 20 MG Orally Once a day 1 tablet with food 24h 14 Aug, 2016 30 day(s) Active HydrOXYzine HCl 50 MG Orally three times a day 1 tablet 8h Nov, 30 days Active RESULTS No Results PROCEDURES No Known procedures IMMUNIZATIONS No Known Immunizations
--- OUTSIDE RECORDS SUMMARY | 2017-03-15 16:59 | XMS REPORT ---
Author Author Whitney Pabon [facility] Address [address] [place], [place] [address] Care Team Providers Care Credit Processor Name Role Phone Whitney Pabon Unavailable [phone] PROBLEMS Type Condition ICD9-CM Code BBK29-KI Code Onset Dates Condition Status SNOMED Code Problem Anxiety 300.00 Active 55118166 Problem Hypothyroidism E03.9 Active 17219627 Problem Hypothyroidism 244.9 Active 57021724 Problem Panic attacks F41.0 Active 98139327 Problem Hyperlipidemia 272.4 Active 82287663 Problem Depression F32.9 Active 299922768 Problem Atrial fibrillation with RVR I48.91 Active 18302479 Problem Chronic anticoagulation Z79.01 Active 862684709 Problem Anxiety about health F41.8 Active 927090074 Problem Insomnia G47.00 Active 935022609 Problem Coronary artery disease 414.00 Active 01597158 Problem Gout 274.9 Active 53260090 Problem Essential hypertension 401.9 Active 57471786 Problem Knee pain, left M25.562 Active 105452318 Problem Coronary artery disease I25.10 Active 66780150 Problem Gout M10.9 Active 68353346 Problem 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 Active 471785195566424 Problem Acute gout 274.01 Active 62161599 Problem Atrial fibrillation 427.31 Active 99432493 Problem Atrial fibrillation with RVR 427.31 Active 98946158 Problem Cellulitis, face 682.0 Active 017700135 Problem Depression 311 Active 234554030 Problem Essential hypertension I10 Active 72825166 Problem Seborrheic dermatitis 690.10 Active 44296710 Problem Chronic anticoagulation V58.61 Active 627445238 ALLERGIES Unknown Allergies SOCIAL HISTORY No smoking Hx information available PLAN OF CARE VITAL SIGNS MEDICATIONS Medication Instructions Dosage Frequency Start Date End Date Duration Status Percocet 10-325 MG Orally every 6 hrs 1 tablet as needed 6h Feb, 15 days Active RESULTS No Results PROCEDURES No Known procedures IMMUNIZATIONS No Known Immunizations
--- OUTSIDE RECORDS SUMMARY | 2017-03-15 16:59 | XMS REPORT | Continuity of Care Document ---
Author Author [facility] Organization [facility] Address Unknown Phone Unavailable Allergies Active Description Code Type Severity Reaction Onset Reported/Identified Relationship to Patient Clinical Status Yes cefTRIAXone NKMA Severe tongue swelling 03/05/2014 Yes codeine NKMA N/A Rash 03/05/2014 Yes indomethacin NKMA N/A N/A 03/05/2014 Yes pregabalin NKMA N/A swelling of feet/vomited blood 03/05/2014 Yes codeine codeine Drug Allergy Mild NA 07/10/2014 Yes FLU SHOT FLU SHOT Drug Allergy Mild NA 07/10/2014 Yes FLU SHOT FLU SHOT Drug Allergy Mild UNKNOWN 08/17/2015 Yes Darvon NKMA N/A [id number] 01/25/2016 Yes atorvastatin atorvastatin Drug Allergy Mild INCREASED HEART RATE 01/29/2016 Yes codeine codeine Drug Allergy Mild UNKNOWN 01/29/2016 Yes propoxyphene propoxyphene Drug Allergy Mild BREATHING 01/29/2016 Medications Problems Date Dx Coded Attending Type Code Diagnosis Diagnosed By 06/04/2015 DAVID TONG 54427 CHEST PAIN NOS 06/04/2015 DAVID TONG V1582 HISTORY OF TOBACCO USE 08/17/2015 Sharmila Green MD E03.9 HYPOTHYROIDISM, UNSPECIFIED 08/17/2015 Sharmila Green MD E11.9 TYPE 2 DIABETES MELLITUS WITHOUT COMPLICATIONS 08/17/2015 Sharmila Green MD E78.5 HYPERLIPIDEMIA, UNSPECIFIED 08/17/2015 Sharmila Green MD F41.9 ANXIETY DISORDER, UNSPECIFIED 08/17/2015 Sharmila Green MD G47.33 OBSTRUCTIVE SLEEP APNEA (ADULT) (PEDIATRIC) 08/17/2015 Sharmila Green MD G89.29 OTHER CHRONIC PAIN 08/17/2015 Sharmila Green MD I10 ESSENTIAL (PRIMARY) HYPERTENSION 08/17/2015 Sharmila Green MD I25.10 ATHSCL HEART DISEASE OF [place] CORONARY ARTERY W/O 08/17/2015 Peter REAGAN, Sharmila Verduzco I48.92 UNSPECIFIED ATRIAL FLUTTER 08/17/2015 Peter REAGAN, Sharmila Verduzco K26.9 DUODENAL ULCER, UNSP ACUTE OR CHRONIC, W/ O HEMO 08/17/2015 Peter REAGAN, Sharmila Verduzco M10.9 GOUT, UNSPECIFIED 08/17/2015 Peter REAGAN, Sharmila Verduzco Z86.73 PRSNL HX OF TIA (TIA), AND CEREB INFRC W/O RESID D 08/17/2015 Peter REAGAN, Sharmila Verduzco Z88.8 ALLERGY STATUS TO OTH DRUG/MEDS/BIOL SUBST STATUS 12/23/2015 ANNIE YAÑEZ E039 Hypothyroidism, unspecified 12/23/2015 ANNIE YAÑEZ E669 Obesity, unspecified 12/23/2015 ANNIE YAÑEZ E785 Hyperlipidemia, unspecified 12/23/2015 ANNIE YAÑEZ F419 Anxiety disorder, unspecified 12/23/2015 ANNIE YAÑEZ I10 Essential (primary) hypertension 12/23/2015 ANNIE YAÑEZ I2510 Athscl heart disease of [place] coronary artery w/o ang pctrs 12/23/2015 ANNIE YAÑEZ I480 Paroxysmal atrial fibrillation 12/23/2015 ANNIE YAÑEZ R079 Chest pain, unspecified 12/23/2015 ANNIE YAÑEZ Z6842 Body mass index (BMI) 45.0-49.9, adult 12/23/2015 ANNIE YAÑEZ Z7982 terminal supervisor (current) use of aspirin 12/23/2015 ANNIE YAÑEZ [id number] Other terminal supervisor (current) drug therapy 12/23/2015 ANNIE YAÑEZ Z8673 Prsnl hx of TIA (TIA), and cereb infrc w/o resid deficits 12/23/2015 ANNIE YAÑEZ [id number] Personal history of nicotine dependence 01/13/2016 KEIRY STROUD E039 Hypothyroidism, unspecified 01/13/2016 KEIRY STROUD E669 Obesity, unspecified 01/13/2016 KEIRY STROUD E785 Hyperlipidemia, unspecified 01/13/2016 KEIRY STROUD F419 Anxiety disorder, unspecified 01/13/2016 KEIRY STROUD I10 Essential (primary) hypertension 01/13/2016 KEIRY STROUD I2510 Athscl heart disease of [place] coronary artery w/o ang pctrs 01/13/2016 KEIRY STROUD I480 Paroxysmal atrial fibrillation 01/13/2016 KEIRY STROUD R0789 Other chest pain 01/13/2016 KEIRY STROUD R079 Chest pain, unspecified 01/13/2016 KEIRY STROUD R791 Abnormal coagulation profile 01/13/2016 KEIRY STROUD Z6841 Body mass index (BMI) 40.0-44.9, adult 01/13/2016 KEIRY STROUD Z7901 care home (current) use of anticoagulants 01/13/2016 KEIRY STROUD N43010 Other group home (current) drug therapy 01/13/2016 KEIRY STROUD Z8673 Prsnl hx of TIA (TIA), and cereb infrc w/o resid deficits 01/13/2016 KEIRY STROUD Z9861 Coronary angioplasty status 02/01/2016 Timi De Dios MD Final E03.9 Hypothyroidism, unspecified 02/01/2016 Timi De Dios MD Final F41.8 Other specified anxiety disorders 02/01/2016 Timi De Dios MD Final I10 Essential (primary) hypertension 02/01/2016 Timi De Dios MD Final I25.10 Atherosclerotic heart disease of [place] coronary artery without angina pect 02/01/2016 Timi De Dios MD Final I25.2 Old myocardial infarction 02/01/2016 Timi De Dios MD Final I34.0 Nonrheumatic mitral (valve) insufficiency 02/01/2016 Timi De Dios MD Reason I48.0 Paroxysmal atrial fibrillation 02/01/2016 Timi De Dios MD Final K21.9 Gastro-esophageal reflux disease without esophagitis 02/01/2016 Timi De Dios MD Final R07.89 Other chest pain 02/01/2016 Timi De Dios MD Final Z79.01 care home (current) use of anticoagulants 02/01/2016 Timi De Dios MD Final Z87.891 Personal history of nicotine dependence 02/02/2016 Timi De Dios MD Final E03.9 Hypothyroidism, unspecified 02/02/2016 Timi De Dios MD Final E66.9 Obesity, unspecified 02/02/2016 Timi De Dios MD Final E87.5 Hyperkalemia 02/02/2016 Timi De Dios MD Final F32.9 Major depressive disorder, single episode, unspecified 02/02/2016 Timi De Dios MD Final F41.9 Anxiety disorder, unspecified 02/02/2016 Timi De Dios MD Final G47.00 Insomnia, unspecified 02/02/2016 Timi De Dios MD Final G89.29 Other chronic pain 02/02/2016 Timi De Dios MD Final I25.10 Atherosclerotic heart disease of [place] coronary artery without angina pect 02/02/2016 Timi De Dios MD Final I48.0 Paroxysmal atrial fibrillation 02/02/2016 Timi De Dios MD Final M10.9 Gout, unspecified 02/02/2016 Timi De Dios MD Final Z68.41 Body mass index (BMI) 40.0-44.9, adult 02/25/2016 Ella STROUD E6601 Morbid (severe) obesity due to excess calories 02/25/2016 Ella STROUD E785 Hyperlipidemia, unspecified 02/25/2016 Ella STROUD I10 Essential (primary) hypertension 02/25/2016 Ella STROUD I2510 Athscl heart disease of [place] coronary artery w/o ang pctrs 02/25/2016 Ella STROUD I4891 Unspecified atrial fibrillation 02/25/2016 Ella STROUD R0789 Other chest pain 02/25/2016 Ella STROUD R079 Chest pain, unspecified 02/25/2016 Ella STROUD Z6841 Body mass index (BMI) 40.0-44.9, adult 02/25/2016 Ella STROUD Z7901 care home (current) use of anticoagulants 02/25/2016 Ella STROUD Z955 Presence of coronary angioplasty implant and graft 04/04/2016 OC ANDERSON [id number] Sprain of unspecified site of left knee, initial encounter 04/04/2016 OC ANDERSON [id number] Exposure to other specified factors, initial encounter 04/04/2016 OC ANDERSON Y[address] or not applicable 04/04/2016 OC ANDERSON Y939 Activity, unspecified 04/04/2016 OC ANDERSON Y999 Unspecified external cause status 04/04/2016 OC ANDERSON Z7901 terminal supervisor (current) use of anticoagulants 04/04/2016 OC ANDERSON [id number] Other terminal supervisor (current) drug therapy 04/04/2016 OC ANDERSON [id number] Personal history of nicotine dependence Procedures Code Description Performed By Performed On [id number] EXCISION OF STOMACH, ENDO, DIAGN Peter REAGAN, Sharmila H 08/17/2015 [id number] 02/17/2016 [id number] 02/17/2016 [id number] 02/17/2016 Results Test Result Range TROPONIN I - 08/18/15 01:23 TROPONIN I < 0.02 ng/mL < 0.07 CBC - 08/18/15 03:15 MEAN CELL HGB 29.6 pg 27.0-33.0 MEAN CELL HGB CONCENTRATION 33.3 g/dL 32.0-37.0 MEAN CELL VOLUME 88.9 fl 80.0-100.0 RED BLOOD CELL 4.42 m/cumm 4.00-6.00 RED CELL DISTRIBUTION WIDTH 15.2 % 11.0- 15.6 WHITE BLOOD CELL 9.2 k/cumm 5.0-10.0 HEMOGLOBIN 13.1 gm/dL 14.0-18.0 HEMATOCRIT 39.3 % 40.0-54.0 PLATELET COUNT 270 k/cumm 150-450 PROTHROMBIN TIME WITH INR - 08/18/15 03:15 INTERNATIONAL NORMAL RATIO 1.4 0.9-1.1 PROTHROMBIN TIME 16.2 sec 9.3-12.2 TROPONIN I - 08/18/15 03:15 TROPONIN I < 0.02 ng/mL < 0.07 METABOLIC PANEL, COMPREHN - 08/18/15 03:15 POTASSIUM 4.3 mmol/L 3.5-5.3 EST GFR (MDRD) > 60 mL/min > 59 ANION GAP 11 mmol/L 5-15 EST CrCl (CG) > 60 mL/min > 59 GLUCOSE 124 mg/dL 70-99 CALCIUM 7.8 mg/dL 8.5-10.1 BLOOD UREA NITROGEN 16 mg/dL 7-20 CREATININE 1.0 mg/dL 0.7-1.3 SODIUM 139 mmol/L 135-148 CHLORIDE 104 mmol/L 98-110 AST/SGOT 21 Units/L 10-37 ALT/SGPT 30 Units/L < 66 CARBON DIOXIDE 24 mmol/L 21-32 TOTAL PROTEIN 6.5 gm/dL 6.4-8.2 ALBUMIN 3.2 gm/dL 3.4-5.0 BILI TOTAL 0.3 mg/dL 0.0-1.0 ALKALINE PHOSPHATASE TOTAL 60 IU/L 45- 117 HEMOGLOBIN A1C - 08/18/15 03:15 HEMOGLOBIN A1C 6.2 % < 5.7 THYROID STIM HORMONE (TSH) - 08/18/15 03:15 THYROID STIM HORMONE (TSH) 7.25 uIU/mL 0.34-4.82 TROPONIN I - 08/18/15 10:29 TROPONIN I < 0.02 ng/mL < 0.07 TROPONIN I - 08/18/15 16:14 TROPONIN I < 0.02 ng/mL < 0.07 METABOLIC PANEL, BASIC - 08/20/15 03:19 POTASSIUM 4.8 mmol/L 3.5-5.3 EST GFR (MDRD) > 60 mL/min > 59 ANION GAP 9 mmol/L 5-15 EST CrCl (CG) > 60 mL/min > 59 GLUCOSE 110 mg/dL 70-99 CALCIUM 8.9 mg/dL 8.5-10.1 BLOOD UREA NITROGEN 18 mg/dL 7-20 CREATININE 1.2 mg/dL 0.7-1.3 SODIUM 140 mmol/L 135-148 CHLORIDE 104 mmol/L 98-110 CARBON DIOXIDE 27 mmol/L 21-32 URIC ACID - 08/20/15 03:19 URIC ACID 6.7 mg/dL 3.5-8.5 HELICOBACTER UREASE SCREEN - 08/20/15 09:50 Microbiology CBC W/DIFF - 09/02/15 14:20 EOSINOPHIL # 0.2 k/cumm 0.1-0.5 EOSINOPHIL % 1 % 2-4 GRANULOCYTE # 7.5 k/cumm 2.0-9.0 GRANULOCYTE % 73 % 50-75 LYMPHOCYTE # 2.0 k/cumm 1.0-4.0 LYMPHOCYTE % 19 % 20-30 MEAN CELL HGB 29.6 pg 27.0-33.0 MEAN CELL HGB CONCENTRATION 33.8 g/dL 32.0-37.0 MEAN CELL VOLUME 87.4 fl 80.0-100.0 MONOCYTE # 0.7 k/cumm 0.1-1.0 MONOCYTE % 7 % 4-6 RED BLOOD CELL 4.77 m/cumm 4.00-6.00 RED CELL DISTRIBUTION WIDTH 14.6 % 11.0- 15.6 WHITE BLOOD CELL 10.4 k/cumm 5.0-10.0 HEMOGLOBIN 14.1 gm/dL 14.0-18.0 HEMATOCRIT 41.7 % 40.0-54.0 PLATELET COUNT 297 k/cumm 150-450 PROTHROMBIN TIME WITH INR - 09/02/15 14:20 INTERNATIONAL NORMAL RATIO 2.5 0.9-1.1 PROTHROMBIN TIME 29.1 sec 9.3-12.2 METABOLIC PANEL, COMPREHN - 09/02/15 14:20 POTASSIUM 4.4 mmol/L 3.5-5.3 EST GFR (MDRD) > 60 mL/min > 59 ANION GAP 7 mmol/L 5-15 EST CrCl (CG) > 60 mL/min > 59 GLUCOSE 91 mg/dL 70-99 CALCIUM 9.1 mg/dL 8.5-10.1 BLOOD UREA NITROGEN 14 mg/dL 7-20 CREATININE 1.0 mg/dL 0.7-1.3 SODIUM 139 mmol/L 135-148 CHLORIDE 103 mmol/L 98-110 AST/SGOT 15 Units/L 10-37 ALT/SGPT 25 Units/L < 66 CARBON DIOXIDE 29 mmol/L 21-32 TOTAL PROTEIN 7.7 gm/dL 6.4-8.2 ALBUMIN 3.5 gm/dL 3.4-5.0 BILI TOTAL 0.3 mg/dL 0.0-1.0 ALKALINE PHOSPHATASE TOTAL 61 IU/L 45- 117 TROPONIN I - 09/02/15 14:20 TROPONIN I < 0.02 ng/mL < 0.07 D-DIMER QUANT - 01/29/16 11:40 D-DIMER QUANT < 150 ng/mL 0-229 CBC W/DIFF - 01/29/16 11:45 EOSINOPHIL # 0.3 k/cumm 0.1-0.5 EOSINOPHIL % 3 % 2-4 GRANULOCYTE # 5.2 k/cumm 2.0-9.0 GRANULOCYTE % 62 % 50-75 LYMPHOCYTE # 2.2 k/cumm 1.0-4.0 LYMPHOCYTE % 27 % 20-30 MEAN CELL HGB 30.3 pg 27.0-33.0 MEAN CELL HGB CONCENTRATION 33.4 g/dL 32.0-37.0 MEAN CELL VOLUME 90.8 fl 80.0-100.0 MONOCYTE # 0.7 k/cumm 0.1-1.0 MONOCYTE % 9 % 4-6 RED BLOOD CELL 4.22 m/cumm 4.00-6.00 RED CELL DISTRIBUTION WIDTH 13.8 % 11.0- 15.6 WHITE BLOOD CELL 8.4 k/cumm 5.0-10.0 HEMOGLOBIN 12.8 gm/dL 14.0-18.0 HEMATOCRIT 38.3 % 40.0-54.0 PLATELET COUNT 312 k/cumm 150-450 PROTHROMBIN TIME WITH INR - 01/29/16 11:45 INTERNATIONAL NORMAL RATIO 1.0 0.9-1.1 PROTHROMBIN TIME 11.3 sec 9.3-12.2 METABOLIC PANEL, COMPREHN - 01/29/16 11:45 POTASSIUM 3.9 mmol/L 3.5-5.3 EST GFR (MDRD) > 60 mL/min > 59 ANION GAP 8 mmol/L 5-15 EST CrCl (CG) > 60 mL/min > 59 GLUCOSE 116 mg/dL 70-99 CALCIUM 9.5 mg/dL 8.5-10.1 BLOOD UREA NITROGEN 12 mg/dL 7-20 CREATININE 1.0 mg/dL 0.7-1.3 SODIUM 140 mmol/L 135-148 CHLORIDE 99 mmol/L 98-110 AST/SGOT 21 Units/L 10-37 ALT/SGPT 34 Units/L < 66 CARBON DIOXIDE 33 mmol/L 21-32 TOTAL PROTEIN 8.0 gm/dL 6.4-8.2 ALBUMIN 3.7 gm/dL 3.4-5.0 BILI TOTAL 0.4 mg/dL 0.0-1.0 ALKALINE PHOSPHATASE TOTAL 59 IU/L 45- 117 TROPONIN I - 01/29/16 11:45 TROPONIN I 0.07 ng/mL < 0.07 Encounters ACCT No. Visit Date/Time Discharge Status Pt. Type Provider Facility Loc./Unit Complaint [id number] 12/24/2013 16:16:00 12/24/2013 23 :59:59 CLS Outpatient [id number] 12/17/2013 11:16:00 12/17/2013 23 :59:59 CLS Outpatient [id number] 12/17/2013 10:52:00 12/17/2013 23 :59:59 CLS Outpatient
--- OUTSIDE RECORDS SUMMARY | 2017-03-15 17:00 | XMS REPORT ---
Author Author Stuart Baltazar Organization [facility] Address [address] [place], [place] [address] Care Team Providers Care Ash Collector Name Role Phone Stuart Baltazar Unavailable [phone] PROBLEMS Type Condition ICD9-CM Code KXS65-YG Code Onset Dates Condition Status SNOMED Code Problem Anxiety 300.00 Active 70997671 Problem Hypothyroidism E03.9 Active 18162268 Problem Hypothyroidism 244.9 Active 93275375 Problem Panic attacks F41.0 Active 88169131 Problem Hyperlipidemia 272.4 Active 09922077 Problem Depression F32.9 Active 371692628 Problem Atrial fibrillation with RVR I48.91 Active 02864396 Problem Chronic anticoagulation Z79.01 Active 334005753 Problem Anxiety about health F41.8 Active 135137233 Problem Insomnia G47.00 Active 760931731 Problem Coronary artery disease 414.00 Active 45670982 Problem Gout 274.9 Active 64645867 Problem Essential hypertension 401.9 Active 94277329 Problem Knee pain, left M25.562 Active 683339452 Problem Coronary artery disease I25.10 Active 32036856 Problem Gout M10.9 Active 10446206 Problem 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 Active 072948378039128 Problem Acute gout 274.01 Active 95992442 Problem Atrial fibrillation 427.31 Active 48640161 Problem Atrial fibrillation with RVR 427.31 Active 41276284 Problem Cellulitis, face 682.0 Active 498484675 Problem Depression 311 Active 481819661 Problem Essential hypertension I10 Active 95659025 Problem Seborrheic dermatitis 690.10 Active 38975432 Problem Chronic anticoagulation V58.61 Active 901624073 ALLERGIES Unknown Allergies SOCIAL HISTORY No smoking Hx information available PLAN OF CARE VITAL SIGNS MEDICATIONS Unknown Medications RESULTS No Results PROCEDURES No Known procedures IMMUNIZATIONS No Known Immunizations
--- OUTSIDE RECORDS SUMMARY | 2017-03-15 17:00 | XMS REPORT ---
Author Author [employer] SYSTEM Organization Unknown Address Unknown Phone Unavailable Care Team Providers Care Slice Cutting Machine Operator Name Role Phone UNASSIGNED DOCTOR , DOCTOR PP [phone] Reason For Visit Chief Complaint CHEST PAIN/WEAKNESS [...] (65-99 MG/DL) GFR EST NON AFR MALIAN 72 ML/MIN GFRA EST AFR AMER 84 [...]
--- OUTSIDE RECORDS SUMMARY | 2017-03-15 17:00 | XMS REPORT ---
Author Author [employer] Organization Unknown Address Unknown Phone Unavailable Care Team Providers Care Merchandise Flow Team Member Name Role Phone UNASSIGNED DOCTOR MD TEZ DOCTOR PP [phone] Reason For Visit Chief Complaint CHEST PAIN [...]
[2017-03-15] MEDS ORDERED: DULO60CA56 PO (17:11)
[2017-03-15] MEDS ORDERED: HYDR50TA48 PO (17:14)
--- OUTSIDE RECORDS SUMMARY | 2017-03-15 17:21 | XMS REPORT ---
Author Author [employer] SYSTEM Organization Unknown Address Unknown Phone Unavailable Care Team Providers Care Telecommunications Network Engineer Name Role Phone UNASSIGNED DOCTOR , DOCTOR PP [phone] Reason For Visit Chief Complaint CHEST PAIN, [...] H (65-99 MG/DL) GFR EST NON AFR [place] 72 ML/MIN GFRA EST AFR AMER 84 [...] 0067 - CHEST 2 VIEWS CPT Code(s): 90199-; ; ; INDICATION / CLINICAL HISTORY: Chest [...]
--- OUTSIDE RECORDS SUMMARY | 2017-03-15 17:21 | XMS REPORT ---
Author Author [employer] Organization Unknown Address Unknown Phone Unavailable Care Team Providers Care Beer Merchant Name Role Phone UNASSIGNED DOCTORMD DOCTOR PP [phone] Reason For Visit Reason for Visit from [...] the responsibility of the patient or patient construction representative to confirm the list of medications [...]
--- OUTSIDE RECORDS SUMMARY | 2017-03-15 17:21 | XMS REPORT ---
Author Author [employer] SYSTEM Organization Unknown Address Unknown Phone Unavailable Care Team Providers Care Sales Attendant Name Role Phone UNASSIGNED DOCTOR , DOCTOR PP [phone] Reason For Visit Reason for Visit from [...] 1-2 weeks * Address # 1 : [facility]: [facility] [place], [place]- or Treatment Plan from 03/12/2015 1:15 PM:* [...] the responsibility of the patient or patient enrollment representative to confirm the list of medications [...] and at bedtime Additional Instructions: Dr PRAKASH Cbaan's office is resp for refills * allopurinol [...]
--- OUTSIDE RECORDS SUMMARY | 2017-03-15 17:22 | XMS REPORT ---
Author Author [employer] Organization Unknown Address Unknown Phone Unavailable Care Team Providers Care Truck Dispatcher Name Role Phone MD CORINNE, JOVAN PP [phone] Reason For Visit Chief Complaint ATRIAL FLUTTER [...]
--- OUTSIDE RECORDS SUMMARY | 2017-03-15 17:22 | XMS REPORT ---
Author Author [employer], SYSTEM Organization Unknown Address Unknown Phone Unavailable Care Team Providers Care Tooling Mechanic Name Role Phone UNASSIGNED DOCTOR , DOCTOR PP [phone] Reason For Visit Chief Complaint CHEST PAIN [...] H (65-99 MG/DL) GFR EST NON AFR [place] >90 ML/MIN GFRA EST AFR AMER >90 [...]
--- OUTSIDE RECORDS SUMMARY | 2017-03-15 17:22 | XMS REPORT ---
Author Author GENERATED, SYSTEM Organization Unknown Address Unknown Phone Unavailable Care Team Providers Care Management Lecturer Name Role Phone MD CORINNE, JOVAN [phone] Reason For Visit Reason for Visit from [...] 2:00 PM * Address # 1 : [facility]: [facility] [address] [place]- or * #2 Office [...] the responsibility of the patient or patient workforce services representative to confirm the list of medications with either the patient's personal care provider or the patient's follow-up care provider to ensure the patient has an appropriate list of medications to take at home. Discharge medications Continued medications* allopurinol 300 mg Tablet, Ordered By: JILLIAN TO, E COMMERCE ARCHITECT Directions: 1 tablet oral daily * flecainide 50 mg Tablet, Ordered By: JILLIAN TO, E COMMERCE ARCHITECT Directions: 1 tablet oral twice a day * indomethacin 50 mg Capsule, Ordered By: JILLIAN TO, E COMMERCE ARCHITECT Directions: 1 capsule oral twice a day PRN pain * levothyroxine (Synthroid) 50 mcg Tablet, Ordered By: JILLIAN TO, E COMMERCE ARCHITECT Directions: 1 tablet oral daily every morning * LORazepam (Ativan) 0.5 mg Tablet, Ordered By: JILLIAN TO, E COMMERCE ARCHITECT Directions: 1 tablet oral daily PRN anxiety * metoprolol tartrate 50 mg Tablet, Ordered By: JILLIAN TO E COMMERCE ARCHITECT Directions: 1 tablet oral twice a day every morning and at bedtime Additional Instructions: Dr PRAKASH Caban's office is resp for refills * pantoprazole (ProTONIX) 40 mg tablet,delayed release (DR/EC), Ordered By: JILLIAN TO APRN Directions: 1 tablet oral daily before breakfast * pravastatin 40 mg Tablet, Ordered By: JILLIAN TO E COMMERCE ARCHITECT Directions: 1 tablet oral daily at bedtime * sertraline (Zoloft) 100 mg Tablet, Ordered By: JILLIAN TO, E COMMERCE ARCHITECT Directions: 1 tablet oral daily every evening * temazepam 30 mg Capsule, Ordered By: JILLIAN TO, E COMMERCE ARCHITECT Directions: 1 capsule oral daily at bedtime * warfarin 4 mg Tablet, Ordered By: JILLIAN TO, E COMMERCE ARCHITECT Directions: 1 tablet oral daily Additional Instructions: takes 4 followed by 8 mg for 3 days, then 4 mg for one day followed by 8 mg for 3 days Stopped medications* None
--- OUTSIDE RECORDS SUMMARY | 2017-03-15 17:22 | XMS REPORT ---
Author Author GENERATED, SYSTEM Organization Unknown Address Unknown Phone Unavailable Care Team Providers Care Operator Helper Name Role Phone UNASSIGNED DOCTOR MD TEZ DOCTOR PP [phone] Reason For Visit Chief Complaint CHEST PAIN/ [...]
--- OUTSIDE RECORDS SUMMARY | 2017-03-15 17:23 | XMS REPORT ---
Author Author GENERATED, SYSTEM Organization Unknown Address Unknown Phone Unavailable Care Team Providers Care Call Center Representative Name Role Phone UNASSIGNED DOCTOR , DOCTOR PP [phone] Reason For Visit Chief Complaint CHEST PAIN [...]
--- OUTSIDE RECORDS SUMMARY | 2017-03-15 17:23 | XMS REPORT ---
Author Author GENERATED, SYSTEM Organization Unknown Address Unknown Phone Unavailable Care Team Providers Care It Security Manager Name Role Phone UNASSIGNED DOCTOR MD TEZ DOCTOR PP [phone] Reason For Visit Reason for Visit from [...] 0393 - MYOCARDIAL PERF PHARMACOLOGICAL CPT Code(s): 50563-; ; ; INDICATION / CLINICAL HISTORY: Chest [...] of the patient or patient sales representative consultant to confirm the list of medications with either the patient's personal care provider or the patient's follow-up care provider to ensure the patient has an appropriate list of medications to take at home. Discharge medications New medications* metoprolol tartrate 25 mg Tablet, Ordered By: MARIAJOSE STROUD MD Directions: 0.5 tablet oral twice [...]
--- OUTSIDE RECORDS SUMMARY | 2017-03-15 17:23 | XMS REPORT ---
Author Author GENERATED, SYSTEM Organization Unknown Address Unknown Phone Unavailable Care Team Providers Care Financial Planning Adviser Name Role Phone UNASSIGNED DOCTOR , DOCTOR PP [phone] Reason For Visit Chief Complaint CHEST PAIN/WEAKNESS [...] H (65-99 MG/DL) GFR EST NON AFR BOTSWANAN 72 ML/MIN GFRA EST AFR AMER 84 [...]
--- OUTSIDE RECORDS SUMMARY | 2017-03-15 17:24 | XMS REPORT ---
Author Author GENERATED, SYSTEM Organization Unknown Address Unknown Phone Unavailable Care Team Providers Care Meat Products Demonstrator Name Role Phone UNASSIGNED DOCTOR , DOCTOR PP [phone] Reason For Visit Reason for Visit from [...] H (65-99 MG/DL) GFR EST NON AFR MACANESE 78 ML/MIN GFRA EST AFR AMER >90 [...] 1:00 PM * Address # 1 : [facility]: [address] [place]- [phone] or Treatment Plan from 02/11/2015 10:35 AM:* [...] the ICU due to Rapid A Fib (ZL=670 in ER) and Chest Pain. Patient currently [...] responsibility of the patient or patient veterans contact representative to confirm the list of medications [...]
--- OUTSIDE RECORDS SUMMARY | 2017-03-15 17:24 | XMS REPORT ---
Author Author GENERATED, SYSTEM Organization Unknown Address Unknown Phone Unavailable Care Team Providers Care Composition Stone Applicator Name Role Phone MD CORINNE, JOVAN PP [phone] Reason For Visit Chief Complaint 786.50, CHEST [...]
--- OUTSIDE RECORDS SUMMARY | 2017-03-15 17:24 | XMS REPORT ---
Author Author GENERATED, SYSTEM Organization Unknown Address Unknown Phone Unavailable Care Team Providers Care Director Occupational Name Role Phone UNASSIGNED DOCTOR , DOCTOR PP [phone] Reason For Visit Chief Complaint SOB Social [...] H (65-99 MG/DL) GFR EST NON AFR FINNISH >90 ML/MIN GFRA EST AFR AMER >90 [...] 0066 - CHEST 1 VIEW CPT Code(s): 17841-; ; ; INDICATION / CLINICAL HISTORY: Shortness [...]
--- OUTSIDE RECORDS SUMMARY | 2017-03-15 17:24 | XMS REPORT ---
Author Author GENERATED, SYSTEM Organization Unknown Address Unknown Phone Unavailable Care Team Providers Care Engagement Liaison Name Role Phone UNASSIGNED DOCTOR , DOCTOR PP [phone] Reason For Visit Reason for Visit from [...]
--- OUTSIDE RECORDS SUMMARY | 2017-03-15 17:24 | XMS REPORT ---
Author Author GENERATED, SYSTEM Organization Unknown Address Unknown Phone Unavailable Care Team Providers Care Weapons Officer Naval Activity Name Role Phone MD CORINNE, JOVAN PP [phone] Reason For Visit Chief Complaint FALL, LT [...] of Care Procedures * Completed Procedure Code: [id number] Procedure Name: not valued, on 02/17/2016 12 :00 AM * Completed Procedure Code: [id number] Procedure Name: not valued, on 02/17/2016 12 :00 AM * Completed Procedure Code: [id number] Procedure Name: not valued, on 02/17/2016 12 [...]
--- OUTSIDE RECORDS SUMMARY | 2017-03-15 17:25 | XMS REPORT ---
Author Author GENERATED, SYSTEM Organization Unknown Address Unknown Phone Unavailable Care Team Providers Care Rebeamer Name Role Phone MD CORINNE, JOVAN [phone] Reason For Visit Reason for Visit from [...] H (65-99 MG/DL) *GFR EST NON AFR CAMBODIAN 68 ML/MIN *GFRA EST AFR AMER 78 [...] H (65-99 MG/DL) *GFR EST NON AFR CAMBODIAN 77 ML/MIN *GFRA EST AFR AMER 89 [...] 2:15 PM * Address # 1 : [place] * #2 Office appointment: : Fol[place] bob w/ PCP in 1 to 2 weekscall to schedule * Address # 2 : [facility]: [address], [facility] Treatment Plan from 12/15/2015 1:40 [...] the responsibility of the patient or patient plastic products sales representative to confirm the list of [...] * indomethacin 50 mg Capsule, Ordered By: SANDAR FLEMING PA-C Directions: 1 capsule oral twice [...]
--- OUTSIDE RECORDS SUMMARY | 2017-03-15 17:26 | XMS REPORT ---
Author Author GENERATED, SYSTEM Organization Unknown Address Unknown Phone Unavailable Care Team Providers Care Dry Chain Operator Name Role Phone MD CORINNE, JOVAN [phone] Reason For Visit Reason for Visit from [...] 02/16/2016 11:01 CT Scan from 02/16/2016 10:18 [facility] CHEST (CTA) History: Chest Pain . Technique: [...] 9:00 AM * Address # 1 : [facility]: [facility] [place] * #2 [...] the responsibility of the patient or patient insurance service representative to confirm the list of [...] indomethacin 50 mg Capsule, Ordered By: RUT ESAY RN Directions: 1 capsule oral daily PRN [...]
--- OUTSIDE RECORDS SUMMARY | 2017-03-15 17:26 | XMS REPORT ---
Author Author GENERATED, SYSTEM Organization Unknown Address Unknown Phone Unavailable Care Team Providers Care Glue Maker Bone Name Role Phone MD CORINNE, JOVAN PP [phone] Reason For Visit Chief Complaint CHEST PAIN [...]
--- OUTSIDE RECORDS SUMMARY | 2017-03-15 17:26 | XMS REPORT ---
Author Author GENERATED, SYSTEM Organization Unknown Address Unknown Phone Unavailable Care Team Providers Care Material Inspector Name Role Phone MD CORINNE, [facility] [phone] Reason For Visit Chief Complaint CHEST PAIN [...] H (65-99 MG/DL) *GFR EST NON AFR UKRAINIAN 74 ML/MIN *GFRA EST AFR AMER 85 [...]
--- OUTSIDE RECORDS SUMMARY | 2017-03-15 17:28 | XMS REPORT ---
Author Author GENERATED, SYSTEM Organization Unknown Address Unknown Phone Unavailable Care Team Providers Care Forest Biometrics Professor Name Role Phone UNASSIGNED DOCTOR , DOCTOR PP [phone] Reason For Visit Chief Complaint CHEST PAIN/WEAKNESS [...] H (65-99 MG/DL) GFR EST NON AFR ROMANIAN 72 ML/MIN GFRA EST AFR AMER 84 [...]
--- OUTSIDE RECORDS SUMMARY | 2017-03-15 17:28 | XMS REPORT ---
Author Author GENERATED, SYSTEM Organization Unknown Address Unknown Phone Unavailable Care Team Providers Care Special Education Tutor Name Role Phone UNASSIGNED DOCTOR MD TEZ DOCTOR PP [phone] Reason For Visit Chief Complaint CHEST PAIN [...]
--- OUTSIDE RECORDS SUMMARY | 2017-03-15 17:28 | XMS REPORT | Continuity of Care Document ---
Author Author [facility] Organization [facility] Address Unknown Phone Unavailable Allergies Active [...] Mild UNKNOWN 08/17/2015 Yes Darvon NKMA N/A [id number] 01/25/2016 Yes atorvastatin atorvastatin Drug Allergy Mild INCREASED HEART RATE 01/29/2016 Yes codeine codeine Drug Allergy Mild UNKNOWN 01/29/2016 Yes propoxyphene propoxyphene Drug Allergy Mild BREATHING 01/29/2016 Medications Problems Date Dx Coded Attending Type Code Diagnosis Diagnosed By 06/04/2015 DAVID TONG 58519 CHEST PAIN NOS 06/04/2015 DAVID TONG V1582 [...] Green MD I25.10 ATHSCL HEART DISEASE OF [place] CORONARY ARTERY W/O 08/17/2015 Peter REAGAN, Sharmila [...] ANNIE YAÑEZ 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 12/23/2015 ANNIE YAÑEZ I480 Paroxysmal atrial fibrillation 12/23/2015 ANNIE YAÑEZ R079 Chest pain, unspecified 12/23/2015 ANNIE YAÑEZ Z6842 Body mass index (BMI) 45.0-49.9, adult 12/23/2015 ANNIE YAÑEZ Z7982 terminal computer operator (current) use of aspirin 12/23/2015 ANNIE YAÑEZ B75247 Other oil heaterman (current) drug therapy 12/23/2015 ANNIE YAÑEZ Z8673 Prsnl hx of TIA (TIA), and cereb infrc w/o resid deficits 12/23/2015 ANNIE YAÑEZ R17709 Personal history of nicotine dependence 01/13/2016 KEIRY STROUD E039 Hypothyroidism, unspecified 01/13/2016 KEIRY STROUD E669 Obesity, unspecified 01/13/2016 KEIRY STROUD E785 Hyperlipidemia, unspecified 01/13/2016 KEIRY STROUD F419 Anxiety disorder, unspecified 01/13/2016 KEIRY STROUD I10 Essential (primary) hypertension 01/13/2016 KEIRY STROUD 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 01/13/2016 KEIRY STROUD I480 Paroxysmal atrial fibrillation 01/13/2016 KEIRY STROUD R0789 Other chest pain 01/13/2016 KEIRY STROUD R079 Chest pain, unspecified 01/13/2016 KEIRY STROUD R791 Abnormal coagulation profile 01/13/2016 KEIRY STROUD Z6841 Body mass index (BMI) 40.0-44.9, adult 01/13/2016 KEIRY STROUD Z7901 snf (current) use of anticoagulants 01/13/2016 KEIRY STROUD U03663 Other fpc (current) drug therapy 01/13/2016 KEIRY STROUD Z8673 [...] MD Final 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 02/01/2016 Timi [...] 02/01/2016 Timi De Dios MD Final Z79.01 snf (current) use of anticoagulants 02/01/2016 Timi De [...] MD Final 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 02/02/2016 Timi [...] Ella STROUD 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 02/25/2016 Ella STROUD I4891 Unspecified atrial fibrillation 02/25/2016 Ella STROUD R0789 Other chest pain 02/25/2016 Ella STROUD R079 Chest pain, unspecified 02/25/2016 Ella STROUD Z6841 Body mass index (BMI) 40.0-44.9, adult 02/25/2016 Ella STROUD Z7901 snf (current) use of anticoagulants 02/25/2016 Ella STROUD Z955 Presence of coronary angioplasty implant and graft 04/04/2016 OC ANDERSON [id number] Sprain of unspecified site of left knee, initial encounter 04/04/2016 OC ANDERSON [id number] Exposure to other specified factors, initial encounter 04/04/2016 OC ANDERSON Y[address] or not applicable 04/04/2016 OC ANDERSON Y939 Activity, unspecified 04/04/2016 OC ANDERSON Y999 Unspecified external cause status 04/04/2016 OC ANDERSON Z7901 terminal computer operator (current) use of anticoagulants 04/04/2016 OC ANDERSON [id number] Other oil heaterman (current) drug therapy 04/04/2016 OC ANDERSON P23265 Personal history of nicotine dependence Procedures Code Description Performed By Performed On [id number] EXCISION OF STOMACH, ENDO, DIAGN Peter REAGAN, Sharmila H 08/17/2015 [id number] 02/17/2016 [id number] 02/17/2016 [id number] 02/17/2016 Results Test Result Range TROPONIN I [...] Status Pt. Type Provider Facility Loc./Unit Complaint [id number] 12/24/2013 16:16:00 12/24/2013 23 :59:59 CLS Outpatient [id number] 12/17/2013 11:16:00 12/17/2013 23 :59:59 CLS Outpatient [id number] 12/17/2013 10:52:00 12/17/2013 23 :59:59 CLS Outpatient
--- NOTE | 2017-03-15 17:36 | NUR ---
REPORT TO NARAYAN MOORE FOR CONT CARE .
[2017-03-15] MEDS ORDERED: ORPHENADRINE 60mg/2ml INJECTION IM ONE (18:00)
[2017-03-15] MEDS ORDERED: MORPHINE SULFATE 4 MG SYRINGE IM ONE (18:00)
--- NOTE | 2017-03-15 18:12 | NUR ---
TO CT VIA CART
--- NOTE | 2017-03-15 18:27 | NUR ---
RETURN FROM CT
[2017-03-15] MEDS ORDERED: KETOROLAC 60mg/2ml INJECTION IM ONE (19:00)
--- NOTE | 2017-03-15 19:00 | ERPDOC ---
Departure Disposition Decision Date: March 15, 2017 Disposition Decision Time: 19:33 Disposition: [address] [facility] ACUTE CARE Impression Impression Impression: Primary Impression: L3 vertebral fracture Encounter type: initial encounter Fracture type: closed Fracture morphology : other fracture Qualified Codes: S32.038A - Other fracture of third lumbar vertebra, initial encounter for closed fracture Additional Impression: Spinal stenosis Spinal region: lumbar Qualified Codes: M48.06 - Spinal stenosis, lumbar region Severity: Severe Condition: Improved Seen By: Physician only Problems/Meds/Labs Reviewed?: Yes Medications reviewed and manag: Yes Follow up care ordered?: Yes Mental Status: Alert, Oriented HPI - Fall/Injury General Chief Complaint: Fall Stated Complaint: FALL Time Seen by Provider: 17:07 Source: patient Exam Limitations: no limitations HPI - Fall/Injury Initial Comments 51yo man presents to the ER after a fall. Pt now has LBP, R>>L along with b/l paresthesias and tenesmus. Occurred At: home Onset: Rapid Duration: 1-3 hrs Pain Scale: Now & Worst: 8/10 Severity: severe Injuries/Pain Location: back 1 - Pain 2 - Pain Context: slipped, tripped Loss of Consciousness: no loss of consciousness Modifying Factors: IMPROVES WITH: cold therapy, immobilization, pain medication , WORSE WITH: jarring, movement Associated Symptoms: muscle spasms Hx of Similar Symptoms: No Allergies: Coded Allergies: ceftriaxone sodium (Verified Allergy, Severe, TONGUE SWELLING, DIFFICULTY BREATHING, 03/15/17) codeine (Verified Allergy, Unknown, 03/15/17) propoxyphene HCl (Verified Allergy, Unknown, 03/15/17) Past History Past Medical History Metabolic: gout, hypercholesterolemia, hypertension, hypothyroidism Cardiac: A-fib, CAD, PA Hx Echocardiogram: No Musculoskeletal: back pain Integumentary: eczema Psychological: anxiety, depression Surgical History General: appendix, back, gallbladder, hernia, tonsils Cardiac: cardiac cath Joint: elbow, hip, shoulder Family History Family PMH: FOUND: PA, diabetes Vaccines Hx Influenza Vaccination: No Hx Pneumococcal Vaccination: No Social History Sexuality: female partner Household Members: family Review of Systems Musculoskeletal General: cramps, pain Physical Exam General General Nourishment: well nourished, well developed, appears stated age, no acute distress, adult, obese General Body Habitus: well groomed Vitals and Pain First Documented Vital Signs Date Time Temp Pulse Resp B/P Pulse Ox O2 Delivery O2 Flow Rate FiO2 03/15/17 16:52 97.0 76 18 142/85 95 Room Air Weight: Kilograms: 140.000 Height (feet): 5 Height (inches): 10.00 Triage Pain Scale: RN VS reviewed by Provider: Yes Normal Exams: Head: Normocephalic w/o trauma Eyes: Pupils are PERRLA w/ EOMI, No scleral icterus, irritation ENMT: No facial trauma, nasal exudates, pharyngeal erythema Neck: Full range of motion, without adenopathy, JVD Lymphatic: No lymphadenopathy Musculoskeletal: No tenderness, or deformity noted Integumentary: No rashes, hives, or bruising noted Neurologic: Patient is alert, and oriented Psychiatric: Patient exhibits, appropriate attention Neurologic (brief) Neurological Brief: FOUND: CN w/o gross def to obs, DTR 2/4 all extremities, gait w/o gross def to obs, motor-no gross deficits, sensory-no gross deficits, NOT FOUND: Babinski Supervisory Exam Neck: trachea midline Chest: symmetric Abdomen: non-distended Differential Diagnoses Considering: Contusion, Dislocation, Fracture, Sprain, Strain Progress Results/Orders Orders Procedure Category Date Status Time Morphine Sulfate PHA 03/15/17 Complete (Morphine) 18:00 Orphenadrine (Norflex) PHA 03/15/17 Complete 18:00 Ct Lumbar Spine W/O CT 03/15/17 Taken Contrast 17:54 Ct Thoracic Spine W/O CT 03/15/17 Taken Contrast 17:54 Ketorolac (Toradol) PHA 03/15/17 Complete 19:00 Iv Lock (Ed Only) EDM 03/15/17 Transmitted 19:39 Morphine Sulfate PHA 03/15/17 Complete (Morphine) 19:45 Lorazepam (Ativan) PHA 03/15/17 Complete 19:45 Medications Current ED Medications Morphine Sulfate (Morphine) 4 mg O ONCE IM Last administered on 03/15/17 17: 59; Start 03/15/17 at 18:00; Stop 03/15/17 at 18:01; Status DC Orphenadrine Citrate (Norflex) 60 mg O ONCE IM Last administered on 03/15/17 17:59; Start 03/15/17 at 18:00; Stop 03/15/17 at 18:01; Status DC Ketorolac Tromethamine (Toradol) 60 mg O ONCE IM Last administered on 18:45; Start 03/15/17 at 19:00; Stop 03/15/17 at 19:01; Status DC Morphine Sulfate (Morphine) 4 mg O ONCE IV Last administered on 03/15/17 20: 15; Start 03/15/17 at 19:45; Stop 03/15/17 at 19:46; Status DC Lorazepam (Ativan) 1 mg O ONCE IV Last administered on 03/15/17 20:15; Start 03/15/17 at 19:45; Stop 03/15/17 at 19:46; Status DC Progress Progress Pt with L3 fx and L3/4 severe spinal stenosis. Contacted trauma service at [facility]; pt accepted for txfr. Will complete ppwk and package for shipment. Consult/PCP Consult/PCP : Physician Contacted: Dr. Knott ([facility]) Time Called: 19:30 Time of first response: 19:30 Type of discussion: Admit Discussion/PCP Discussion Details Will accept for txfr CT CT #1: CT: Other (Lumbar CT) Interpretation: Abnormal (LE left inferior facet fx, with minimal displacement and comminuted; Right L3/4 small focal air in the right lateral recess; Multilevel DJD, worst at L3/4 with disc bulge and severe canal stenosis. ) CT #2: CT: Other (C/T spine) Interpretation: Abnormal (Moderate stenosis of cervical spinal canal; No thoracic pathology.) AVINASH HERNANDEZ DO March 15, 2017 19:00
[2017-03-15] MEDS ORDERED: LORAZEPAM 2 MG/ML INJECTION IV ONE (19:45)
[2017-03-15] MEDS ORDERED: MORPHINE SULFATE 4 MG SYRINGE IV ONE (19:45)
--- NOTE | 2017-03-15 20:00 | NUR ---
REPORT CALLED REPORT TO MACO PURI RN AT [facility]
--- NOTE | 2017-03-15 20:06 | NUR ---
911 CALLED EMS FOR TRANSFER TO [facility].
--- NOTE | 2017-03-15 20:17 | NUR ---
EMS REPORT REPORT IS GIVEN TO [facility].
[2017-03-15 20:30] VITALS: BP 168/84; PULSE 81; RESP 18; TEMP 97; O2SAT 98
--- NOTE | 2017-03-15 20:30 | NUR ---
TRANSFER COMPLETE PT IS TAKEN BY EMS COT FOR TRANSFER TO [facility]
--- NOTE | 2017-03-16 10:48 | DI ---
Indication: ITS.REASON: Fall; radicular sx CT LUMBAR SPINE W/O CONTRAST: Comparison: None Technique: Axial postreduction nonenhanced images with reformatted sagittal and coronal images. Findings: Patient showed no acute fractures of the vertebral bodies however, there is some lucency along the left inferior facet region which may represent a fracture. Patient demonstrates considerable heterotrophic and degenerative changes present and this may mimic this finding. Some soft tissue air is identified at the L3-4 level to the right of the midline in of doubtful acute significance. Patient shows mild to moderate degenerative changes at multiple levels. Axial imaging failed to show any significant spinal stenosis but does show mild neural foraminal narrowing at L3-4, L4-5 and mildly at L5-S1. Visualized sacroiliac joints were intact. Impression: 1. Questionable lucency in the posterior facet joint on the left side at the L3 level. This may just represent hypertrophic bony changes but there didn't seem to be a subtle lucency present. 2. Mild to moderate degenerative changes throughout the rest of the lumbar disc spaces without marked additional acute findings. 3. Findings were communicated to the ordering clinician by the V rad service on a callback basis. .
--- NOTE | 2017-03-16 11:54 | DI ---
Indication: ITS.REASON: Fall; radicular sx CT THORACIC SPINE W/O CONTRAST: Comparison: CT pulmonary angiogram with reformatted imaging 10/03/2016 Technique: Patient is scanned utilizing dose reduction imaging technology with axial images through the thoracic spine with reformatted sagittal and coronal images provided. Findings: Patient demonstrates degenerative changes particularly prominent in the lower cervical spine. The thoracic spine shows multilevel degenerative disc space narrowing and hypertrophic bony changes. No vertebral body fracture or marked malalignments are seen. Anterior bridging osteophytes are seen involving the mid and lower thoracic region. Impression: 1. Degenerative changes with bridging osteophytes but no marked acute vertebral body fracture is appreciated. .
== END 2017-03-15 20:30 | disposition short-term general hospital (02) ==
LOC: ED 16:48
DX: S32.038A Other fracture of third lumbar vertebra, initial encounter for closed fracture (principal); M48.06 Spinal stenosis, lumbar region; W19.XXXA Unspecified fall, initial encounter; Y93.9 Activity, unspecified; Y92.009 Unspecified place in unspecified non-institutional (private) residence as the place of occurrence of the external cause; Y99.8 Other external cause status
CPT/HCPCS: 96372